=== PATIENT | female | born 1955 | race Caucasian/White ===

== ENCOUNTER 2024-01-24 14:24 | Observation (INO) ==
[2024-01-24 15:15] LABS: Basophils % (auto) 1.5 %; Eosinophils # (auto) 0.34 K/uL (0.00-0.50); Eosinophils % (auto) 5.2 %; Hematocrit (blood only) 45.1 % (37.0-47.0); Hemoglobin 14.5 g/dl (12.0-16.0); Immature Granulocytes # (auto) 0.01 K/uL (0.01-0.20); Immature Granulocytes % (auto) 0.2 %; Lymphocytes # (auto) 3.08 K/uL (1.20-3.40); Lymphocytes % (auto) 47.1 %; Mean Corpuscular Hemoglobin 30.3 pg (25.0-34.0); Mean Corpuscular Hgb Conc 32.2 g/dL (32.0-36.0); Mean Corpuscular Volume 94.2 fL (80.0-100.0); Mean Platelet Volume 8.8 fL (9.4-12.4); Monocytes # (auto) 0.55 K/uL (0.11-0.59); Monocytes % (auto) 8.4 %; Neutrophils # (auto) 2.46 K/uL (1.40-6.50); Neutrophils % (auto) 37.6 %; Platelet Count 297 K/uL (130-400); RDW Coefficient of Variation 12.4 % (11.5-14.5); RDW Standard Deviation 43.5 fL (36.4-46.3); Red Blood Count 4.79 M/uL (4.20-5.40); White Blood Count 6.54 K/ul (4.8-10.8)
[2024-01-24 15:47] LABS: INR 0.9 (0.9-1.1); Partial Thromboplastin Time 26 Seconds (21-31); Prothrombin Time 10.3 Seconds (9.0-12.0)
[2024-01-24 16:15] LABS: Albumin Globulin Ratio 1.5 (0.9-2); Albumin Level 4.3 gm/dl (3.4-5.0); BUN Creatinine Ratio 14.9 (10-20); Bilirubin,Total 0.3 mg/dl (0.2-1.0); Calcium 9.5 mg/dl (8.6-10.3); Creatinine Clr Calc Pharmacy 59.1 ml/min; Est GFR (African American) 95.8 ml/min; Est GFR (Non-African American) 82.7 ml/min; Globulin 2.8 gm/dl (2.5-4.0); Potassium 4.4 mmol/L (3.5-5.1); Total Protein 7.1 gm/dl (6.0-8.3)
--- NOTE | 2024-01-24 16:15 | XRay Report ---
SINGLE VIEW CHEST CLINICAL HISTORY: Atypical chest pain. FINDINGS: A PA chest radiograph is compared to chest x-ray and chest CT dated 10/10/2014. The cardiome diastinal silhouette is unremarkable. The lungs and pleural spaces are clear. No pneumothorax is seen . The skeletal structures are osteopenic. The bony thorax is grossly intact. Cholecystectomy clips ar e seen in the right upper quadrant. An indeterminant radiodensity projects over the left cerebral cla vicular soft tissues. IMPRESSION: No active disease in the chest. ACT 112: Negative or not required by law. Electronically signed by: Tuan Rhodes M.D. 01/24/2024 4:13 PM
[2024-01-24 16:22] LABS: Troponin I High Sensitivity 4.7 pg/ml (0-14)
[2024-01-24] MEDS: ASPIRIN CHEW 324 MG PO STA (18:45)
--- NOTE | 2024-01-24 18:46 | Emergency Department Note ---
Impression & Plan Chest pain, LBBB (left bundle branch block) ED Provider Note NAME: RUDY ARANDA AGE: 69 SEX: F : 1955 ARRIVES VIA: Walk-In INFORMANT: Patient, ED PROVIDER(S): Rashid Pugh DO CHIEF COMPLAINT: Chest pain HPI: The patient is a 69-year-old female who presented to the emergency department for an evaluation of chest pain. The patient went to see her family doctor today because of ongoing and worsening symptoms over the course of the last several weeks. She was sent immediately to the emergency department for further workup because her EKG was abnormal. Patient denies having any fever or coughing. She denies having any lower extremity swelling. She denies having any difficulty breathing at this time but states when her pain is worse it seems to go to her back her arms and she also appears to be short of breath. The patient did not have an outpatient workup but was sent directly to the emergency department. ROS: See above HPI for pertinent positives & negatives. A total of 10 systems reviewed and were otherwise negative. PAST MEDICAL HISTORY: See Below PAST SURGICAL HISTORY: See Below FAMILY HISTORY: See Below SOCIAL HISTORY: See Below HOME MEDICATIONS: See Below ALLERGIES: See Below VITALS: See Below PHYSICAL EXAMINATION: GENERAL: Patient is awake alert in no acute distress patient is resting comfortably and showing no signs of anxiety EYES: The conjunctivae are clear. The pupils are round and reactive. EARS, NOSE, MOUTH AND THROAT: The nose is without any evidence of any deformity. NECK: The neck is nontender and supple. RESPIRATORY: Normal respiratory effort is noted there is no evidence of wheezing rhonchi or rales CARDIOVASCULAR: Regular rate and rhythm noted there no murmurs rubs or gallops normal S1 normal S2. GASTROINTESTINAL: The abdomen is soft. Abdomen is nontender. MUSCULOSKELETAL/EXTREMITIES: There is no evidence of gross deformity full range of motion is noted in the hips and shoulders. SKIN: There is no obvious evidence of any rash. There are no petechiae, pallor or cyanosis noted. NEUROLOGIC: Patient is awake alert and oriented x3 MEDICAL DECISION MAKING: The patient is a 69-year-old female who presented to the emergency department at the request of her primary care physician. The patient presented to her family doctor with chest discomfort and shortness of breath. She did note some radiation of the pain as well as exertional component. She was told to go to the emergency department because her EKG was abnormal. In the emergency department her EKG was compared to previous and does not appear to be significantly changed. The patient's cardiac biomarker was negative x 2 but given her age and comorbidities I do not feel the patient would be a good candidate for outpatient treatment. For this reason I discussed her condition with the on-call [facility] hospitalist. They have agreed to evaluate the patient in the emergency department for further management and disposition. The patient was treated with aspirin in the emergency department. Triage Nursing notes reviewed. Prior medical records reviewed Vital Signs: reviewed and remarkable for elevated blood pressure. Differential diagnosis: Cardiac ischemia, aortic dissection, pulmonary embolism, pneumothorax, pneumonia, pericarditis, myocarditis, esophageal rupture, GERD, cholecystitis, pancreatitis, musculoskeletal, as well as other pathologies. ER treatment provided: See below Diagnostics interpreted by me: ECG: EKG was obtained in the emergency department. My interpretation is normal sinus rhythm at 82 bpm. There was no ectopy. There was no acute ST segment abnormalities noted. A left bundle branch block pattern was noted. This was compared to a tracing from August 10, 2014. No changes were noted. Cardiac Monitoring: An order was placed for continuous cardiac monitoring. The monitor shows a rate of 73 bpm with sinus rhythm. Laboratory studies: As stated above and show below. Imaging studies: See below. Radiographic imaging was reviewed by myself Consultation(s): I discussed this case with Dr. Bowling who is on-call for the [facility] group. Past Med/Surg History Problem List (Updated 01/25/24 @ 00:37 by Rashid Pugh DO) LBBB (left bundle branch block) (Acute) Chest pain (Acute) Fibromyalgia (Chronic) Chest wall contusion (Acute) Fall (Acute) Social History Smoking Status: Never smoker Hx Alcohol Use: No Hx Substance Use: No Preferred Language: Japanese [employer] Required: No Beliefs That Will Affect Care: None Current Living Situation: Spouse Feels Safe at Home: Yes Assistive Devices: None Allergies Allergies Allergy/AdvReac Type Severity Reaction Status Date / Time No Known Allergies Allergy Unverified 01/24/24 20:02 Home Meds Home Medications Medication Instructions Recorded Confirmed alprazolam 0.5 mg tablet (Xanax) 0.5 mg PO BID #0 tabs 10/10/14 01/24/24 desvenlafaxine succinate 50 mg 50 mg PO QAM 01/24/24 01/24/24 tablet,extended release 24 hr esomeprazole magnesium 40 mg 40 mg PO HS 01/24/24 01/24/24 capsule,delayed release estradiol 0.01% (0.1 mg/gram) 1 g vaginal 3XWK 01/24/24 01/24/24 vaginal cream lisinopril 10 mg tablet 10 mg PO QAM 01/24/24 01/24/24 multivitamin 1 tab PO HS 01/24/24 01/24/24 tolterodine 4 mg capsule,extended 4 mg PO QAM 01/24/24 01/24/24 release 24 hr Results & Data (ED) Vital Signs Vital Signs - 24 hr 01/24/24 14:33 01/24/24 18:16 01/24/24 18:33 Temperature 36.7 C Temperature Source Temporal Artery Scan Pulse Rate 85 70 Pulse Rate [Apical] 71 Respiratory Rate 20 18 Respiratory Effort / Characteristics Non-Labored Spontaneous Respiratory Depth Normal Respiratory Pattern Regular Blood Pressure 145/75 H Blood Pressure [Right Arm] 184/74 H Blood Pressure Mean 98 Blood Pressure Mean [Right Arm] 110 Pulse Oximetry 98 98 Oxygen Delivery Method Room Air Room Air Sepsis Recent Fever Within 48 Hours No Sepsis New/Unexplained Change in Mental Status No Sepsis Action Taken by Nursing No Action Required 01/24/24 20:00 01/24/24 20:35 01/24/24 21:15 Temperature Temperature Source Pulse Rate 75 92 H Pulse Rate [Apical] 84 Respiratory Rate 17 Respiratory Effort / Characteristics Respiratory Depth Respiratory Pattern Blood Pressure 159/83 H 158/85 H Blood Pressure [Right Arm] 157/89 H Blood Pressure Mean Blood Pressure Mean [Right Arm] 111 Pulse Oximetry 97 Oxygen Delivery Method Room Air Sepsis Recent Fever Within 48 Hours Sepsis New/Unexplained Change in Mental Status Sepsis Action Taken by Nursing 01/24/24 22:00 Temperature Temperature Source Pulse Rate Pulse Rate [Apical] 73 Respiratory Rate 19 Respiratory Effort / Characteristics Respiratory Depth Respiratory Pattern Blood Pressure Blood Pressure [Right Arm] 125/76 Blood Pressure Mean Blood Pressure Mean [Right Arm] 92 Pulse Oximetry 95 Oxygen Delivery Method Room Air Sepsis Recent Fever Within 48 Hours Sepsis New/Unexplained Change in Mental Status Sepsis Action Taken by Skilled Nursing Medications Current Medication List: was personally reviewed by me Laboratory Data Attestation: I reviewed the patient's lab results. 01/24/24 14:50 01/24/24 14:50 Lab Results 01/24/24 01/24/24 Range/Units 14:50 18:50 WBC 6.54 (4.8-10.8) K/ul RBC 4.79 (4.20-5.40) M/uL Hgb 14.5 (12.0-16.0) g/dl Hct 45.1 (37.0-47.0) % MCV 94.2 (80.0-100.0) fL MCH 30.3 (25.0-34.0) pg MCHC 32.2 (32.0-36.0) g/dL RDW Std Deviation 43.5 (36.4-46.3) fL RDW Coeff of Nigel 12.4 (11.5-14.5) % Plt Count 297 (130-400) K/uL MPV 8.8 L (9.4-12.4) fL Immature Gran % (Auto) 0.2 % Neut % (Auto) 37.6 % Lymph % (Auto) 47.1 % [place] % (Auto) 8.4 % Eos % (Auto) 5.2 % Baso % (Auto) 1.5 % Neut # (Auto) 2.46 (1.40-6.50) K/uL Lymph # (Auto) 3.08 (1.20-3.40) K/uL [place] # (Auto) 0.55 (0.11-0.59) K/uL Eos # (Auto) 0.34 (0.00-0.50) K/uL Baso # (Auto) 0.10 (0.00-0.20) K/uL Immature Gran # (Auto) 0.01 (0.01-0.20) K/uL PT 10.3 (9.0-12.0) Seconds INR 0.9 (0.9-1.1) APTT 26 (21-31) Seconds PTT Ratio 1.0 Sodium 140 (136-145) mmol/L Potassium 4.4 (3.5-5.1) mmol/L Chloride 105 (98-107) mmol/L Carbon Dioxide 28 (21-32) mmol/L Anion Gap 7 (3-11) BUN 11 (6-23) mg/dl Creatinine 0.74 (0.6-1.2) mg/dl Est Cr Clr Drug Dosing 59.1 ml/min Est GFR ( Amer) 95.8 ml/min Est GFR (Non-Af Amer) 82.7 ml/min BUN/Creatinine Ratio 14.9 (10-20) Glucose 87 (70-99(Fasting)) mg/dl Calcium 9.5 (8.6-10.3) mg/dl Magnesium 2.1 (1.7-2.4) mg/dl Total Bilirubin 0.3 (0.2-1.0) mg/dl AST 22 (13-39) U/L ALT 17 (7-52) U/L Alkaline Phosphatase 79 (34-104) U/L Troponin I High Sens 4.7 4.4 (0-14) pg/ml Total Protein 7.1 (6.0-8.3) gm/dl Albumin 4.3 (3.4-5.0) gm/dl Globulin 2.8 (2.5-4.0) gm/dl Albumin/Globulin Ratio 1.5 (0.9-2) Administered Medications Alprazolam (Alprazolam 0.5 Mg Tablet) 0.5 mg PO BID CLARIBEL Stop: 02/23/24 22:29 Last Admin: 01/25/24 00:03 Dose: 0.5 mg Documented By: JUANCHO Lactated Ringer's (Lr) 1,000 mls @ 50 mls/hr IV .Q20H ONE Stop: 01/25/24 18:23 Last Admin: 01/24/24 23:34 Dose: 50 mls/hr Documented By: JUANCHO Multivitamins (Multivitamin Tab) 1 tab PO HS CLARIBEL Stop: 02/23/24 22:24 Last Admin: 01/25/24 00:03 Dose: 1 tab Documented By: JUANCHO Pantoprazole Sodium (Pantoprazole 40 Mg Tab) 40 mg PO HS CLARIBEL Stop: 02/23/24 22:44 Last Admin: 01/25/24 00:03 Dose: 40 mg Documented By: JUANCHO Discontinued Medications Aspirin (Aspirin Chew 324 Mg) 324 mg PO NOW STA Stop: 01/24/24 18:40 Last Admin: 01/24/24 18:45 Dose: 324 mg Documented By: CONCEPCION Metoprolol Tartrate (Metoprolol Tartrate 1 Mg/Ml Vial) 2.5 mg IV NOW STA Stop: 01/24/24 19:26 Last Admin: 01/24/24 20:35 Dose: 2.5 mg Documented By: KEVIN Imaging Data Attestation: I personally reviewed and interpreted this imaging study as follows: My Impression: 1 view chest x-ray was obtained in the emergency department. My interpretation is no free air or definite infiltrate, final report below. Radiologist's Impression: Chest X-Ray 01/24/24 14:36 SINGLE VIEW CHEST CLINICAL HISTORY: Atypical chest pain. FINDINGS: A PA chest radiograph is compared to chest x-ray and chest CT dated 10/10/2014. The cardiomediastinal silhouette is unremarkable. The lungs and pleural spaces are clear. No pneumothorax is seen. The skeletal structures are osteopenic. The bony thorax is grossly intact. Cholecystectomy clips are seen in the right upper quadrant. An indeterminant radiodensity projects over the left cerebral clavicular soft tissues. IMPRESSION: No active disease in the chest. ACT 112: Negative or not required by law. Electronically signed by: Tuan Rhodes M.D. 01/24/2024 4:13 PM Discharge Plan Visit Data Chief Complaint: Referred by Doctor Stated Complaint: ABD EKG, REF BY DOC ED Provider: Rashid Pugh Discharge Problem: Chest pain, LBBB (left bundle branch block) Patient Disposition: Admitted As Inpatient Discharge Instructions Interventions: ED Discharge Assessment Last Done: 01/24/24 22:49 Discharge Problem: Chest pain Qualifiers: Chest pain type: unspecified Qualified Code(s): R07.9 - Chest pain, unspecified
[2024-01-24 19:25] LABS: Troponin I High Sensitivity 4.4 pg/ml (0-14)
--- NOTE | 2024-01-24 19:38 | History & Physical Report ---
Date of Service January 24, 2024 History of Present Illness Chief Complaint: Chest Pain Primary Care Provider: Bella Quigley MD Tory Balbuena is a 69y/o F with PMHx of hyperlipidemia, HTN, IBS, diverticulosis, urinary incontinence, fibromyalgia, osteoporosis, depression, LUCAS and other problems listed below who presented to the ED for evaluation secondary to chest pain. History obtained from patient and associated chart review. Patient recently established care with Dr. Quigley at [facility] in October. Patient has been experiencing feelings of her "heart racing" since September. She thought it may be due to stress from getting ready to move here from [place] and figured it would go away once she was settled. Since October, she has noticed the frequency of these "heart racing" sensations have increased to occur almost weekly and are now associated with some chest pain. She describes this chest pain as more of a tightness rather than sharp. She had an EKG done by her PCP to day that showed the following: NSR, left ventricular hypertrophy with secondary QRS widening and LBBB. Patient with chronic history of LBBB. PCP ultimately recommended that the patient come to the ED for further evaluation given new finding of LVH with secondary QRS widening. Patient drove herself to the ED. She reports that she had a cardiac catheterization in the early to mid that was normal. She also mentions she had cardiac stress testing done in the past that was negative for any acute findings. EKG done in the ED showing NSR w/ HR 82bpm and LBBB. CXR negative for any active disease. Lab work rather unremarkable, troponin negative. She was loaded with aspirin 324mg in the ED. BP noted to be elevated at 184/75 at 18:33 in the ED. IV metoprolol tartrate 2.5mg was administered. Patient saturating well on RA. PRN nitroglycerin was ordered as well. Patient with frequent runs of PVCs with associated tachycardia throughout our conversation while she was at rest. Allergies Allergy/AdvReac Type Severity Reaction Status Date / Time No Known Allergies Allergy Unverified 01/24/24 20:02 Home Medications Medication Instructions Recorded Confirmed Type alprazolam 0.5 mg tablet (Xanax) 0.5 mg PO BID #0 tabs 10/10/14 01/24/24 History desvenlafaxine succinate 50 mg 50 mg PO QAM 01/24/24 01/24/24 History tablet,extended release 24 hr esomeprazole magnesium 40 mg 40 mg PO HS 01/24/24 01/24/24 History capsule,delayed release estradiol 0.01% (0.1 mg/gram) 1 g vaginal 3XWK 01/24/24 01/24/24 History vaginal cream lisinopril 10 mg tablet 10 mg PO QAM 01/24/24 01/24/24 History multivitamin 1 tab PO HS 01/24/24 01/24/24 History tolterodine 4 mg capsule,extended 4 mg PO QAM 01/24/24 01/24/24 History release 24 hr Past Med/Surg History Problem List (Updated 01/25/24 @ 00:37 by Rashid Pugh DO) LBBB (left bundle branch block) (Acute) Chest pain (Acute) Fibromyalgia (Chronic) Chest wall contusion (Acute) Fall (Acute) Social History Smoking Status: Never smoker Hx Alcohol Use: No Hx Substance Use: No Preferred Language: [place] [employer] Justice Required: No Beliefs That Will Affect Care: None Current Living Situation: Spouse Feels Safe at Home: Yes Assistive Devices: None Review of Systems Review of Systems: At least ten systems reviewed and negative, except as noted in the HPI. Physical Exam Physical Exam: General: WD/WN, vitals as above, NAD, sitting up in bed, pleasant, conversing appropriately. A+Ox3, euthymic affect. HEENT: Normocephalic, atraumatic. PERRL, conjunctivae normal, anicteric sclerae, oropharynx normal. Respiratory: Normal respiratory effort, lungs clear to auscultation, no wheeze, rales, rhonchi. No accessory muscle use. Cardiovascular: Regular rate, rhythm, no murmur, normal peripheral pulses, no BLE edema. Vessels: No JVD. Abdomen/GI: Normal bowel sounds, soft, nontender, no hepatosplenomegaly. Extremities/Musculoskeletal: No cyanosis or clubbing, extremities motor strength 5/5, moves all extremities. Neurologic: EOMI, accommodation nl, no face palsy, no dysarthria, CN's II-XI not formally tested but appear grossly intact bilaterally. Skin: No rashes, normal color, warm/dry. Results & Data Results & Data Vital Signs (Past 12 Hours) Vital Signs Temp Pulse Pulse Resp BP BP Pulse Ox 01/24/24 18:33 70 01/24/24 18:16 71 18 184/74 H 98 01/24/24 14:33 36.7 C 85 20 145/75 H 98 O2 Del Method 01/24/24 18:33 01/24/24 18:16 Room Air 01/24/24 14:33 Room Air Laboratory Results Short CBC 01/24/24 Range/Units 14:50 WBC 6.54 (4.8-10.8) K/ul Hgb 14.5 (12.0-16.0) g/dl Hct 45.1 (37.0-47.0) % Plt Count 297 (130-400) K/uL BMP 01/24/24 14:50 Sodium 140 Potassium 4.4 Chloride 105 Carbon Dioxide 28 BUN 11 Creatinine 0.74 Glucose 87 Calcium 9.5 Liver Function 01/24/24 Range/Units 14:50 Total Bilirubin 0.3 (0.2-1.0) mg/dl AST 22 (13-39) U/L ALT 17 (7-52) U/L Alkaline Phosphatase 79 (34-104) U/L Albumin 4.3 (3.4-5.0) gm/dl Diagnostic Findings Chest X-Ray 01/24/24 14:36 SINGLE VIEW CHEST CLINICAL HISTORY: Atypical chest pain. FINDINGS: A PA chest radiograph is compared to chest x-ray and chest CT dated 10/10/2014. The cardiomediastinal silhouette is unremarkable. The lungs and pleural spaces are clear. No pneumothorax is seen. The skeletal structures are osteopenic. The bony thorax is grossly intact. Cholecystectomy clips are seen in the right upper quadrant. An indeterminant radiodensity projects over the left cerebral clavicular soft tissues. IMPRESSION: No active disease in the chest. ACT 112: Negative or not required by law. Electronically signed by: Tuan Rhodes M.D. 01/24/2024 4:13 PM Medications Administered Discontinued Medications Aspirin (Aspirin Chew 324 Mg) 324 mg PO NOW STA Stop: 01/24/24 18:40 Last Admin: 01/24/24 18:45 Dose: 324 mg Documented By: [facility] [place] Code Status & VTE Plan Code Status FULL CODE Supervising Physician Co-Signing Physician Notes IM ATTENDING : Patient seen and examined. History obtained from patient and records. Concur with salient points upon review of preceding documentation by Ms. Kortney Womack,ELIAN. I take responsibility for plan of care below. FINAL ASSESSMENT AND PLAN as follows : Chest pain, palpitations a few months duration possibly from uncontrolled BP Rule out ACS Hyperlipidemia on statin Rx Anxiety/mood disorder, at baseline History of fibromyalgia History urge incontinence Past tobacco abuse OBS PCU Add beta-ridge to BP regimen given palpitations and tachycardia at home Aspirin for CAD prevention until ACS ruled out Follow troponin Cardiology consult in a.m. re: chest pain and palpitations N.p.o. after midnight until patient seen by cardiology in anticipation of ischemic workup DVT prophylaxis. Lovenox subcu Full code Text document was generated using [employer] voice recognition software. It may contain grammatical or spelling errors. Kindly contact undersigned for clarification of any documentation item in question.
[2024-01-24] MEDS ORDERED: NITROGLYCERIN SL 0.4 MG/TAB TAB SL PRN (19:44)
[2024-01-24 19:54] LABS: Magnesium 2.1 mg/dl (1.7-2.4)
[2024-01-24] MEDS: METOPROLOL TARTRATE 1 MG/ML VIAL IV STA (20:35)
[2024-01-24] MEDS ORDERED: MoRPHine SULFATE 2 MG/ML CARP IV PRN (22:22)
[2024-01-24] MEDS ORDERED: LORazepam 0.5 MG TAB PO PRN (22:22)
[2024-01-24] MEDS ORDERED: PROMETHAZINE 6.25 MG/50.25 ML BAG IV PRN (22:22)
[2024-01-24] MEDS ORDERED: traMADol HCL 50 MG TABLET PO PRN (22:22)
[2024-01-24] MEDS: LACTATED RINGER'S 1,000 ML IV ONE (23:34)
[2024-01-25] MEDS: ALPRAZolam 0.5 MG TABLET PO SCH (00:03)
[2024-01-25] MEDS: MULTIVITAMIN TAB PO SCH (00:03)
[2024-01-25] MEDS: PANTOprazole 40 MG TAB PO SCH (00:03)
--- OUTSIDE RECORDS SUMMARY | 2024-01-25 03:47 | External Medical Summary | Summary of Care ---
Author Name Unknown Organization [facility] Address [address] [facility] [place] [address] Phone [phone] Care Team Providers Care Engineering Director Name Role Phone Bella Quigley MD Primary Care Provider Reason for Visit * Reason Onset Date Comments Medication Refill 01/11/2024 Encounter Details Date Type Department Care Team (Late st Contact Info) Description 01/11/2024 Refill Family Practice [facility] [address] [place] [address] Bella Quigley MD [address] [place] [address] Recurrent major depressive disorder, in partial remission (HCC) Allergies No known active allergiesdocumented as of this encounter (statuses as of 01/13/2024) Medications Medication Sig Dispensed Refills Start Date End Date Status Lisinopril 10 MG Oral Tablet (Prinivil) Take 1 Tablet by mouth in the morning. Active Tolterodine Tartrate ER 4 MG Oral Capsule Extended Release 24 Hour (Detrol LA) Take 1 Capsule by mouth in the morning. Active Esomeprazole Magnesium 40 MG Oral Capsule Delayed Release Take 1 Capsule by mouth in the morning. Active Desvenlafaxine Succinate ER 50 MG Oral Tablet Extended Release 24 Hour (Pristiq)Indications :Recurrent major depressive disorder, in partial remission (HCC) Take 1 Tablet by mouth daily. 90 Tablet 1 11/26/2023 Active ALPRAZolam 0.5 MG Oral Tablet (xaNAX)Indications:G AD (generalized anxiety disorder) Take 1 Tablet by mouth 2 times a day as needed for Sleep. 60 Tablet 11/26/2023 Active Lactulose 10 GM/15ML Oral Solution (Constulose)Indicati ons:Drug-induced constipation Take 30 mL by mouth daily as needed for Constipation. 240 mL 1 11/26/2023 Active Estradiol 0.1 MG/GM Vaginal Cream (Estrace) Administer 1 g into the vagina. Active documented as of this encounter (statuses as of 01/13/2024) Active Problems Problem Noted Date Diagnosed Date Insomnia 12/26/2023 Diverticulosis of colon 12/26/2023 Fibromyalgia 11/26/2023 Hypertension 11/26/2023 Hyperlipidemia 11/26/2023 Major depressive disorder 11/26/2023 LUCAS (generalized anxiety disorder) 11/26/2023 S/P total abdominal hysterectomy 11/26/2023 Osteoporosis 11/26/2023 Overview: Recommended medication, declined. Last DEXA 6yrs ago Irritable bowel syndrome 12/22/2022 Mixed incontinence 12/21/2022 Urge incontinence 09/29/2022 Acute sinusitis, unspecified 09/14/2022 documented as of this encounter (statuses as of 01/13/2024) Social History Tobacco Use Types Packs/Day Years Used Date Smoking Tobacco: Former Cigarettes Smokeless Tobacco: Never Alcohol Use Standard Drinks/Week Comments Not Currently 0 (1 standard drink = 0.6 oz pur e alcohol) PHQ-2 Answer Date Recorded PHQ Adult Total Score 0 11/26/2023 Hunger Vital Sign Answer Date Recorded Within the past 12 months, y ou worried that your food would run out before you got the money to buy more. Never true 11/25/19 24 Within the past 12 months, t he food you bought just didn't last and you didn't have money to get more. Never true 11/25/2023 Childcare Answer Date Recorded Do you feel overwhelmed with taking care of a child, family member or friend? No 11/25/2023 Does your family need help f inding childcare? (Household - for ages 0-17 years) Not on file 11/25/2023 Clothing Answer Date Recorded Have you been unable to get clothing when it was really needed? No 11/25/2023 Is your family able to get c lothes or diapers when needed? (Household - for ages 0-17 years) Not on file 11/25/2023 Personal Safety Answer Date Recorded Do you feel unsafe or have concerns for your saf ety? No 11/25/2023 Do you have concerns for you r family's safety? (Household - for ages 0-17 years) Not on file 11/25/2023 Utilities Answer Date Recorded Do you have trouble paying y our heating, water, or electric bill? No 11/25/2023 Is your family able to pay t he heat, water, or electric bill? (Household - for ages 0-17 years) Not on file 11/25/2023 Does your family have access to good internet? (Household - for ages 0-17 years) Not on file 11/25/2023 Employment Status Answer Date Recorded Are you unemployed or without regular income? No 11/25/2023 Does the household have a re lar source of income? (Household - for ages 0-17 years) Not on file 11/25/2023 Social Connections Answer Date Recorded How often do you feel lonely or isolated from th ose around you? Never 11/25/2023 Financial Resource Strain Answer Date R ecorded Do you have any trouble payi ng for your medications, or do you think you might in the future? No 11/25/2023 Does your family have troubl e paying for medicine? (Household - for ages 0-17 years) Not on file 11/25/2023 Transportation Needs Answer Date Record ed Do you have trouble getting a ride to medical visits or work? (Adult - for ages 18 years and over) Not on file 11/25/2023 Does your family have a hard time getting a ride to doctors visits? (Household - for ages 0-17 years) Not on file 11/25/2023 Has lack of transportation k ept you from medical appointments, meetings, work, or from getting things needed for daily living? Check all that apply. No 11/25/2023 Do you (or your family) have trouble finding or paying for a ride (transportation)? (Household - for ages 0-17 years) Not on file 11/25/2023 Housing Stability Answer Date Recorded Do you currently live in a s helter or have no steady place to sleep at night? No 11/25/2023 Do you think you are at risk of becoming homeless? (Adult - for ages 18 years and over) Not on file 11/25/2023 Does your family worry about paying for your home or becoming homeless? (Household - for ages 0-17 years) Not on file 0 11/25/2023 Are you homeless or worried that you might be in the future? No 11/25/2023 Are you (or your family) ryley eless or worried that you might be in the future? (Household - for ages 0-17 years) Not on file Food Insecurity Answer Date Recorded Do you need food for this week? No 11/25/2023 Are you able to get enough f ood for your family? (Household - for ages 0-17 years) Not on file 11/25/2023 Does your family need food t his week? (Household - for ages 0-17 years) Not on file 11/25/2023 Do you always have enough fo od for your family? (Household - for ages 0-17 years) Not on file 11/25/2023 Sex and Gender Information Value Date Recorded Sex Assigned at Female 11/25/2023 11:13 PM EDT Gender Identity Male 11/25/2023 11:13 PM EDT Sexual Orientation Straight 11/25/2023 11 :13 PM EDT Job Start Date Occupation Industry Not on file Not on file Not on file documented as of this encounter Miscellaneous Notes * Telephone Encounter - Kamar Garcia [facility] - 01/13/2024 9:32 AM EDTRefused Prescriptions: Disp Refills Desvenlafaxine Succinate ER 50 MG Oral Tab*90 Tab*1 Sig: Take 1Tablet by mouth daily.Refused By: KAMAR GARCIA for Refusal: Too soon documented in this encounter Plan of Treatment Upcoming Encounters Date Type Department Care Team (Late st Contact Info) Description 01/24/2024 1:00 PM EDT Nurse Only Ancillary [facility] [address] [place] [address] [place] Nurse Annual Wellness [facility] [address] [place] [address] 06/14/2024 12:20 PM EST Office Visit Family Practice [facility] [address] [place] [address] Bella Quigley MD [address] [place] [address] 06/27/2024 3:00 PM EST [facility] [place] [id number] [facility] [address] Health Maintenance Due Date Last Done Comments Hepatitis C Screening 1973 DTaP,Tdap,and Td Vaccines (1 - Tdap) 1974 VITAMIN D LEVEL ONCE IN A LIFETIME-USE SMARTSET# [id number] 1995 Cologuard 01/02/2000 Colonoscopy 01/02/2000 Colorectal Cancer Screening 01/02/2000 Fecal Occult Blood Test 01/02/2000 Sigmoidoscopy 01/02/2000 DXA Scan 2005 Zoster Vaccines (1 of 2) 2005 Pneumococcal Vaccine: 65+ Years (1 of 1 - PCV) 01/02/2020 Adult Wellness Visit 2021 COVID-19 Vaccine (2 - 2022-2 4 season) 2023 08/17/2020 *BISPHONATE OR OTHER ACCEPTABLE MEDICATION NEEDED FOR OSTEOPOROSIS (REFER TO SMARTSET #1146) 11/28/2023 Influenza Vaccine (FLU shot) (#1) 2024 Depression Monitoring 11/25/2024 11/26/2023 GFR 11/25/2024 11/26/2023, 10/10/2014 Mammogram 12/26/2024 12/27/2023 Albumin/Creatinine Ratio 11/25/2026 11/26/2023 Diabetes Screening 11/25/2026 11/26/2023, 10/10/2014 Lipid Panel 11/25/2028 11/26/2023 HPV (Gardasil) Vaccine Aged Out No lo nger eligible based on patient's age to complete this topic Hepatitis B Vaccine Aged Out No longe r eligible based on patient's age to complete this topic MENINGOCOCCAL (MENACTRA/MENVEO) Aged Out No longer eligible b ased on patient's age to complete this topic documented as of this encounter Medical Devices Not on filedocumented as of this encounter Visit Diagnoses Diagnosis Recurrent major depressive disorder, in partial remission (HCC) documented in this encounter Care Teams Engineering Director Relationship Specialty Start Date End Date Bella Quigley MD [address] [place] [address] PCP - General Internal Medicine 12/23/23 documented as of this encounter
--- OUTSIDE RECORDS SUMMARY | 2024-01-25 03:48 | External Medical Summary | Summary of Care ---
Author Name Unknown Organization [facility] Address [address] [facility] [place] [address] Phone [phone] Care Team Providers Care Delivery Analyst Name Role Phone Unavailable Primary Care Provider Unavailabl e Encounter Details Date Type Department Care Team (Latest Contact Info) Description 03/29/2020 10:35 AM EDT - 03/29/2020 11:59 PM EDT Hospital Encounter Radiology Film File [address] [place] [address] Discharge Disposition: Home - Self Care Allergies No known active allergiesdocumented as of this encounter (statuses as of 12/24/2023) Medications No known medicationsdocumented as of this encounter (statuses as of 12/24/2023) Active Problems Problem Noted Date Diagnosed Date Fibromyalgia 11/26/2023 Hypertension 11/26/2023 Hyperlipidemia 11/26/2023 Major depressive disorder 11/26/2023 LUCAS (generalized anxiety disorder) 11/26/2023 S/P total abdominal hysterectomy 11/26/2023 Osteoporosis 11/26/2023 Overview: Recommended medication, declined. Last DEXA 6yrs ago Irritable bowel syndrome 12/22/2022 Urge incontinence 09/29/2022 documented as of this encounter (statuses as of 12/24/2023) Social History Tobacco Use Types Packs/Day Years Used Date Smoking Tobacco: Never Assessed PHQ-2 Answer Date Recorded PHQ Adult Total [...] 11/25/2023 Does the household have a re gular source of income? (Household - for ages [...] on file documented as of this encounter Plan of Treatment Upcoming Encounters Date Type Department Care Team (Late st Contact Info) Description 12/27/2023 2:15 PM EDT Imaging Radiology [address] [place] [address] 06/14/2024 12:20 PM EST Office Visit Family Practice [facility] [address] [place] [address] Bella Quigley MD [address] [place] [address] 06/27/2024 3:00 PM EST Imaging Radiology, [place] [id number] [facility] [place] [address] Health Maintenance Due Date Last Done Comments Hepatitis C Screening 1973 DTaP,Tdap,and Td Vaccines (1 - Tdap) 1974 Mammogram 1995 VITAMIN D LEVEL ONCE IN A LIFETIME-USE SMARTSET# [id number] 1995 Cologuard 01/02/2000 Colonoscopy 01/02/2000 Colorectal Cancer Screening 01/02/2000 Fecal Occult Blood Test 01/02/2000 Sigmoidoscopy 01/02/2000 DXA Scan 2005 Zoster Vaccines (1 of 2) 2005 Pneumococcal Vaccine: 65+ Years (1 of 1 - PCV) 01/02/2020 COVID-19 Vaccine (2 - 2022-2 4 season) 2023 08/17/2020 *BISPHONATE OR OTHER ACCEPTABLE MEDICATION NEEDED FOR OSTEOPOROSIS (REFER TO SMARTSET #1146) 11/28/2023 Influenza Vaccine (FLU shot) (#1) 2024 Depression Monitoring 11/25/2024 11/26/2023 GFR 11/25/2024 11/26/2023, 10/10/2014 Albumin/Creatinine Ratio 11/25/2026 11/26/2023 Diabetes Screening 11/25/2026 [...] Not on filedocumented as of this encounter Procedures Procedure Name Priority Date/Time Associated Diagnosis Comments RADIOLOGY EXAM - MAMMOGRAPHY (IMAGES ONLY, NO REPORT) Routine 03/29/2020 10:35 AM EDT documented in this encounter Results * RADIOLOGY EXAM - MAMMOGRAPHY (IMAGES ONLY, NO REPORT) (03/29/2020 10:35 AM EDT) 03/29/2020 10:3 4 AM EDT Narrative Scheduling, Silent - 12/23/2023 11:15 AM EDT This is an imaging study not interpreted or resulted by a [facility] or [facility] contracted radiologist. Bella Quigley MD RAD MAMMOGRAPH Y documented in this encounter
--- OUTSIDE RECORDS SUMMARY | 2024-01-25 03:48 | External Medical Summary | Summary of Care ---
Author Name Unknown Organization [facility] Address [address] [facility] [place] [address] Phone [phone] Care Team Providers Care Environmental Restoration Planner Name Role Phone Unavailable Primary Care Provider Unavailabl e Encounter Details Date Type Department Care Team (Latest Contact Info) Description 10/04/2017 12:15 PM EDT - 10/04/2017 11:59 PM EDT Hospital Encounter Radiology Film File [address] [place] [address] Discharge Disposition: Home - Self [...] Description 12/27/2023 2:15 PM EDT Imaging Radiology [address] [place] [address] 06/14/2024 12:20 PM EST Office Visit Family Practice [facility] [address] [place] [address] Bella Quigley MD [address] [place] [address] 06/27/2024 3:00 PM EST Imaging Radiology, [place] [address] [facility] [place] [address] Health Maintenance Due Date Last Done Comments Hepatitis C Screening 1973 DTaP,Tdap,and Td Vaccines (1 - Tdap) 1974 Mammogram 1995 VITAMIN D LEVEL ONCE IN A LIFETIME-USE SMARTSET# [id number] 1995 Cologuard 01/02/2000 Colonoscopy 01/02/2000 Colorectal Cancer [...] - MAMMOGRAPHY (IMAGES ONLY, NO REPORT) Routine 10/04/2017 12:15 PM EDT documented in this encounter Results * RADIOLOGY EXAM - MAMMOGRAPHY (IMAGES ONLY, NO REPORT) (10/04/2017 12:15 PM EDT) 10/04/2017 12:1 1 PM EDT Narrative Scheduling, Silent - 12/23/2023 11:14 AM EDT This is an imaging study not interpreted or resulted by a [facility] or [facility] radiologist. Bella Quigley MD RAD MAMMOGRAPH Y documented in this encounter
--- OUTSIDE RECORDS SUMMARY | 2024-01-25 03:48 | External Medical Summary | Summary of Care ---
Author Name Unknown Organization [facility] Address [address] [facility] [place] [address] Phone [phone] Care Team Providers Care Flag Signalman Name Role Phone Bella Quigley MD Primary Care Provider Reason for Visit * Reason Onset Date Comments Health Maintenance 01/03/2024 Encounter Details Date Type Department Care Team (Late st Contact Info) Description 01/03/2024 Telephone Family Practice [facility] [address] [place] [address] Bella Quigley MD [address] [place] [address] Health Maintenance Allergies No known active allergiesdocumented as of this encounter (statuses as of 01/03/2024) Medications Medication Sig Dispensed Refills Start Date [...] MG Oral Tablet Extended Release 24 Hour (Pristiq)Indication s:Recurrent major depressive disorder, in partial remission (HCC) Take 1 Tablet by mouth daily. 90 Tablet 1 11/26/2023 Active ALPRAZolam 0.5 MG Oral Tablet (xaNAX)Indications: LUCAS (generalized anxiety disorder) Take 1 Tablet by mouth 2 times a day as needed for Sleep. 60 Tablet 11/26/2023 Active Lactulose 10 GM/15ML Oral Solution (Constulose)Indicat ions:Drug-induced constipation Take 30 mL by mouth daily as needed for Constipation. 240 mL 1 11/26/2023 Active Estradiol 0.1 MG/GM Vaginal Cream (Estrace) Administer 1 g into the vagina. Active Amoxicillin-Pot Clavulanate 875-125 MG Oral Tablet (Augmentin)Indicati ons:Sinus pressure,Sinus congestion Take 1 Tablet by mouth in the morning and 1 Tablet before bedtime. Do all this for 10 days. 20 Tablet 12/26/2023 01/05/2024 Active documented as of this encounter (statuses as of 01/03/2024) Active Problems Problem Noted Date Diagnosed Date [...] as of this encounter (statuses as of 01/03/2024) Social History Tobacco Use Types Packs/Day Years [...] encounter Miscellaneous Notes * Telephone Encounter - David HawkinsCHACORTA watson - 01/03/2024 9:16 AM EDT Care Gaps Comprehensive Care Outreach Last Office/Telemedicine Visit: 11/26/2023 (in office), Visit date not found (telemedicine) Next Office Visit: 06/14/2024 Hemoglobin AIC Results: No results found for: "HEMOGLOBIN A1C" BP Readings from Last 1 Encounters: 11/26/23 118/60 Reviewed Health Maintenance below: Health Maintenance Topic Date Due Hepatitis C Screening Never done DTaP,Tdap,and Td Vaccines (1 - Tdap) Never done VITAMIN D LEVEL ONCE IN A LIFETIME-USE SMARTSET# [id number] Never done Colorectal Cancer Screening Never done DXA Scan Never done Zoster Vaccines (1 of 2) Never done Pneumococcal Vaccine: 65+ Years (1 of 1 - PCV) Never done COVID-19 Vaccine (2 - 2022- season) 2023 *BISPHONATE OR OTHER ACCEPTABLE MEDICATION NEEDED FOR OSTEOPOROSIS (REFER TO SMARTSET #1146) Never done awv Dexa already scheduled Colon just establsihed getting records Care Gap Outreach Action Taken: Retina Implantt message sent documented in this encounter Plan of Treatment Upcoming Encounters Date Type Department Care Team (Late st Contact Info) Description 06/14/2024 12:20 PM EST [facility] [place] [address] Bella Quigley MD [address] [place] [address] 06/27/2024 3:00 PM EST Imaging Radiology, [place] [address] [facility] [place] [address] Health Maintenance Due Date Last Done Comments Hepatitis C Screening 1973 DTaP,Tdap,and Td Vaccines (1 - Tdap) 1974 VITAMIN D LEVEL ONCE IN A LIFETIME-USE SMARTSET# [id number] 1995 Cologuard 01/02/2000 Colonoscopy 01/02/2000 Colorectal Cancer Screening 01/02/2000 Fecal Occult Blood Test 01/02/2000 Sigmoidoscopy 01/02/2000 DXA Scan 2005 Zoster Vaccines (1 of 2) 2005 Pneumococcal Vaccine: 65+ Years (1 of 1 - PCV) 01/02/2020 COVID-19 Vaccine (2 - 2022-07 4 season) 2023 08/17/2020 *BISPHONATE OR OTHER [...] Not on filedocumented as of this encounter Care Teams Flag Signalman Relationship Specialty Start Date End Date Bella Quigley MD [address] [place] [address] PCP - General Internal Medicine 12/23/23 documented as of this encounter
--- OUTSIDE RECORDS SUMMARY | 2024-01-25 03:48 | External Medical Summary ---
Author Name Unknown Address Unknown Organization K01:[facility] [place] [address] [place] [address] Laboratory Report Ordering Provider Test Date Status ALYSHA WESTBROOK 11/26/2023 09:31:06 Final Normal: <30 mg/g creatinine< br/>High: 30-300 mg/g creatinine
Very High: >300 mg/g creatinine
Nephrotic: >2200 mg/g creatinine Observation Date Value Abnormality Reference (Units ) Status Albumin, Urine 11/26/2023 09:31:06 <1.20 (mg/dL) Final Creatinine, Urine 11/26/2023 09:31:06 70 (mg/dL) Final Albumin/Creatinine [Mass Ratio] in Urine 11/26/2023 09:31:06 <17 <30 (mg/g Creat) Final Performing Location [facility] [place] - [address] [place] [address]
--- OUTSIDE RECORDS SUMMARY | 2024-01-25 03:48 | External Medical Summary | Summary of Care ---
Author Name Unknown Organization [facility] Address [address] [facility] [place] [address] Phone [phone] Care Team Providers Care Process Development Manager Name Role Phone Unavailable Primary Care Provider Unavailabl e Reason for Visit * Reason Comments Outpatient Testing Encounter Details Date Type Department Care Team (Late st Contact Info) Description 11/26/2023 9:50 AM EDT Laboratory Laboratory, [facility] [address] [facility] [id number] [facility] [address] [place] [place] [id number] Hyperlipidemia, unspecified hyperlipidemia type; Hypertension, unspecified type; Abnormal results of liver function studies Allergies No known active allergiesdocumented as of this encounter (statuses as of 11/26/2023) Medications Medication Sig Dispensed Refills Start Date [...] Administer 1 g into the vagina. Active Pneumococcal 20-Henny Conj Vacc 0.5 ML Intramuscular Suspension Prefilled Syringe (Prevnar 20)Indications:Need for Streptococcus pneumoniae vaccination Inject 0.5 mL into a large muscle once for 1 dose. 0.5 mL 11/26/2023 11/26/2023 Active Cyskskm-Iakmbz-Ngssd Pertussis 5-2.5-18.5 LF-MCG/0.5 Suspension Prefilled Syringe (Boostrix)Indication s:Need for noncyexkhu-emkbzoh-a ertussis (Tdap) vaccine Inject 0.5 mL into a large muscle once for 1 dose. As directed 0.5 mL 11/26/2023 11/26/2023 Active documented as of this encounter (statuses as of 11/26/2023) Active Problems Problem Noted Date Diagnosed Date Fibromyalgia 11/26/2023 Hypertension 11/26/2023 Hyperlipidemia 11/26/2023 Major depressive disorder 11/26/2023 LUCAS (generalized anxiety disorder) 11/26/2023 S/P total abdominal hysterectomy 11/26/2023 Osteoporosis 11/26/2023 Overview: Recommended medication, declined. Last DEXA 6yrs ago Irritable bowel syndrome 12/22/2022 Urge incontinence 09/29/2022 documented as of this encounter (statuses as of 11/26/2023) Social History Tobacco Use Types Packs/Day Years Used Date Smoking Tobacco: Former Cigarettes Smokeless Tobacco: Never Alcohol Use Standard Drinks/Week Comments Not Currently 0 (1 standard drink = 0.6 oz pur e alcohol) Hunger Vital Sign Answer Date Recorded Within [...] Care Team (Late st Contact Info) Description 11/29/2023 2:00 PM EDT Imaging Radiology, [facility] [address] [place] [address] 12/01/2023 1:15 PM EDT Imaging Radiology [address] [place] [address] 06/14/2024 12:20 PM EST Office Visit Family [facility] [address] [place] [address] Bella Quigley MD [address] [place] [address] Pending Results Name Type Priority Associated Diagnoses Date /Time LIPID PANEL WITH DIRECT LDL IF TG IS HIGH Lab Routine Hyperlipidemia, unspecified hyperlipidemia type 11/26/2023 9:27 AM EDT BASIC METABOLIC PANEL Lab Routine Hypertension, unspecified type 11/26/2023 9:27 AM EDT HEPATIC FUNCTION PANEL Lab Routine Abnormal results of liver function studies 11/26/2023 9:27 AM EDT ALBUMIN / CREATININE RATIO, URINE Lab Routine Hypertension, unspecified type 11/26/2023 9:31 AM EDT Health Maintenance Due Date Last Done Comments Lipid Panel 1955 Albumin/Creatinine Ratio 1973 Hepatitis C Screening 1973 DTaP,Tdap,and Td Vaccines (1 - Tdap) 1974 Mammogram 1995 VITAMIN D LEVEL ONCE IN A LIFETIME-USE SMARTSET# [id number] 1995 Cologuard 01/02/2000 Colonoscopy 01/02/2000 Colorectal Cancer Screening 01/02/2000 Fecal Occult Blood Test 01/02/2000 Sigmoidoscopy 01/02/2000 DXA Scan 2005 Zoster Vaccines (1 of 2) 2005 GFR 10/11/2015 10/10/2014 Diabetes Screening 10/10/2017 10/10/2014 Pneumococcal Vaccine: 65+ Ye ars (1 of 1 - PCV) 01/02/2020 COVID-19 Vaccine (2 - 2022-2 4 season) 2023 08/17/2020 Influenza Vaccine (FLU shot) (Season Ended) 2024 Depression Monitoring 11/25/2024 11/26/2023 GARDASIL-HPV IMMUNIZATION SERIES Aged Out No longer eligible based on patient's age to complete this topic Hepatitis B Aged Out No longer eligi ble based on patient's age to complete this topic MENINGOCOCCAL (MENACTRA/MENVEO) Aged Out No longer eligible based on patient's age to complete this topic documented as of this encounter Medical Devices Not on filedocumented as of this encounter Visit Diagnoses Diagnosis Hyperlipidemia, unspecified hyperlipidemia type Hypertension, unspecified type Abnormal results of liver function studies Nonspecific abnormal results of liver function study documented in this encounter
--- OUTSIDE RECORDS SUMMARY | 2024-01-25 03:48 | External Medical Summary | Summary of Care ---
Author Name Unknown Organization [facility] Address [address] [facility] [place] [address] Phone [phone] Care Team Providers Care Quartz Mounter Name Role Phone Unavailable Primary Care Provider Unavailabl e Reason for Visit * Reason Onset Date Comments Advice 11/26/2023 Encounter Details Date Type Department Care Team (Late st Contact Info) Description 11/26/2023 Telephone Family Practice [facility] [address] [place] [address] Bella Quigley MD [address] [place] [address] Advice Allergies No known active allergiesdocumented as of [...] 1 dose. 0.5 mL 11/26/2023 11/26/2023 Active Ymbbprb-Xcekpv-Vujgt Pertussis 5-2.5-18.5 LF-MCG/0.5 Suspension Prefilled Syringe (Boostrix)Indication s:Need for lyfnjpuzmz-blruhck-l ertussis (Tdap) vaccine Inject 0.5 mL into [...] encounter Miscellaneous Notes * Telephone Encounter - Radha Hugo, field test engineer - 11/26/2023 11:18 AM EDT Pharmacy calling asking last and future office visit Thank you, Radha Hugo [facility] 11/26/2023,11:18 AM documented in this encounter Plan of Treatment Upcoming Encounters Date Type Department Care Team (Late st Contact Info) Description 11/29/2023 2:00 PM EDT Imaging Radiology, [place] [id number] [facility] [place] [address] 12/01/2023 1:15 PM EDT Imaging Radiology [facility] [address] [facility] [address] [place] [address] 06/14/2024 12:20 PM EST Office Visit Family Practice [facility] [address] [place] [address] Bella Quigley MD [address] [place] [address] Health Maintenance Due Date Last Done Comments Lipid Panel 1955 Albumin/Creatinine Ratio 1973 Hepatitis C Screening 1973 DTaP,Tdap,and Td Vaccines (1 - Tdap) 1974 Mammogram 1995 VITAMIN D LEVEL ONCE IN A LIFETIME-USE SMARTSET# [id number] 1995 Cologuard 01/02/2000 Colonoscopy 01/02/2000 Colorectal Cancer Screening 01/02/2000 Fecal Occult Blood Test 01/02/2000 Sigmoidoscopy 01/02/2000 DXA Scan 2005 Zoster Vaccines (1 of 2) 2005 Pneumococcal Vaccine: 65+ Years (1 of 1 - PCV) 01/02/2020 COVID-19 Vaccine (2 - 2022-2 4 season) 2023 08/17/2020 Influenza Vaccine (FLU shot) (Season Ended) 2024 Depression Monitoring 11/25/2024 11/26/2023 GFR 11/25/2024 11/26/2023, 10/10/2014 Diabetes Screening 11/25/2026 11/26/2023, 10/10/2014 GARDASIL-HPV IMMUNIZATION SERIES Aged Out No longer eligible b ased [...]
--- OUTSIDE RECORDS SUMMARY | 2024-01-25 03:48 | External Medical Summary | Summary of Care ---
Author Name Unknown Organization [facility] Address [address] [facility] [place] [address] Phone [phone] Care Team Providers Care Linen Supply Load Builder Name Role Phone Unavailable Primary Care Provider Unavailabl e Reason for Visit * Reason Comments Outpatient Testing Encounter Details Date Type Department Care Team (Late st Contact Info) Description 11/26/2023 9:50 AM EDT Laboratory Laboratory, [facility] [address] [facility] [facility] [id number] [facility] [address] [place] [id number] Hyperlipidemia, unspecified hyperlipidemia type; Hypertension, unspecified type; [...] 1 dose. 0.5 mL 11/26/2023 11/26/2023 Active Xybbxdv-Ffimpd-Nuuef Pertussis 5-2.5-18.5 LF-MCG/0.5 Suspension Prefilled Syringe (Boostrix)Indication s:Need for cqbfiqwdax-xfxhkwf-a ertussis (Tdap) vaccine Inject 0.5 mL into [...] Description 11/29/2023 2:00 PM EDT Imaging Radiology, [facility] [address] [facility] [place] [address] 12/01/2023 1:15 PM EDT Imaging Radiology [address] [place] [address] 06/14/2024 12:20 PM EST Office Visit Family [facility] [address] [place] [address] Bella Quigley MD [address] [place] [address] Pending Results Name Type Priority Associated Diagnoses [...] D LEVEL ONCE IN A LIFETIME-USE SMARTSET# [id number] 1995 Cologuard 01/02/2000 Colonoscopy 01/02/2000 Colorectal Cancer [...]
--- OUTSIDE RECORDS SUMMARY | 2024-01-25 03:48 | External Medical Summary | Summary of Care ---
Author Name Unknown Organization [facility] Address [address] [place] [address] Phone [phone] Care Team Providers Care Advertising Solicitor Name Role Phone Unavailable Primary Care Provider Unavailabl e Encounter Details Date Type Department Care Team (Latest Contact Info) Description 03/20/2022 2:10 PM EDT - 03/20/2022 11:59 PM EDT Hospital Encounter Radiology Film File [address] [place] [address] Discharge Disposition: Home - Self [...] Description 12/27/2023 2:15 PM EDT Imaging Radiology [address] [place] [address] 06/14/2024 12:20 PM EST Office Visit Family Practice [facility] [address] [place] [address] Bella Quigley MD [address] [place] [address] 06/27/2024 3:00 PM EST Imaging Radiology, [facility] [address] [facility] [place] [address] Health Maintenance Due Date Last Done Comments Hepatitis C Screening 1973 DTaP,Tdap,and Td Vaccines (1 - Tdap) 1974 Mammogram 1995 VITAMIN D LEVEL ONCE IN A LIFETIME-USE SMARTSET# [id number] 1995 Cologuard 01/02/2000 Colonoscopy 01/02/2000 Colorectal Cancer [...] - MAMMOGRAPHY (IMAGES ONLY, NO REPORT) Routine 03/20/2022 2:10 PM EDT documented in this encounter Results * RADIOLOGY EXAM - MAMMOGRAPHY (IMAGES ONLY, NO REPORT) (03/20/2022 2:10 PM EDT) 03/20/2022 2:08 PM EDT Narrative Scheduling, Silent - 12/23/2023 11:15 AM EDT This is an imaging study not interpreted or resulted by a [facility] or [facility] contracted radiologist. Bella Quigley MD RAD MAMMOGRAPH Y documented in this encounter
--- OUTSIDE RECORDS SUMMARY | 2024-01-25 03:48 | External Medical Summary ---
Author Name Unknown Address Unknown Organization [facility] [place] [address] [place] [address] Laboratory Report Ordering Provider Test Date Status ALYSHA WESTBROOK 11/26/2023 09:27:20 Final Observation Date Value Abnormality Reference (Units ) Status Albumin 11/26/2023 09:27:20 4.4 3.8-5.0 (g/dL) Final AST (Aspartate aminotransferase) 11/26/2023 09:27:20 23 10-35 (U/L) Final Alk Phos 11/26/2023 09:27:20 94 35-130 (U/L) Final ALT (Alanine aminotransferase) 11/26/2023 09:27:20 21 10-35 (U/L) Final Bilirubin, Total 11/26/2023 09:27:20 0.3 <=1.2 (mg/dL) Final Bilirubin, Direct 11/26/2023 09:27:20 <0.2 0.0-0.3 (mg/dL) Final Protein 11/26/2023 09:27:20 6.8 6.0-8.3 (g/dL) Final [facility] Location [facility] [place] [address]
--- OUTSIDE RECORDS SUMMARY | 2024-01-25 03:48 | External Medical Summary | Summary of Care ---
Author Name Unknown Organization [facility] Address [address] [facility] [place] [address] Phone [phone] Care Team Providers Care Customer Contact Representative Name Role Phone Bella Quigley MD Primary Care Provider Reason for Visit * Reason Comments Sinus Problem Encounter Details Date Type Department Care Team (Late st Contact Info) Description 12/26/2023 9:20 AM EDT Telemedicine [facility] [address] [place] [address] Rupinder Mccullough PA-C [address] [place] [address] Sinus pressure*; Sinus congestion Allergies No known active allergiesdocumented as of this encounter (statuses as of 12/26/2023) Medications Medication Sig Dispensed Refills Start Date [...] as of this encounter (statuses as of 12/26/2023) Active Problems Problem Noted Date Diagnosed Date [...] as of this encounter (statuses as of 12/26/2023) Social History Tobacco Use Types Packs/Day Years [...] No 11/25/2023 Does the household have a [facility] source of income? (Household - for ages [...] on file documented as of this encounter Progress Notes * Rupinder Mccullough PA-C - 12/26/2023 9:16 AM EDT Patient location: HOME. I was not in a hospital or clinic location. After connecting through [employer], patient was verified with two unique identifiers. Patient (or authorized legal residential sales representative) was then informed that this was a Telemedicine visit and being conducted confidentially over secure lines. Methods to assure confidentiality were taken. Patient acknowledged consent and understanding of privacy and security of the Telemedicine visit. The patient agreed to participate. Virtual Urgent Care Tory Balbuena is a 68 year old year old adult who presents for evaluation of sinus symptoms. Patient presents with sinus congestion, pressure, headache, L ear fullness x 7-8 days. Tried Mucinex, Motrin at home. Denies fevers, vision changes, neck pain, chest pain, SOB, n/v/d, numbness tingling, dizziness. No known sick contacts. Hx of sinus infections in the past. REVIEW OF SYSTEMS: See HPI for pertinent positives and negatives. All other ROS reviewed and negative. PAST MEDICAL HISTORY: Past Surgical History: Procedure Laterality Date NH DELIVERY ONLY 1984 NH DELIVERY ONLY 1992 NH CHOLECYSTECTOMY 1979 NH TOTAL ABDOMINAL HYSTERECT W/WO RMVL TUBE OVARY 1995 ovaries as well. for fibroids. cervix remains. REPAIR BLADDER DEFECT 03/2023 Social History Tobacco Use Smoking status: Former Types: Cigarettes Smokeless tobacco: Never Substance Use Topics Alcohol use: Not Currently Vaping/E-Cigarette Use Vaping/E-Cigarette Substances Vaping/E-Cigarette Devices Patient Active Problem List Diagnosis Fibromyalgia Hypertension Hyperlipidemia Irritable bowel syndrome Major depressive disorder LUACS (generalized anxiety disorder) S/P total abdominal hysterectomy Osteoporosis Urge incontinence Mixed incontinence Insomnia Diverticulosis of colon Acute sinusitis, unspecified Review of patient's allergies indicates: No Known Allergies Current Outpatient Medications Medication Sig Dispense Refill Amoxicillin-Pot Clavulanate 875-125 MG Oral Tablet (Augmentin) Take 1 Tablet by mouth in the morning and 1 Tablet before bedtime. Do all this for 10 days. 20 Tablet 0 Lisinopril 10 MG Oral Tablet (Prinivil) Take 1 Tablet by mouth in the morning. Tolterodine Tartrate ER 4 MG Oral Capsule Extended Release 24 Hour (Detrol LA) Take 1 Capsule by mouth in the morning. Esomeprazole Magnesium 40 MG Oral Capsule Delayed Release Take 1 Capsule by mouth in the morning. Desvenlafaxine Succinate ER 50 MG Oral Tablet Extended Release 24 Hour (Pristiq) Take 1 Tablet by mouth daily. 90 Tablet 1 ALPRAZolam 0.5 MG Oral Tablet (xaNAX) Take 1 Tablet by mouth 2 times a day as needed for Sleep. 60 Tablet 0 Lactulose 10 GM/15ML Oral Solution (Constulose) Take 30 mL by mouth daily as needed for Constipation. 240 mL 1 Estradiol 0.1 MG/GM Vaginal Cream (Estrace) Administer 1 g into the vagina. No current facility-administered medications for this visit. PHYSICAL EXAM: Unable to obtain vitals - Exam within limits of telemedicine visit GENERAL: Patient is alert, well appearing HEENT: Atraumatic. No conjunctival injection. No periorbital swelling. + nasal congestion. Normal voice. LUNGS: Normal effort, no coughing. No distress. SKIN: No visible rash. NEURO: Normal fluent speech, no facial droop PSYCH: Normal behavior, mood. Assessment: Sinus pressure (Primary) - Amoxicillin-Pot Clavulanate 875-125 MG Oral Tablet (Augmentin); Take 1 Tablet by mouth in the morning and 1 Tablet before bedtime. Do all this for 10 days. Sinus congestion - Amoxicillin-Pot Clavulanate 875-125 MG Oral Tablet (Augmentin); Take 1 Tablet by mouth in the morning and 1 Tablet before bedtime. Do all this for 10 days. Possible bacterial sinusitis given persistent sinus pressure/congestion; trial abx + mucinex, flonase, motrin/tylenol prn Discussed medications and possible side effects Pt understands limited nature of exam today - Advised to present to convenient care clinic or PCP if worsening/no better in next 48 hrs for in person visit ER with any severe symptoms as discusses Rupinder Mccullough PA-C Virtual Urgent Care [address] [place] [address]. [facility] [address] documented in this encounter Plan of Treatment Upcoming Encounters Date Type Department Care Team (Late st Contact Info) Description 12/27/2023 2:15 PM EDT Imaging Radiology [facility] [facility] [address] [place] [address] 06/14/2024 12:20 PM EST Office Visit Family Practice [facility] [address] [place] [address] Bella Quigley MD [address] [place] [address] 06/27/2024 3:00 PM EST [address], [address] [address] Health Maintenance Due Date Last Done Comments Hepatitis C Screening 1973 DTaP,Tdap,and Td Vaccines (1 - Tdap) 1974 Mammogram 1995 VITAMIN D LEVEL ONCE IN A LIFETIME-USE SMARTSET# [id number] 1995 Cologuard 01/02/2000 Colonoscopy 01/02/2000 Colorectal Cancer [...] as of this encounter Visit Diagnoses Diagnosis Sinus pressure- Primary Other diseases of nasal cavity and sinuses Sinus congestion Other diseases of nasal cavity and sinuses documented in this encounter Care Teams Customer Contact Representative Relationship Specialty Start Date End Date Blela Quigley MD [address] [place] [address] PCP - General Internal Medicine 12/23/23 documented as of this encounter
--- OUTSIDE RECORDS SUMMARY | 2024-01-25 03:48 | External Medical Summary | Summary of Care ---
Author Name Unknown Organization [facility] Address [address] [facility] [place] [address] Phone [phone] Care Team Providers Care Energy Infrastructure Engineer Name Role Phone Bella Quigley MD Primary Care Provider Reason for Visit * Reason Onset Date Comments Health Maintenance 01/03/2024 Encounter Details Date Type Department Care Team (Late st Contact Info) Description 01/03/2024 Telephone Family Practice [facility] [address] [place] [address] Bella Quigley MD [address] [place] [address] Health Maintenance Allergies No known active allergiesdocumented as of this encounter (statuses as of 01/04/2024) Medications Medication Sig Dispensed Refills Start Date [...] as of this encounter (statuses as of 01/04/2024) Active Problems Problem Noted Date Diagnosed Date [...] as of this encounter (statuses as of 01/04/2024) Social History Tobacco Use Types Packs/Day Years [...] D LEVEL ONCE IN A LIFETIME-USE SMARTSET# [id number] Never done Colorectal Cancer Screening Never done DXA Scan Never done Zoster Vaccines (1 of 2) Never done Pneumococcal Vaccine: 65+ Years (1 of 1 - PCV) Never done COVID-19 Vaccine (2 - season) 2023 *BISPHONATE OR OTHER ACCEPTABLE MEDICATION NEEDED FOR OSTEOPOROSIS (REFER TO SMARTSET #1146) Never done awv Dexa already scheduled Colon just establsihed getting records Care Gap Outreach Action Taken: Viibar message sent documented in this encounter Plan of Treatment Upcoming Encounters Date Type Department Care Team (Late st Contact Info) Description 01/24/2024 1:00 PM EDT Nurse Only Ancillary [facility] [address] [place] [address] [place] Nurse Annual Wellness [facility] [address] [place] [address] 06/14/2024 12:20 PM EST Office Visit Family Practice [facility] [address] [place] [address] Bella Quigley MD [address] [place] [address] 06/27/2024 3:00 PM EST Imaging Radiology, [place] [address] [place] [address] Health Maintenance Due Date Last Done Comments Hepatitis C Screening 1973 DTaP,Tdap,and Td Vaccines (1 - Tdap) 1974 VITAMIN D LEVEL ONCE IN A LIFETIME-USE SMARTSET# [id number] 1995 Cologuard 01/02/2000 Colonoscopy 01/02/2000 Colorectal Cancer [...] filedocumented as of this encounter Care Teams Energy Infrastructure Engineer Relationship Specialty Start Date End Date Bella Quigley MD [address] [place] [address] PCP - General Internal Medicine 12/23/23 documented as of this encounter
--- OUTSIDE RECORDS SUMMARY | 2024-01-25 03:48 | External Medical Summary | Summary of Care ---
Author Name Unknown Organization [facility] Address [address] [place] [address] Phone [phone] Care Team Providers Care Food Consultant Name Role Phone Unavailable Primary Care Provider Unavailabl e Reason for Visit * Reason Comments NEW PATIENT Establish care Encounter Details Date Type Department Care Team (Latest Contact Info) Description 11/26/2023 8:20 AM EDT Office Visit Family Practice [facility] [address] [place] [address] Bella Quigley MD [address] [place] [address] HTN, goal below 140/90*; Screening mammogram for breast cancer; Need for Streptococcus pneumoniae vaccination; Drug-induced constipation; Recurrent major depressive disorder, in partial remission (HCC); LUCAS (generalized anxiety disorder); Hyperlipidemia, unspecified hyperlipidemia type; Osteoporosis without current pathological fracture, unspecified osteoporosis type; Abnormal results of liver function studies; Need for hxeqnyebmv-ovjsjoj-crli ussis (Tdap) vaccine Allergies No known active allergiesdocumented as of [...] once for 1 dose. 0.5 mL 11/26/2023 4 Active Qhynzlu-Bezqrw-Nkem l Pertussis 5-2.5-18.5 LF-MCG/0.5 Suspension Prefilled Syringe (Boostrix)Indicatio ns:Need for diphtheria-tetanus- pertussis (Tdap) vaccine Inject 0.5 mL into a large muscle once for 1 dose. As directed 0.5 mL 11/26/2023 4 Active Desvenlafaxine Succinate ER 50 MG Oral Tablet Extended Release 24 Hour (Pristiq) TAKE 1 BY MOUTH ONCE DAILY 11/12/2023 4 Discontinue d(Refill) ALPRAZolam 0.5 MG Oral Tablet (xaNAX) TAKE 2 TO 3 TABLETS BY MOUTH ONCE DAILY 4 Discontinue d(Refill) Lactulose 10 GM/15ML Oral Solution (Constulose) Take 30 mL by mouth in the morning and 30 mL at noon and 30 mL before bedtime. 4 Discontinue d(Refill) Uewaozv-Pdljrv-Xhqh l Pertussis 5-2.5-18.5 LF-MCG/0.5 Suspension Prefilled Syringe (Boostrix)Indicatio ns:Need for diphtheria-tetanus- pertussis (Tdap) vaccine Inject 0.5 mL into a large muscle once for 1 dose. As directed 0.5 mL ML 11/26/2023 Discontinue d(Refill) documented as of this encounter (statuses as [...] Smoking Tobacco: Former Cigarettes Smokeless Tobacco: Never Tobacco Cessation:Counseling Given: Not Answered Alcohol Use Standard Drinks/Week Comments Not Currently [...] on file documented as of this encounter Last Filed Vital Signs Vital Sign Reading Time Taken Comments Blood Pressure 118/60 11/26/2023 8:04 AM EDT Pulse 94 11/26/2023 8:04 AM EDT Temperature - - Respiratory Rate 16 11/26/2023 8:04 AM EDT Oxygen Saturation 97% 11/26/2023 8:04 AM EDT Inhaled Oxygen Concentration - - Weight 61.3 kg (135 lb 3.2 oz) 11/26/2023 8:04 A M EDT Height 154 cm (5' 0.63") 11/26/2023 8:04 AM EDT Body Mass Index 25.86 11/26/2023 8:04 AM EDT documented in this encounter Patient Instructions * Patient Instructions* Angeli Zuniga, MED ASSIST - 11/26/2023 8:03 AM EDT Images from the original note were not included. Colorectal Cancer Screening Colorectal cancer (cancer in the colon or rectum) is a leading cause of cancer deaths in the [place] But it doesnt have to be. When this cancer is found and removed early, the chances of a full recovery are very good. Because colorectal cancer rarely causes symptoms in its early stages, screening for the disease is important. Its even more crucial if you have risk factors for the disease. Learn more about colorectal cancer and its risk factors. Then talk to your healthcare provider about being screened. You could be saving your own life. Risk factors for colorectal cancer Your risk of having colorectal cancer increases if you: Are 50 years of age or older Have a family history or personal history of colorectal cancer or polyps Have a personal history of type 2 diabetes, Crohns disease, or ulcerative colitis Have an inherited genetic syndrome like De La Rosa syndrome (also known as HNPCC) or familial adenomatous polyposis (FAP) Are very overweight Are not physically active Smoke Drink a lot of alcohol Eat a lot of red or processed meat The colon and rectum Waste from food you eat enters the colon from the small intestine. As it travels through the colon,the waste (stool) loses water and becomes more solid. Intestinal muscles push it toward the sigmoid--the last section of the colon. Stool then moves into the rectum, where its stored until its ready to leave the body during a bowel movement. How cancer develops Polyps are growths that form on the inner lining of the colon or rectum. Most are benign, which means they arent cancerous. But over time, some polyps can become cancer (malignant). This happens when cells in these polyps begin growing abnormally. In time, malignant cells invade more and more ofthe colon and rectum. The cancer may also spread to nearby organs or lymph nodes or to other parts of the body. Finding and removing polyps can help prevent cancer from ever forming. Your screening Screening means looking for a health problem before you have symptoms. During screening for colorectal cancer, your healthcare provider will ask about your health history, examine you, and do one or more tests. History and exam The history and exam involve the following: Health history. Your healthcare provider will ask about your health history. Mention if a family member has had colon cancer or polyps. Also mention any health problems you have had in the past. Digital rectal exam (BRIAN). During a BRIAN, the healthcare provider inserts a lubricated gloved fingerinto the rectum. The test is painless and takes less than a minute. Healthcare providers agree thatthis test alone is not enough to screen for colorectal cancer. Screening test choices: Fecal occult blood test (FOBT) or fecal immunochemical test (FIT) These tests check for occult blood in stool (blood you cant see). Hidden blood may be a sign of colon polyps or cancer. A small sample of stool is tested for blood in a laboratory. Most often, youcollect this sample at home using a kit your healthcare provider gives you. Follow the instructionscarefully for using this kit. You might need to avoid certain foods and medicines before the test, as directed. Barium enema with contrast (double-contrast barium enema) This test uses X-rays to provide images of the entire colon and rectum. The day before this test, you will need to do a bowel prep to clean out the colon and rectum. A bowel prep is a liquid diet plus strong laxatives or enemas. You will be awake for the test, but you may be given medicine to help you relax. At the start of the test, a radiologist (a healthcare provider who specializes in imagingtests) places a soft tube into the rectum. The tube is used to fill the colon with a contrast liquid (barium) and air. This can be uncomfortable for some people. The liquid helps the colon show up clearly on the X-rays. Because the test uses X-rays, it exposes you to a small amount of radiation. Virtual colonoscopy This exam is also called a CT colonography. It uses a series of X-ray photographs to create a 3-D view of the colon and rectum. The day before the test, you will need to do a bowel prep to clean out your colon. Your healthcare provider will give you instructions on how to do this. During the procedure, you will lie on a table that is part of a special X-ray machine called a CT scanner. A small tube will be placed into your rectum to fill the colon and rectum with air. This can be uncomfortable for some people. Then, the table will move into the machine and pictures will be taken of your colonand rectum. A computer will combine these photos to create a 3-D picture. Because the test uses X-rays, it exposes you to a small amount of radiation. Cologuard Cologuard is an easy to use, noninvasive colon cancer screening test that you can use in the privacy of your own home. It identifies altered DNA and/or blood in stool, which are associated with the possibility of colon cancer or precancer. DNA is continuously shed from cells in the intestinal lining, where it is passed into the stool. Ifcancer or precancer is present, abnormal cells will shed into the colon and stool along with normalcells. A molecular biology process is used to capture specific pieces of DNA for further analysis. Scope exams Here are two types of scope exams: Colonoscopy. This test can be used to find and remove polyps anywhere in the colon or rectum. The day before the test, you will do a bowel prep. This is a liquid diet plus a strong laxative solution or an enema. The bowel prep will cleanse your colon. You will be given instructions for this. Just before the test, you are given a medicine to make you sleepy. Then, a long, flexible, lighted tube called a colonoscope is gently inserted into the rectum and guided through the entire colon. Images ofthe colon are viewed on a video screen. Any polyps that are found are removed and sent to a lab fortesting. If a polyp cant be removed, a sample of tissue is taken and the polyp might be removed l ater during surgery. You will need to bring someone with you to drive you home after this test. Sigmoidoscopy. This test is similar to colonoscopy, but focuses only on the sigmoid colon and rectum. As with colonoscopy, bowel prep must be done the day before this test. It might not need to be ascomplete as the bowel prep for a colonoscopy. You are awake during the procedure, but you may be given medicine to help you relax. During the test, the healthcare provider guides a thin, flexible, lighted tube called a sigmoidoscope through your rectum and lower colon. The images are displayed on avideo screen. Polyps are removed, if possible, and sent to a lab for testing. Colonoscopy is the only screening test that lets your healthcare provider see the entire colon and rectum. This test also lets your healthcare provider remove any pieces of tissue that need to be looked at by a lab. If something suspicious is found using any other tests, you will likely need a colonoscopy. When to call your healthcare provider after a test Call your healthcare provider if you have any of the following after any screening test: Bleeding Fever of 100.4F (38C) or higher, or as directed by your healthcare provider Abdominal pain Vomiting Date Last Reviewed: 04/03/201519992294-0230 [employer]. [address] [place] [address], [place] [address]. All rights reserved. This information is not intended as a substitute for professional medical care. Always follow your healthcare professional's instructions. documented in this encounter Progress Notes * Bella Quigley MD - 11/26/2023 8:24 AM EDT Images from the original note were not included. History of Present Illness Tory Balbuena is a 68 year old adult that presents for NEW PATIENT ([facility]) Depression: Pristiq helps for depression. Causes constipation. Alprazolam for 25yrs. Takes 2x/day. If has breakthrough anxiety, takes an extra. Has been getting #90 from psychiatrist in [place]. Willing to work on tapering down to as needed. Not able to access PDMP from [place]. Bundle branch block on prior EKG, will try to get us records. Chronic fatigue & Fibromyalgia since third child. Does well with sun. On disability. Not worried about skin cancer. Colonoscopy - last was 6-7yrs ago. No polyps ever. Repeat 10 years. Cervical cancer screening - not sure last Pap smear Nicotine - never Cannabis - none Alcohol - very rarely Eating - terrible at [employer]. Drinks V8 juice daily. O/w 2-3x/wk. Drinks four 16 oz water/day and two 16oz diet pepsi. Centrum MVI daily. Magnesium daily. Cheese, yogurt. Exercise - a lot moving here from [place]. Plans to start walking. Current medications and allergies reviewed. Past medical history and problem list reviewed. Physical Exam Vitals: 11/26/23 0804 Pulse: 94 Resp: 16 SpO2: 97% BP: 118/60 BMI: 25.86 Physical Exam Vitals and nursing note reviewed. Constitutional: General: She is not in acute distress. Appearance: Normal appearance. She is not ill-appearing. HENT: Head: Normocephalic and atraumatic. Right Ear: Tympanic membrane, ear canal and external ear normal. There is no impacted cerumen. Left Ear: Tympanic membrane, ear canal and external ear normal. There is no impacted cerumen. Nose: Nose normal. Mouth/Throat: Mouth: Mucous membranes are moist. Pharynx: Oropharynx is clear. Eyes: General: No scleral icterus. Conjunctiva/sclera: Conjunctivae normal. Pupils: Pupils are equal, round, and reactive to light. Neck: Thyroid: No thyroid mass, thyromegaly or thyroid tenderness. Cardiovascular: Rate and Rhythm: Normal rate and regular rhythm. Heart sounds: No murmur heard. Pulmonary: Effort: Pulmonary effort is normal. Breath sounds: Normal breath sounds. Musculoskeletal: Right lower leg: No edema. Left lower leg: No edema. Lymphadenopathy: Cervical: No cervical adenopathy. Skin: General: Skin is warm and dry. Neurological: Mental Status: She is alert. Psychiatric: Mood and Affect: Mood normal. Behavior: Behavior normal. I have reviewed the following results: None Abdominal ultrasound 2022 - fatty liver, cholecystectomy Mammogram 02/2022 normal Assessment and Plan HTN, goal below 140/90 At goal on current regimen, does not need refills just yet. Will update labs. - BASIC METABOLIC PANEL; Future - ALBUMIN / CREATININE RATIO, URINE; Future Screening mammogram for breast cancer - MAMMOGRAM SCREENING LORI BILATERAL; Future Need for Streptococcus pneumoniae vaccination - Pneumococcal 20-Henny Conj Vacc 0.5 ML Intramuscular Suspension Prefilled Syringe (Prevnar 20); Inject 0.5 mL into a large muscle once for 1 dose. Drug-induced constipation Uses a few times a month. - Lactulose 10 GM/15ML Oral Solution (Constulose); Take 30 mL by mouth daily as needed for Constipation. Recurrent major depressive disorder, in partial remission (HCC) Happy to refill this medication for her - Desvenlafaxine Succinate ER 50 MG Oral Tablet Extended Release 24 Hour (Pristiq); Take 1 Tablet by mouth daily. LUCAS (generalized anxiety disorder) Explained that chronic daily benzodiazepines are problematic in general, and especially so for older patients. My goal will be to wean down to occasional use, which would be teen tabs a month or so. She is willing to try. If we are struggling, we can connect her with Psychiatry. - ALPRAZolam 0.5 MG Oral Tablet (xaNAX); Take 1 Tablet by mouth 2 times a day as needed for Sleep. Hyperlipidemia, unspecified hyperlipidemia type - LIPID PANEL WITH DIRECT LDL IF TG IS HIGH; Future Osteoporosis without current pathological fracture, unspecified osteoporosis type Update DEXA, has not taken medications in the past - DEXA SCAN/BONE MINERAL AXIAL Abnormal results of liver function studies Fatty liver on ultrasound, not sure if LFTs are still abnormal - HEPATIC FUNCTION PANEL; Future Need for yltrkscqxp-jlkxekx-bjcmpwjyl (Tdap) vaccine - Jlispya-Jgraky-Nzoug Pertussis 5-2.5-18.5 LF-MCG/0.5 Suspension Prefilled Syringe (Boostrix); Inject 0.5 mL into a large muscle once for 1 dose. As directed I have reviewed the patient's controlled substance dispensing history in the Prescription Drug Monitoring Program in compliance with the [facility] regulations before prescribing a controlled substance. Wrap-Up Follow Up: Return in about 6 months (around 05/27/2024) for Labs Today, Return with Dann. | For: Labs Today, Return with Dann Time: I spent a total of 40-54 minutes (exact time 47 mins) on the date of service in preparation, delivery, and documentation of the care provided to Tory Balbuena excluding any time spent in the performance of separately billed services. documented in this encounter Plan of Treatment Upcoming Encounters Date Type Department Care Team (Late st Contact Info) Description 11/29/2023 2:00 PM EDT [address] [address] 12/01/2023 1:15 PM EDT Imaging Radiology [facility] [facility] [address] [place] [address] 06/14/2024 12:20 PM EST Office Visit Family Practice [facility] [address] [place] [id number] Bella Quigley MD [address] [place] [address] Scheduled Orders Name Type Priority Associated Diagnoses Orde r Schedule DEXA SCAN/BONE MINERAL AXIAL Medical Imaging Routine Osteoporosis without current pathological fracture, unspecified osteoporosis type Ordered: 11/26/2023 MAMMOGRAM SCREENING LORI BILATERAL Medical Imaging Routine Screening mammogram for breast cancer Expected: 11/26/2023, Expires: 12/25/2024 Health Maintenance Due Date Last Done Comments Hepatitis C Screening 1973 DTaP,Tdap,and Td Vaccines (1 - Tdap) 1974 Mammogram 1995 VITAMIN D LEVEL ONCE IN A LIFETIME-USE SMARTSET# [id number] 1995 Cologuard 01/02/2000 Colonoscopy 01/02/2000 Colorectal Cancer [...] 11/25/2026 11/26/2023, 10/10/2014 Lipid Panel 11/25/2028 11/26/2023 GARDASIL-HPV IMMUNIZATION SERIES Aged Out No [...] Not on filedocumented as of this encounter Results * ALBUMIN / CREATININE RATIO, URINE (11/26/2023 9:31 AM EDT) Albumin, Random Urine <1.20 mg/dL 11/26/2023 4:27 PM EDT [facility] Creatinine, Random Urine 70 mg/dL 11/26/2023 4:27 PM EDT [facility] Albumin / Creatinine Ratio, Urine <17 <30 mg/g Creat 11/26/2023 4:27 PM EDT [facility] Urine Urine specimen obtained by clean catch procedure / Unknown Non-blood Collection / Unknown 11/26/2023 9:31 AM EDT 11/26/2023 9:31 AM EDT Narrative LAB[facility]AT[facility] - 11/26/2023 4:27 PM EDT Normal: <30 mg/g creatinine High: 30-300 mg/g creatinine Very High: >300 mg/g creatinine Nephrotic: >2200 mg/g creatinine Bella Quigley MD LAB URINE [facility] [address] [facility] [place] [address] * HEPATIC FUNCTION PANEL (11/26/2023 9:27 AM EDT) Albumin 4.4 3.8 - 5.0 g/dL 11/26/2023 10:37 AM EDT [facility] [place] [facility] [facility] AST 23 10 - 35 U/L 11/26/2023 10:37 AM EDT [facility] [place] [facility] [facility] Alkaline Phosphatase 94 35 - 130 U/L 11/26/2023 10:37 AM EDT [facility] [place] [facility] ALT 21 10 - 35 U/L 11/26/2023 10:37 AM EDT [facility] [place] [facility] Bilirubin, Total 0.3 <=1.2 mg/dL 11/26/2023 10:37 AM EDT [facility] [place] [facility] Bilirubin, Direct <0.2 0.0 - 0.3 mg/dL 11/26/2023 10:37 AM EDT [facility] [place] [facility] Protein 6.8 6.0 - 8.3 g/dL 11/26/2023 10:37 AM EDT [facility] [place] [facility] [facility] Blood Venous blood specimen / Unknown Venipuncture / Unknown 11/26/2023 9:27 AM EDT 11/26/2023 9:27 AM EDT Bella Quigley MD LAB BLOOD [facility] [place] [facility] [address] [place] [address] * BASIC METABOLIC PANEL (11/26/2023 9:27 AM EDT) BUN 10 6 - 20 mg/dL 11/26/2023 10:37 AM EDT [facility] [place] [facility] [facility] Creatinine 0.9 0.5 - 1.0 mg/dL 11/26/2023 10:37 AM EDT [facility] [place] [facility] Comment:The above reference range is based on the legal sex of the patient only. Results should be interpreted together with patient's sex at , gender identity, and clinical context. Estimated Glomerular Filtration Rate 74 >=60 mL/min 11/26/2023 10:37 AM EDT [facility] [place] [facility] [facility] Comment:eGFR is calculated b ased on the legal sex of the patient, using the CKD- EPI 2020 equation Sodium 140 135 - 146 mmol/L 11/26/2023 10:37 AM EDT [facility] [place] [facility] [facility] Potassium 4.9 3.5 - 5.1 mmol/L 11/26/2023 10:37 AM EDT [facility] [place] [facility] Chloride 105 98 - 107 mmol/L 11/26/2023 10:37 AM EDT [facility] [place] [facility] CO2 26 22 - 32 mmol/L 11/26/2023 10:37 AM EDT [facility] [place] [facility] Anion Gap 9 7 - 15 mmol/L 11/26/2023 10:37 AM EDT [facility] [place] [facility] Glucose 91 70 - 120 mg/dL 11/26/2023 10:37 AM EDT [facility] [place] [facility] Calcium 9.9 8.4 - 10.2 mg/dL 11/26/2023 10:37 AM EDT [facility] Blood Venous blood specimen / Unknown Venipuncture / Unknown 11/26/2023 9:27 AM EDT 11/26/2023 9:27 AM EDT Bella Quigley MD LAB BLOOD [facility] Organization Address City/State/ZIP Co de Phone Number LAB[facility]ORY [place] [facility] [place] [address] * (ABNORMAL) LIPID PANEL WITH DIRECT LDL IF TG IS HIGH (11/26/2023 9:27 AM EDT) Triglycerides 105 <=174 mg/dL 11/26/2023 2:08 PM EDT [facility] Comment: Triglyceride Reference Ranges (mg/dL): <150 Acceptable 150-174 Borderline high 175-499 High >=500 Very high Cholesterol 240(H) <200 mg/dL 11/26/2023 2:08 PM EDT [facility] Comment: Total Cholesterol Reference Ranges (mg/dL): <200 Desirable 200-239 Borderline high >=240 High HDL Cholesterol 61 >49 mg/dL 2:08 PM EDT [facility] Comment: HDL Cholesterol Reference Ranges (mg/dL): >=60 High (Desirable) <50 Low (Undesirable) For Females <40 Low (Undesirable) For Males Non-HDL Cholesterol 179(H) <=159 mg/dL 11/26/2023 2:08 PM EDT [facility] Comment: Non-HDL Cholesterol Reference Range (mg/dL): <100 Target level for high risk ASCVD patient <130 Optimal for general population 130-159 Near optimal for general population 160-189 Borderline High 190-219 High >=220 Very High LDL Cholesterol 158(H) <=129 mg/dL 11/26/2023 2:08 PM EDT [facility] Comment: LDL Cholesterol Reference Ranges (mg/dL): <70 Target level for high risk ASCVD patient <100 Optimal for general population 100-129 Near optimal for general population 130-159 Borderline high 160-189 High >=190 Very high Blood Venous blood specimen / Unknown Venipuncture / Unknown 11/26/2023 9:27 AM EDT 11/26/2023 9:27 AM EDT Bella Quigley MD LAB BLOOD [facility] Organization Address City/State/ZIP Co de Phone Number [facility] [address] [place] [address] documented in this encounter Visit Diagnoses Diagnosis HTN, goal below 140/90- Primary Unspecified essential hypertension Screening mammogram for breast cancer Need for Streptococcus pneumoniae vaccination Need for prophylactic vaccination against streptococcus pneumoniae (pneumococcus) Drug-induced constipation Other constipation Recurrent major depressive disorder, in partial remission (HCC) LUCAS (generalized anxiety disorder) Generalized anxiety disorder Hyperlipidemia, unspecified hyperlipidemia type Osteoporosis without current pathological fracture, unspecified osteoporosis type Abnormal results of liver function studies Nonspecific abnormal results of liver function study Need for robffohdpt-xcxbelo-fxrqoffki (Tdap) vaccine Need for prophylactic vaccination with combined ptdmhoihvr-fibalvz-gwetsxyvp (DTP) vaccine documented in this encounter
--- OUTSIDE RECORDS SUMMARY | 2024-01-25 03:48 | External Medical Summary ---
Author Name Unknown Address Unknown Organization K01[facility] [place] [address] Laboratory Report Ordering Provider Test Date Status ALYSHA WESTBROOK 11/26/2023 09:27:20 Final Observation Date Value Abnormality Reference (Units ) Status Triglyceride 11/26/2023 09:27:20 105 <=174 ( mg/dL) Final Triglyceride Reference Range s (mg/dL):
<150 Acceptable
150-174 Borderline high
175-499 High
>=500 Very high Cholesterol 11/26/2023 09:27:20 240 Above high normal <200 (mg/dL) Final Total Cholesterol Reference Ranges (mg/dL):
<200 Desirable
200-239 Borderline high
>=240 High HDL 11/26/2023 09:27:20 61 >49 (mg/dL ) Final HDL Cholesterol Reference Ra nges (mg/dL):
>=60 High (Desirable)
<50 Low (Undesirable) For Females
<40 Low (Undesirable) For Males NON-HDL CHOLESTEROL 11/26/2023 09:27:20 179 Above high normal <=159 (mg/dL) Final Non-HDL Cholesterol Referenc e Range (mg/dL):
<100 Target level for high risk ASCVD patient
<130 Optimal for general population
130-159 Near optimal for general population
160-189 Borderline High
190-219 High
>=220 Very High LDL, (calculated) 11/26/2023 09:27:20 158 Above high n ormal <=129 (mg/dL) Final LDL Cholesterol Reference Ra nges (mg/dL):
<70 Target level for high risk ASCVD patient
<100 Optimal for general population
100-129 Near optimal for general population
130-159 Borderline high
160-189 High
>=190 Very high Performing Location [facility] [place] [address] [facility] [address]
--- OUTSIDE RECORDS SUMMARY | 2024-01-25 03:48 | External Medical Summary ---
Author Name Unknown Address Unknown Organization K0G:[facility] [place] [facility] [address] [place] [address] Laboratory Report Ordering Provider Test Date Status ALYSHA WESTBROOK 11/26/2023 09:27:20 Final Observation Date Value Abnormality Reference (Units ) Status BUN 11/26/2023 09:27:20 10 6-20 (mg/d L) Final Creatinine 11/26/2023 09:27:20 0.9 0.5-1.0 ( mg/dL) Final The above reference range is based on the legal sex of the patient only. Results should be interpreted together with patient's sex at , gender identity, and clinical context. Glomerular filtration rate/1 .73 sq M.predicted [Volume Rate/Area] in Serum, Plasma or Blood by Creatinine-based formula (CKD-EPI) 11/26/2023 09:27:20 74 >=60 (mL/min) Fi nal eGFR is calculated based on the legal sex of the patient, using the CKD-EPI 2020 equation Sodium 11/26/2023 09:27:20 140 135-146 (m mol/L) Final Potassium 11/26/2023 09:27:20 4.9 3.5-5.1 (m mol/L) Final Cl 11/26/2023 09:27:20 105 98-107 (mm ol/L) Final CO2 11/26/2023 09:27:20 26 22-32 (mmo l/L) Final Anion gap 11/26/2023 09:27:20 9 7-15 (mmol /L) Final Glucose 11/26/2023 09:27:20 91 70-120 (mg /dL) Final Calcium 11/26/2023 09:27:20 9.9 8.4-10.2 ( mg/dL) Final Performing Location [facility] [place] [facility] [address] [place] [address]
[2024-01-25 06:49] LABS: Hematocrit (blood only) 40.6 % (37.0-47.0); Hemoglobin 13.5 g/dl (12.0-16.0); Mean Corpuscular Hgb Conc 33.3 g/dL (32.0-36.0); Mean Corpuscular Volume 93.3 fL (80.0-100.0); Mean Platelet Volume 8.7 fL (9.4-12.4); Platelet Count 245 K/uL (130-400); RDW Coefficient of Variation 12.6 % (11.5-14.5); RDW Standard Deviation 43.5 fL (36.4-46.3); Red Blood Count 4.35 M/uL (4.20-5.40); White Blood Count 6.41 K/ul (4.8-10.8)
[2024-01-25 07:06] LABS: BUN Creatinine Ratio 16.9 (10-20); Calcium 9.1 mg/dl (8.6-10.3); Chol HDL Ratio 4.6 (0-5); Creatinine Clr Calc Pharmacy 61.6 ml/min; Est GFR (African American) 100.7 ml/min; Est GFR (Non-African American) 86.9 ml/min; Potassium 4.1 mmol/L (3.5-5.1)
[2024-01-25 07:12] LABS: Partial Thromboplastin Time 27 Seconds (21-31)
[2024-01-25 07:24] LABS: Basophils # (auto) 0.09 K/uL (0.00-0.20); Basophils % (auto) 1.4 %; Eosinophils # (auto) 0.41 K/uL (0.00-0.50); Eosinophils % (auto) 6.4 %; Immature Granulocytes # (auto) 0.01 K/uL (0.01-0.20); Immature Granulocytes % (auto) 0.2 %; Lymphocytes # (auto) 3.26 K/uL (1.20-3.40); Lymphocytes % (auto) 50.9 %; Monocytes # (auto) 0.49 K/uL (0.11-0.59); Monocytes % (auto) 7.6 %; Neutrophils # (auto) 2.15 K/uL (1.40-6.50); Neutrophils % (auto) 33.5 %
[2024-01-25 08:26] VITALS: RESP 18
[2024-01-25] MEDS: METOPROLOL TARTRATE 25 MG TAB PO SCH (08:33)
[2024-01-25] MEDS: ASPIRIN 81 MG ECTAB PO SCH (08:33)
[2024-01-25] MEDS: ENOXAPARIN INJ 40 MG/0.4 ML SYR SQ SCH (08:34)
[2024-01-25] MEDS: OXYBUTYNIN CHLORIDE XL 5 MG TABCR PO SCH (08:34)
[2024-01-25] MEDS: lisinopril 10 MG TAB PO SCH (08:34)
--- NOTE | 2024-01-25 09:53 | Cardiology Consultation ---
Date of Consultation January 25, 2024 Assessment & Plan (1) Palpitation: (2) Chest pain: (3) LBBB (left bundle branch block): (4) HTN (hypertension): (5) Dyslipidemia: (6) Family history of ischemic heart disease: Plan 69-year-old female admitted to [facility] on January 24, 2024 with atypical chest pain and paroxysmal tachypalpitations. History most suggestive of SVT. Symptoms correlating temporally to initiation of Desvenlafaxine (Pristiq) which has been very helpful in regards to patient's depression. Telemetry benign thus far. EKG with chronic left bundle branch block. Options of management discussed with patient. Plan as outlined below. Recommendations/Plan: 1. Refer for resting echocardiography 2. Refer for Lexiscan nuclear stress testing 3. Continue beta ridge therapy for heart rate and blood pressure control, switching to metoprolol succinate at 25 mg once per day on discharge. 4. Outpatient 14-day ZIO monitor if inpatient telemetry remains benign 5. Consider discontinuation of 6. Further recommendations pending evaluation by Dr. Wall and patient's ongoing hospitalization. Supervising Physician Co-Signing Physician Notes Attending attestation: Case reviewed with the advanced practitioner. I have personally performed a history and physical examination on the patient. I have reviewed the advanced practitioner's documentation on the date of service referenced in note, and I agree with, and take responsibility for the plan of care. Subjective: Patient seen prior to, during, and after Lexiscan nuclear stress test. Exam: Cardiovascular: Regular rhythm, no murmurs, no edema Data: EKG reveals left bundle branch block Lexiscan nuclear stress test negative for ischemia Impression/ Plan: Stress test negative for ischemia Question if symptoms are due to underlying arrhythmia such as paroxysmal supraventricular tachycardia. -Cautiously add metoprolol succinate to 25 mg daily in the setting of left bundle branch block -Arrange for outpatient Zio patch monitor. Will notify outpatient cardiology office and will arrange. -Patient's preference is to continue Desvenlafaxine (Pristiq) -Patient and , Jakob, agreeable to plan. [facility] the purpose of coordination of care. Darrick Wall, History of Present Illness Reason for Consultation: Chest pain Requesting Physician: Dr. Garrett Attending Physician: Dr. Petey Guajardo, DO History of Present Illness Mrs. Tory Balbuena is a 69-year-old female who is being seen at the request of [facility], evaluation of chest pain. Patient describes being diagnosed with a left bundle branch block 10 to 15 years ago while living in [place], [place]. At that time she underwent stress testing and ultimately diagnostic cardiac catheterization revealing normal coronary arteries per patient report. Patient notes moving from [place] back to [place] and being more physically active over the last 6 months than she has in years past. Over the last 6 months she has began to experience an abrupt onset of fluttering sensation in the chest with heart rates up to 175 bpm observed on her Apple watch. She notes that she begins to experience symptoms when her heart rate increases to 110 bpm. At 150 bpm she will feel a soreness in the chest and have a some discomfort down the left arm that she describes as a heaviness or numbness. Palpitations occur without rhyme or reason. She notes walking 2 miles most days without cardiopulmonary symptoms or limitation. Yesterday she presented for a wellness visit and noted the above the symptoms and was referred to the ER for further evaluation and treatment. Interestingly, the patient began Desvenlafaxine (Pristiq) approximately 6 months ago; this has been very helpful in regards to her depression EKG in the ER revealed sinus rhythm at 82 bpm with a chronic left bundle branch block. High-sensitivity troponin negative x 3 (4.7, 4.4, 4.2). Chest x-ray without active disease in the chest Blood pressure was elevated in the ER, 184/74. Patient received 2.5 mg of IV Lopressor and aspirin in the ER. Admission history and physical examination documents frequent runs of PVCs with associated tachycardia for which patient was prescribed Lopressor 12.5 mg twice per day on admission. 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 Past Medical and Surgical History Fibromyalgia Depression Generalized anxiety Hypertension Dyslipidemia Chronic left bundle branch block Irritable bowel syndrome Diverticulosis Urinary incontinence Osteoporosis Appendectomy Cholecystectomy Hysterectomy Bladder tuck Family History: Mother at 70 with leukemia. Strong paternal family history of coronary artery disease in her father and multiple siblings. Brother also with CAD. Social History: Non-smoker. Social alcohol only. No illegal drug use. Retired sql etl developer. Lives in [place] with . Three children. Allergies Allergy/AdvReac Type Severity Reaction Status Date / Time No Known Allergies Allergy Unverified 01/24/24 20:02 Home Medications Medication Instructions Recorded Confirmed Type alprazolam 0.5 mg tablet (Xanax) 0.5 mg PO BID #0 tabs 10/10/14 01/24/24 History desvenlafaxine succinate 50 mg 50 mg PO QAM 01/24/24 01/24/24 History tablet,extended release 24 hr esomeprazole magnesium 40 mg 40 mg PO HS 01/24/24 01/24/24 History capsule,delayed release estradiol 0.01% (0.1 mg/gram) 1 g vaginal 3XWK 01/24/24 01/24/24 History vaginal cream lisinopril 10 mg tablet 10 mg PO QAM 01/24/24 01/24/24 History multivitamin 1 tab PO HS 01/24/24 01/24/24 History tolterodine 4 mg capsule,extended 4 mg PO QAM 01/24/24 01/24/24 History release 24 hr Patient History Social History Smoking Status: Never smoker Hx Alcohol Use: No Hx Substance Use: No Preferred Language: Barbadian Communication Ability: Effective Bursar Required: No Beliefs That Will Affect Care: None Current Living Situation: Spouse Feels Safe at Home: Yes Assistive Devices: None Review of Systems Review of Systems: Complete Review of Systems: Constitutional: No fevers, chills, or night sweats. HEENT: Glasses. Cataracts. ? Glaucoma. No macular degeneration. No amaurosis fugax. + Chronic sinus issues. Pulmonary: No history of asthma, emphysema, COPD, or sleep apnea. No history of PE. Cardiac: See above. GI/Abd: No dysphagia. No GERD. No melana or hematochezia. No kidney problems. No liver problems. No history of pancreatic issues. Vascular: No history of carotid artery disease, AAA, or lower extremity claudication/PAD. Hematologic: No coagulation disorder, anemia, or abnormal bleeding. Musculoskeletal: Arthritis. Skin: No rash. Neurologic: No history of TIA/CVA, or seizure disorder. Female : Incontinence. Bladder surgery one year ago. Endocrine: No history of diabetes mellitus. No thyroid trouble. Complete Review of Systems is as stated above, negative, or noncontributory Physical Exam Physical Exam: General: A&Ox3. NAD. HENT: Normocephalic. Atraumatic. Eyes: PER. Conjunctiva pink, sclera clear. Neck: No carotid bruits. No JVD. Heart: RRR. + Gallop. No murmur. Lungs: Clear to auscultation. Abdomen: +BS. No organomegaly. Extremities: Varicosities. No clubbing, cyanosis, or edema. Limited neurological examination is without focal deficits. Pulses: Posterior tibial=2/4. Results & Data Vital Signs (Past 12 Hours) Vital Signs Temp Pulse Pulse Resp BP Pulse Ox O2 Del Method 01/25/24 08:25 36.5 C 72 18 133/74 99 Room Air 01/25/24 07:31 68 01/25/24 02:54 36.5 C 77 16 100/61 96 Room Air 01/24/24 23:23 72 01/24/24 23:21 Room Air 01/24/24 23:21 36.6 C 73 16 164/75 H 97 Room Air 01/24/24 22:25 75 01/24/24 22:00 73 19 125/76 95 Room Air Laboratory Results Cardiac Enzymes 01/24/24 01/24/24 01/25/24 Range/Units 14:50 18:50 05:58 AST 22 (13-39) U/L Troponin I High Sens 4.7 4.4 4.2 (0-14) pg/ml Coagulation 01/24/24 01/25/24 Range/Units 14:50 05:58 PT 10.3 (9.0-12.0) Seconds APTT 26 27 (21-31) Seconds Lipids 01/25/24 Range/Units 05:58 Triglycerides 96 (0-150) mg/dl Cholesterol 206 H (0-200) mg/dl HDL Cholesterol 45 mg/dl Cholesterol/HDL Ratio 4.6 (0-5) CBC 01/24/24 01/25/24 Range/Units 14:50 05:58 WBC 6.54 6.41 (4.8-10.8) K/ul RBC 4.79 4.35 (4.20-5.40) M/uL Hgb 14.5 13.5 (12.0-16.0) g/dl Hct 45.1 40.6 (37.0-47.0) % Plt Count 297 245 (130-400) K/uL Neut # (Auto) 2.46 2.15 (1.40-6.50) K/uL Lymph # (Auto) 3.08 3.26 (1.20-3.40) K/uL [place] # (Auto) 0.55 0.49 (0.11-0.59) K/uL Eos # (Auto) 0.34 0.41 (0.00-0.50) K/uL Baso # (Auto) 0.10 0.09 (0.00-0.20) K/uL Comprehensive Metabolic Panel 01/24/24 01/25/24 Range/Units 14:50 05:58 Sodium 140 142 (136-145) mmol/L Potassium 4.4 4.1 (3.5-5.1) mmol/L Chloride 105 109 H (98-107) mmol/L Carbon Dioxide 28 28 (21-32) mmol/L BUN 11 12 (6-23) mg/dl Creatinine 0.74 0.71 (0.6-1.2) mg/dl Glucose 87 89 (70-99(Fasting)) mg/dl Calcium 9.5 9.1 (8.6-10.3) mg/dl AST 22 (13-39) U/L ALT 17 (7-52) U/L Alkaline Phosphatase 79 (34-104) U/L Total Protein 7.1 (6.0-8.3) gm/dl Albumin 4.3 (3.4-5.0) gm/dl Intake and Output 01/24/24 01/25/24 01/25/24 22:59 06:59 14:59 Other: # Unmeasured Voids 2 Weight 62.1 kg Weight Measurement Method Built in [facility] (2) Chest pain Chest pain type: unspecified Qualified Code(s): R07.9 - Chest pain, unspe cified
--- NOTE | 2024-01-25 12:44 | Hospitalist Progress Note ---
Date of Service January 25, 2024 Assessment & Plan (1) Paroxysmal supraventricular tachycardia: Plan: Suspected (2) HTN (hypertension): (3) LBBB (left bundle branch block): (4) Family history of ischemic heart disease: (5) Dyslipidemia: (6) Depression with anxiety: Plan Patient's history is very consistent with a tachyarrhythmia, paroxysmal SVT versus atrial tachycardia. Continue to monitor on telemetry Continue metoprolol at current dosing Reviewed cardiology consultation, anticipating/planning for stress testing Transition to metoprolol succinate at discharge Reviewed adverse effects of Pristiq, tacky arrhythmias not noted under common side effects, will continue at patient's request Zio patch x 14 days upon discharge to be coordinated with cardiology Admission and Anticipated Discharge Date Admission Date: January 24, 2024 Subjective Patient's history sounds like paroxysmal's of SVT or atrial flutter. No arrhythmias on telemetry monitoring. She denies chest pain or shortness of breath this morning. Very interested in continuing her Pristiq Physical Exam Physical Exam: Constitutional: Alert HEENT: Mucous membranes moist. Lungs: Clear to auscultation, decreased, no wheezes rales or rhonchi CV: S1-S2, regular Abdomen: Soft, nontender, nondistended Extremities: No significant edema Neuro: No focal deficits Psych: Cooperative, slightly anxious Results & Data Results & Data Vital Signs (Past 12 Hours) Vital Signs Temp Pulse Pulse Resp BP Pulse Ox O2 Del Method 01/25/24 12:23 36.5 C 69 18 122/77 98 Room Air 01/25/24 08:25 36.5 C 72 18 133/74 99 Room Air 01/25/24 07:31 68 01/25/24 02:54 36.5 C 77 16 100/61 96 Room Air Diagnostic Findings Reviewed imaging, laboratory and diagnostic studies. Pertinent findings as below. CBC and BMP stable, normal range Echocardiogram shows normal ejection fraction, no significant abnormalities Telemetry monitoring sinus rhythm
[2024-01-25] MEDS: REGADENOSON 0.4 MG/5 ML SYR IV ONE (14:28)
--- NOTE | 2024-01-25 15:42 | Myocardial Perfusion Study ---
Date of Service January 25, 2024 Myocardial Perfusion Study k Myocardial Perfusion Study Report [place] Act 112: Negative Procedure: 1. Myocardial perfusion study performed in multiple views/images 2. Lexiscan pharmacologic stress ECG Indications: 1. Chest discomfort 2. Left bundle branch block Ordering provider: Lucius Dasilva PA-C Procedural details: For the stress portion of the study, Lexiscan 0.4 mg was intravenously administered followed by a saline flush. This was followed by 26.1 mCi of technetium 99m Cardiolite, injected at 13: 16 on 01/25/2024. 30 minutes following the injection, imaging of the heart was performed in multiple projections. For the rest portion of the study, 9.6 mCi technetium 99m Cardiolite was injected intravenously at 11:30 AM on 01/25/2024. 1 hour following the injection, imaging of the heart was performed in the same projections. Lexiscan stress ECG: Resting ECG demonstrated: Sinus rhythm with left bundle branch block in the 60s The stress EKG response is nondiagnostic for excluding ischemia due to the presence of the underlying left bundle branch block. Maximum heart rate: 98 bpm Maximal, age-predicted heart rate: 64% Resting blood pressure: 130/67 mmHg Maximum blood pressure: 130/67 mmHg Lowest blood pressure: 125/56 mmHg Arrhythmia: None Symptoms: No symptoms suggestive of angina were reported Findings: Rotating raw imaging demonstrated no significant lung uptake. There is no significant motion artifact. There is mild subjective diaphragmatic radiopharmaceutical uptake. Heart size appeared normal. Myocardial perfusion demonstrated a fixed septal perfusion defect consistent with underlying left bundle branch block without evidence of inducible ischemia. Abnormal septal wall motion was noted with left ventricular ejection fraction calculated to be 40% by the gated SPECT technique, full qualitatively looked like it was in the range of 50-55%. No significant transient ischemic dilation. Impression: 1. The pharmacologic myocardial perfusion imaging study is negative for inducible ischemia with a small sized fixed septal perfusion defect consistent with the patient's history of left bundle branch block. 2. Abnormal septal motion noted consistent with left bundle branch block. The left ventricular ejection fraction calculated to be 40% by the gated SPECT technique, full qualitatively looked like it was in the range of 50-55%.
--- NOTE | 2024-01-25 16:11 | Discharge Summary ---
Discharge Summary Date of Service January 25, 2024 Principal Dx & Hospital Course #1 = Principal Diagnosis (1) Paroxysmal supraventricular tachycardia: Suspected (2) HTN (hypertension): (3) LBBB (left bundle branch block): (4) Family history of ischemic heart disease: (5) Dyslipidemia: (6) Depression with anxiety: Plan Patient is 69-year-old female presented to the emergency room at the request of her PCP with complaints of palpitations and racing heart intermittently over the past few months. In the emergency room EKG showed sinus rhythm with left bundle branch block. Patient was admitted to the hospital for further monitoring. There is no significant arrhythmias on telemetry monitoring. She ruled out for acute coronary syndrome via enzymes with normal troponins. Cardiology consultation was obtained. She underwent echocardiogram which showed normal ejection fraction and wall motion consistent with a left bundle branch block. Lexiscan stress test was also coordinated for the day of discharge. Images were negative for any type of inducible ischemia there was wall motion abnormalities consistent with her left bundle branch block. Patient had been started on metoprolol here in the hospital. She was tolerating that well. Conversation for plans for discharge with cardiology included continuing her on Toprol XL 25 mg as an outpatient and following up in their office for Zio patch. These were instructions were reviewed with her and her . She be discharged home with outpatient follow-up with her PCP and cardiology. Notes For Next Care Provider Follow-up Zio patch results Medication Changes From Visit Toprol XL 25 mg started Admission HPI Per Admitting Provider Tory Balbuena is a 69y/o F with PMHx of hyperlipidemia, HTN, IBS, diverticulosis, urinary incontinence, fibromyalgia, osteoporosis, depression, LUCAS and other problems listed below who presented to the ED for evaluation secondary to chest pain. History obtained from patient and associated chart review. Patient recently established care with Dr. Quigley at [facility] in October. Patient has been experiencing feelings of her "heart racing" since September. She thought it may be due to stress from getting ready to move here from [place] and figured it would go away once she was settled. Since October, she has noticed the frequency of these "heart racing" sensations have increased to occur almost weekly and are now associated with some chest pain. She describes this chest pain as more of a tightness rather than sharp. She had an EKG done by her PCP today that showed the following: NSR, left ventricular hypertrophy with secondary QRS widening and LBBB. Patient with chronic history of LBBB. PCP ultimately recommended that the patient come to the ED for further evaluation given new finding of LVH with secondary QRS widening. Patient drove herself to the ED. She reports that she had a cardiac catheterization in the early to mid that was normal. She also mentions she had cardiac stress testing done in the past that was negative for any acute findings. EKG done in the ED showing NSR w/ HR 82bpm and LBBB. CXR negative for any active disease. Lab work rather unremarkable, troponin negative. She was loaded with aspirin 324mg in the ED. BP noted to be elevated at 184/75 at 18:33 in the ED. IV metoprolol tartrate 2.5mg was administered. Patient saturating well on RA. PRN nitroglycerin was ordered as well. Patient with frequent runs of PVCs with associated tachycardia throughout our conversation while she was at rest. Admission Exam Per Admitting Provider See H&P Discharge Exam Constitutional: Alert HEENT: Mucous membranes moist. Lungs: Clear to auscultation, decreased, no wheezes rales or rhonchi CV: S1-S2, regular Abdomen: Soft, nontender, nondistended Extremities: No significant edema Neuro: No focal deficits Psych: Cooperative, normal mood, slightly anxious Updated Medication List Medication Instructions Recorded Confirmed Type alprazolam 0.5 mg tablet (Xanax) 0.5 mg PO BID #0 tabs 10/10/01/24/24 History desvenlafaxine succinate 50 mg 50 mg PO QAM 01/24/24 01/24/24 History tablet,extended release 24 hr esomeprazole magnesium 40 mg 40 mg PO HS 01/24/24 01/24/24 History capsule,delayed release estradiol 0.01% (0.1 mg/gram) 1 g vaginal 3XWK 01/24/24 01/24/24 History vaginal cream lisinopril 10 mg tablet 10 mg PO QAM 01/24/24 01/24/24 History multivitamin 1 tab PO HS 01/24/24 01/24/24 History tolterodine 4 mg capsule,extended 4 mg PO QAM 01/24/24 01/24/24 History release 24 hr metoprolol succinate 25 mg 25 mg PO DAILY #30 tabs 01/25/24 Rx tablet,extended release 24 hr (Toprol XL) Hospital Stay Data Consultations 01/24/24 19:16 ED Decision to Admit Stat 01/24/24 23:17 Consult Cardiology Routine Diagnostic Imagining Performed Reviewed imaging, laboratory and diagnostic studies. Pertinent findings as below. Stress test negative for inducible ischemia Echocardiogram showed ejection fraction 5055%, wall motion abnormality consistent with left bundle branch block, no significant valvular dysfunction, refer you to full report for details Troponins negative x 3 sets Cholesterol 206 LDL 142 HDL 45 Pending Results Patient Have Any Pending Studies at Discharge: No Discharge Instructions Given to Patient (Per Discharging Provider) Follow-up with cardiology to get Zio patch as coordinated through their office Total Time Total Time Spent Total Time Spent (In Minutes): 39
[2024-01-25 16:30] VITALS: BP 125/72; PULSE 75; TEMP 97.9; O2SAT 97
--- OUTSIDE RECORDS SUMMARY | 2024-01-25 20:31 | External Medical Summary | Summary of Care ---
Author Name Unknown Organization [facility] Address [address] [place] [address] Phone [phone] Care Team Providers Care Fiber Optic Assembly Worker Name Role Phone Bella Quigley MD Primary Care Provider Reason for Visit * Reason Onset Date Comments Advice 01/24/2024 Encounter Details Date Type Department Care Team (Late st Contact Info) Description 01/24/2024 Telephone Family Practice [facility] [address] [place] [id number] Bella Quigley MD [address] [place] [id number] Advice Allergies No known active allergiesdocumented as of this encounter (statuses as of 01/24/2024) Medications Medication Sig Dispensed Refills Start Date [...] Administer 1 g into the vagina. Active Centrum Silver 50+Women Oral Tablet Take by mouth. Active guaiFENesin ER 600 MG Oral Tablet Extended Release 12 Hour (Mucinex) Take 1 Tablet by mouth in the morning. Active Probiotic Daily Oral Capsule Take 1 Capsule by mouth in the morning. Active documented as of this encounter (statuses as of 01/24/2024) Active Problems Problem Noted Date Diagnosed Date [...] as of this encounter (statuses as of 01/24/2024) Immunizations Name Administration Dates Next Due COVID-19 mRNA, LNP-s, No Pre serve, 2-Dose Series (Moderna) 08/17/2020 documented as of this encounter Social History Tobacco Use Types Packs/Day Years Used Date Smoking Tobacco: Never Smokeless Tobacco: Never Alcohol Use Standard Drinks/Week [...] No 11/25/2023 Does the household have a [facility] source of income? (Household - for ages [...] Female 11/25/2023 11:13 PM EDT Gender Identity Female 01/24/2024 1:00 PM EDT Sexual Orientation Straight 11/25/2023 11 :13 PM EDT Job Start Date Occupation Industry Not on file Not on file Not on file documented as of this encounter Miscellaneous Notes * Telephone Encounter - Tory Voss RN - 01/24/2024 2:03 PM EDT During pts annual wellness visit pt reported she has felt like her heart is racing on occasion. Herapple watch will show a HR of 60 and shortly after 150. It will stay for a short time and then go back to "normal". Pt reports this has been going on since September. She thought it was stress from gettingready to move here from [place] and figured it would go away once she was settled. She did not mention it at her visit to establish with Dr Quigley on 11/25. Since then she has noticed the frequency of this has increased to about weekly and has had some associated chest pain. Today she reports it feels like she pulled a muscle. EKG performed and reviewed by Dr Quigley. Based on the EKG Dr Quigley recommends pt go to the ED. Pt drove herself here and feels ok so Dr Quigley is fine with her driving herself to the ED. Report called to the charge preparation technician and EKG faxed. * Telephone Encounter - Bella Quigley MD - 01/24/2024 1:43 PM EDT Tory Voss RN reports patient noticing increasing palpitations with "pulled muscle sensation" in chest. Reports Hx bundle branch block, we have no prior records. documented in this encounter Plan of Treatment Upcoming Encounters Date Type Department Care Team (Late st Contact Info) Description 06/14/2024 12:20 PM EST Office Visit Family Practice [facility] [address] [facility] [place] [id number] Bella Quigley MD [address] [facility] [place] [id number] 06/27/2024 3:00 PM EST Imaging Radiology, [place] [id number] [facility] [place] [address] Scheduled Orders Name Type Priority Associated Diagnoses Orde r Schedule EKG EKG Routine Palpitations Expected: 01/24/2024 (Approximate), Expi res: 02/23/2025 Health Maintenance Due Date Last Done Comments Hepatitis C Screening 1973 DTaP,Tdap,and Td Vaccines (1 - Tdap) 1974 VITAMIN D LEVEL ONCE IN A LIFETIME-USE SMARTSET# 80715 1995 Cologuard 01/02/2000 Colonoscopy 01/02/2000 Colorectal Cancer Screening 01/02/2000 Fecal Occult Blood Test 01/02/2000 Sigmoidoscopy 01/02/2000 DXA Scan 2005 Zoster Vaccines (1 of 2) 2005 Pneumococcal Vaccine: 65+ Years (1 of 1 - PCV) 01/02/2020 COVID-19 Vaccine (2 - 2022-2 4 season) 2023 08/17/2020 *BISPHONATE OR OTHER ACCEPTABLE MEDICATION NEEDED FOR OSTEOPOROSIS (REFER TO SMARTSET #1146) 11/28/2023 Influenza Vaccine (FLU shot) (#1) 2024 GFR 11/25/2024 11/26/2023, 10/10/2014 Mammogram 12/26/2024 12/27/2023 Adult Wellness Visit 01/23/2025 01/24/2024 Depression Monitoring 01/23/2025 01/24/2024 , 11/26/2023 Albumin/Creatinine Ratio 11/25/2026 11/26/2023 Diabetes Screening 11/25/2026 [...] as of this encounter Visit Diagnoses Diagnosis Palpitations- Primary documented in this encounter Care Teams Fiber Optic Assembly Worker Relationship Specialty Start Date End Date Bella Quigley MD [address] [place] [id number] PCP - General Internal Medicine 12/23/23 documented as of this encounter
--- OUTSIDE RECORDS SUMMARY | 2024-01-25 20:31 | External Medical Summary | Summary of Care ---
Author Name Unknown Organization [facility] Address [address] [place] [address] Phone [phone] Care Team Providers Care Interactive Art Director Name Role Phone Bella Quigley MD Primary Care Provider Reason for Visit * Reason Onset Date Comments Adult Annual Wellness Visit, Subsequent Visit Encounter Details Date Type Department Care Team (Late st Contact Info) Description 01/24/2024 1:00 PM EDT Nurse Only Ancillary [facility] [address] [place] [address] [facility] [address] [facility] [place] [address] Adult Annual Wellness Visit, Subsequent Visit Allergies No known active allergiesdocumented as of [...] Date Smoking Tobacco: Never Smokeless Tobacco: Never Tobacco Cessation:Counseling Given: Not [...] Sign Reading Time Taken Comments Blood Pressure 124/74 01/24/2024 1:04 PM EDT Pulse 74 01/24/2024 1:04 PM EDT Temperature 37.1 C (98.8 F) 01/24/2024 1:04 PM ED T Respiratory Rate - - Oxygen Saturation - - Inhaled Oxygen Concentration - - Weight 61.1 kg (134 lb 12.8 oz) 01/24/2024 1:04 PM EDT Height 153.7 cm (5' 0.5") 01/24/2024 1:04 PM EDT Body Mass Index 25.89 01/24/2024 1:04 PM EDT documented in this encounter Patient Instructions * Patient Instructions* Tory Voss RN - 01/24/2024 12:59 PM EDT Hi Ms. Balbuena, As your primary care physician, I know that regular visits with my patients who have several chronic conditions can go a long way in helping you stay healthy. Many times, the clinic team and I are in touch with you and/or other care team members between office visits to adjust medications, discuss any changes in your health, and review our care plan to make sure it is still meeting your needs. I am dedicated to helping you take a more active role in your overall care. It is important that there are resources available to you, so I created a personalized plan of care with a Health Calendar for you, which is included on the next page of this letter. Below is a list that summarizes your electronic health record: Health Maintenance Due: Health Maintenance Due Topic Date Due Hepatitis C Screening Never done DTaP,Tdap,and Td Vaccines (1 - Tdap) Never done VITAMIN D LEVEL ONCE IN A LIFETIME-USE SMARTSET# 13422 Never done Colorectal Cancer Screening Never done DXA Scan Never done Zoster Vaccines (1 of 2) Never done Pneumococcal Vaccine: 65+ Years (1 of 1 - PCV) Never done Adult Wellness Visit Never done COVID-19 Vaccine ( - 2022-24 season) 2023 *BISPHONATE OR OTHER ACCEPTABLE MEDICATION NEEDED FOR OSTEOPOROSIS (REFER TO SMARTSET #1146) Never done Current Medication List: (as of Visit date not found (in office), Visit date not found (telemedicine) ) Current Outpatient Medications Medication Sig Dispense Refill Lisinopril 10 MG Oral Tablet (Prinivil) Take [...] 2 times a day as needed for Sleep.60 Tablet 0 Lactulose 10 GM/15ML Oral Solution (Constulose) Take 30 mL by mouth daily as needed for Constipation. 240 mL 1 Estradiol 0.1 MG/GM Vaginal Cream (Estrace) Administer 1 g into the vagina. Centrum Silver 50+Women Oral Tablet Take by mouth. guaiFENesin ER 600 MG Oral Tablet Extended Release 12 Hour (Mucinex) Take 1 Tablet by mouth in the morning. Probiotic Daily Oral Capsule Take 1 Capsule by mouth in the morning. No current facility-administered medications for this visit. Current List of Allergies: (as of Visit date not found (in office), Visit date not found (telemedicine) ) Review of patient's allergies indicates: No Known Allergies Most Recent Lab Results: Results for orders placed or performed in visit on 11/26/23 LIPID PANEL WITH DIRECT LDL IF TG IS HIGH Result Value Ref Range Triglycerides 105 <=174 mg/dL Cholesterol 240 (H) <200 mg/dL HDL Cholesterol 61 >49 mg/dL Non-HDL Cholesterol 179 (H) <=159 mg/dL LDL Cholesterol 158 (H) <=129 mg/dL BASIC METABOLIC PANEL Result Value Ref Range BUN 10 6 - 20 mg/dL Creatinine 0.9 0.5 - 1.0 mg/dL Estimated Glomerular Filtration Rate 74 >=60 mL/min Sodium 140 135 - 146 mmol/L Potassium 4.9 3.5 - 5.1 mmol/L Chloride 105 98 - 107 mmol/L CO2 26 22 - 32 mmol/L Anion Gap 9 7 - 15 mmol/L Glucose 91 70 - 120 mg/dL Calcium 9.9 8.4 - 10.2 mg/dL HEPATIC FUNCTION PANEL Result Value Ref Range Albumin 4.4 3.8 - 5.0 g/dL AST 23 10 - 35 U/L Alkaline Phosphatase 94 35 - 130 U/L ALT 21 10 - 35 U/L Bilirubin, Total 0.3 <=1.2 mg/dL Bilirubin, Direct <0.2 0.0 - 0.3 mg/dL Protein 6.8 6.0 - 8.3 g/dL ALBUMIN / CREATININE RATIO, URINE Result Value Ref Range Albumin, Random Urine <1.20 mg/dL Creatinine, Random Urine 70 mg/dL Albumin / Creatinine Ratio, Urine <17 <30 mg/g Creat Sincerely, Bella Quigley MD 01/24/2024 [facility] Health Calendar (as of Visit date not found (in office), Visit date not found (telemedicine) ) Care needs Care needs Last completed Due next Hepatitis C screening --- Never done Diphtheria, tetanus & pertussis vaccines (1 - Tdap) --- Never done Vitamin D test --- Never done Colorectal cancer screening (colonoscopy 10 years, sigmoidoscopy 5 years, Cologuard 3 years, stool sample 1 year) --- Never done Bone Density --- Never done Zoster (Shingles) Vaccine (1 of 2) --- Never done Pneumonia vaccine (1 of 1 - PCV) --- Never done Adult Wellness Visit --- Never done COVID-19 Vaccine (2 - 2022-24 season) 2020 01/29/2023 Discuss medication for ostoporosis --- Never done Flu vaccine (recommended) (1) --- 01/30/2024 Kidney Function Test 11/26/2023 11/25/2024 Mammogram 12/27/2023 12/26/2024 Urine albumin/creatinine test 11/26/2023 11/25/2026 Diabetes Screening 11/26/2023 11/25/2026 Lipid (cholesterol) disorder screening 11/26/2023 11/25/2028 As you look over the recommended services, be sure to check with your insurance company to determine what's covered. Contrib is a great tool that helps you review your medical record online, including test results, doctor notes and your health summary. You can also schedule appointments with me and other members of your care team, request prescription refills and ask for advice related to your medical conditions at [email or web address]. Patient Instructions - Fall Prevention (This education is for all patients over 65 regardless of symptoms) Remember to take your current medications as prescribed. In order to prevent falls, you are encouraged to: Exercise Utilize assistive/adaptive devices Avoid multifocal lenses when walking Avoid hazards in home Maintain a regular toileting schedule Any questions please contact our office. Preventing Falls in the Home (This education is for all patients over 65 regardless of symptoms) As you get older, falls are more likely. Thats because your reaction time slows. Your muscles and joints may also get stiffer, making them less flexible. Illness, medications, and vision changes can also affect your balance. A fall could leave you unable to live on your own. To make your home safer, follow these tips: Floors Put nonskid pads under area rugs Remove throw rugs Replace worn floor coverings Tack carpets firmly to each step on carpeted stairs. Put nonskid strips on the edges of uncarpeted stairs Keep floors and stairs free of clutter and cords Arrange furniture so there are clear pathways Clean up any spills right away Bathrooms Install grab bars in the tub or shower Apply nonskid strips or put a nonskid rubber mat in the tub or shower Sit on a bath chair to bathe Use bathmats with nonskid backing Lighting Keep a flashlight in each room Put a nightlight along the pathway between the bedroom and the bathroom [employer] Patient Education Copyright 2008 - 2010 [employer] except where otherwise noted Preventing Falls: Exercises to Improve Balance, Flexibility, Strength, and Staying Power (This education is for all patients over 65 regardless of symptoms) Certain types of exercises may help make you less likely to fall. Try the ones below. Or do other exercises that your healthcare provider suggests. Depending on your health, you may need to start slowly. Dont let that stop you. Even small amounts of exercise can help you. Be sure to talk to yourhealthcare provider before starting any exercise program. Improve Balance Many types of exercise can help improve balance. Isa chi and yoga are good examples. Heres another one to try. You can do it anytime and almost anywhere. Stand next to a counter or solid support. Push yourself up onto your tiptoes. Hold for 5 seconds. If you start to lose your balance, hold on to the counter. Rest and repeat 5 times. Work up to holding for 20 to 30 seconds, if you can. Increase Flexibility Being more flexible makes it easier for you to move around safely. Try exercises like the seated hamstring stretch. Sit in a chair and put one foot on a stool. Straighten your leg and reach with both hands down either side of your leg. Reach as far down your leg as you can. Hold for about 20 seconds. Go back to the starting position. Then repeat 5 times. Switch legs. Build Strength Resistance exercises help build strength. You can do them without equipment. Or you can use weights, elastic bands, or special machines. One such exercise is called the biceps curl. You can hold a 1 pound weight or even a can of soup. Do this exercise at least 3 times a week. Strive for everyday. Sit up straight in a chair. Keep your elbow close to your body and your wrist straight. Bend your arm, moving your hand up to your shoulder. Then slowly lower your arm. Repeat 5 times. Switch to the other arm. Build Your Staying Power Aerobic exercises make your heart and lungs stronger so you can keep moving longer. Walking and swimming are two of the best types of exercises you can do. Using a stationary bike is great, too. Find an aerobic exercise that you enjoy. Start slowly and build up. Even 5 minutes is helpful. Aimfor a goal of 30 minutes, at least 3 times a week. You dont have to do 30 minutes in one session. Break it up and walk a little throughout the day. More Helpful Tips Start easy. Slowly work up to doing more. Talk with your healthcare provider about the best exercises for you. Call senior centers or health clubs about exercise programs. If needed, have a family member watch you walk every so often to check your stability. Exercise with a friend. Choose an activity you both enjoy. Try exercises that you can do anytime, anywhere. Here are two examples. Have someone with you when you first try these: Practice walking by placing one foot right in front of the other. Stand up and sit down 10 times. Repeat this throughout the day. [employer] Patient Education Copyright 2009 - 2010 [employer] except where otherwise noted. Preventing Falls: Moving Safely Using a Cane or Walker (This education is for all patients over 65 regardless of symptoms) Keep the cane away from your feet so you dont trip. A walking aid, such as a cane or walker, can help you stay more independent and avoid falls. Remember to keep your walking aid within easy reach when youre in a chair or in bed. And learn how to use it safely so you dont injure yourself. Using a Cane If you have a stronger side, hold the cane on that side. Get your balance. Move the cane and your weaker leg forward. Support your weight on both the cane and your weaker side. Step with your stronger leg. Start again from step 1. If youre using a folding walker, be sure you know how to lock it open. Check that its locked open before each use. Using a Walker Roll the walker (or lift it, if youre using one without wheels) forward about 12 inches. Step forward with your weaker leg first. Use the walker to help keep your balance. Bring your other foot forward to the center of the walker. Start again from step 1. Helpful Tips Check with your healthcare provider about the right walking aid to use. Ask about a walker with a seat attached. Check the tips of your cane or walker to make sure they have nonskid covers. Move slowly from room to room. Dont cristobal. Sit down to get dressed. Use a aleksandra pack or backpack to keep your hands free. Get help for jobs that mean climbing, even on a stepstool. [employer] Patient Education Copyright 2008 - 2010 [employer] except where otherwise noted. Treating Urinary Incontinence in Men (This education is for all patients over 65 regardless of symptoms) You can't always control the release of urine. You may leak urine. Or you may not be able to hold your urine until you can get to a bathroom. This is called urinary incontinence. The problem can be managed. Talk to your doctor about your treatment options. Taking Medications Prescription medications may help you. They may: Help the sphincter to work better. (This is the muscle that closes to keep urine from leaking out of the bladder.) Help stop the bladder from nikhil too often to push urine out. Help the bladder muscles contract with more force. Help relax the sphincter muscle and allow urine to flow more freely. Making Changes to Your Routine Certain changes in your daily routine may help. These include: Avoiding caffeine and alcohol. Using timed voiding. This is following a schedule for drinking fluids and urinating. Doing Kegel exercises daily. These exercises involve tightening the muscles in your sphincter and around your bladder to help strengthen them. Your doctor can explain how to do them. Using a Catheter A catheter is a narrow tube that is inserted through the urethra into the bladder. It drains urine.A condom catheter covers the penis. It channels urine into a collection bag. It is worn most of thetime. Intermittent catheterization means inserting a catheter to drain the bladder, then removing it. This is done on a regular schedule. Having Surgery If other options don't work, surgery may be recommended. If surgery is an option, your healthcare provider can discuss it with you and explain its risks and benefits. Healing After Prostate Surgery Surgery on the prostate gland can cause incontinence. Most often, the incontinence is only for a short time. It clears up when healing is complete. Very rarely, prostate surgery can result in permanent incontinence. Urinary Incontinence Plan of Care Documentation: (This education is for all patients over 65 regardless of symptoms) Current medications reconciled. Patient encouraged to: Practice kegal exercises Provide education materials Use the restroom every 2 hours throughout the day Limit caffeine, alcohol, spicy foods and acidic foods Keep a bladder diary Limit fluid intake 3-4 hours before bed Lose weight Prevent constipation Take fluid pills at a time when you can get to the bathroom quickly Control sugar better if diabetic Limit fluid intake to 60 oz. per day Wear support stockings (TEDs)if you have edema oTry Voss RN 01/24/2024 Kegel Exercises Kegel exercises dont require special clothing or equipment. Theyre easy to learn and simple to do. And if you do them right, no one can tell youre doing them, so they can be done almost anywhere. Your doctor, nurse, or physical therapist can answer any questions you have and help you get started. A Weak Pelvic Floor The pelvic floor muscles may weaken due to aging, and vaginal childbirth, injury, surgery, chronic cough, or lack of exercise. If the pelvic floor is weak, your bladder and other pelvic organs may sag out of place. The urethra may also open too easily and allow urine to leak out. Kegel exercises can help you strengthen your pelvic floor muscles so they can better support the pelvic organs and control urine flow. How Kegel Exercises Are Done Try each of the Kegel exercises described below. When youre doing them, try not to move your leg, buttock, or stomach muscles. While youre urinating, try to stop the flow of urine. Start and stop it as often as you can. Contract as if you were stopping your urine stream, but do it when youre not urinating. Tighten your rectum as if trying not to pass gas. Contract your anus, but dont move your buttocks. Helpful Hints Do your Kegels as often as you can. The more you do them, the faster youll feel the results. Pick an activity you do often as a reminder. For instance, do your Kegels every time you sit down. Tighten your pelvic floor before you sneeze, get up from a chair, cough, laugh, or lift. This protects your pelvic floor from injury and can help prevent urine leakage. Try to hold each Kegel for a slow count to five. You probably wont be able to hold them for thatlong at first, but keep practicing. It will get easier as your pelvic floor gets stronger. Eventually, special weights that you place in your vagina may be recommended to help make your Kegels even more effective. [employer] Patient Education Copyright 2008 - 2010 [employer] except where otherwise noted. Here are some helpful tips for your urinary incontinence: (This education is for all patients over 65 regardless of symptoms) Practice Kegel exercises Use the restroom every 2 hours throughout the day Limit caffeine, alcohol, spicy foods, and acidic foods Keep a bladder diary Limit fluid intake 3-4 hours before bed Lose weight Prevent constipation Take fluid pills at a time when can get to the bathroom quickly Control sugar better if diabetic Limit fluid intake to 60 oz. per day Any questions, please feel free to contact our office. documented in this encounter Progress Notes * Tory Voss RN - 01/24/2024 12:59 PM EDT Adult Annual Wellness Visit: Tory Balbuena is a 69 year old adult who presents for an Adult Annual Wellness Visit. Depression Screening: Did the patient complete the screening questionnaire for Depression? Yes Is the patient's total score for Depression 15 or greater? No, no further intervention needed, unless requested by patient. Did the patient answer positively to the suicide question? No, no further intervention needed, unless requested by patient. In general, compared to other people your age, what would you say that your health is? Very Good Ht Readings from Last 1 Encounters: 01/24/24 1.537 m (5' 0.5") Wt Readings from Last 1 Encounters: 01/24/24 61.1 kg (134 lb 12.8 oz) Body Mass Index: BMI Less than 30 Body mass index is 25.89 kg/m. BP Readings from Last 1 Encounters: 01/24/24 124/74 Medical/Surgical/Family History Reviewed: Yes Past Medical History: Diagnosis Date Diverticulosis of colon Fibromyalgia LUCAS (generalized anxiety disorder) HTN, goal to be determined Hyperlipidemia Insomnia Irritable bowel syndrome Left bundle branch block Major depressive disorder Mixed stress and urge urinary incontinence Osteoporosis Past Surgical History: Procedure Laterality Date NV DELIVERY ONLY 1984 NV DELIVERY ONLY 1992 NV CHOLECYSTECTOMY 1979 NV TOTAL ABDOMINAL HYSTERECT W/WO RMVL TUBE OVARY 1995 ovaries as well. for fibroids. cervix remains. REPAIR BLADDER DEFECT 03/2023 TOTAL ABD HYSTERECTOMY W/WO REMOVAL OF TUBE(S) Family History Problem Relation Name Age of Onset Leukemia Mother 70 myoblastic Depression Mother Lung Disorder Mother Heart attack Father 40 Stroke Father 70 Stroke Brother 65 Heart attack Uncle (Paternal) all 7 uncles Depression Daughter Breast Cancer No significant family history Colon cancer No significant family history Has patient ever had cancer? No Social History Tobacco Use Smoking status: Never Smokeless tobacco: Never Substance Use Topics Alcohol use: Not Currently Vaping/E-Cigarette Use Vaping/E-Cigarette Use Never User Vaping/E-Cigarette Substances Vaping/E-Cigarette Devices Tobacco/Alcohol screening completed today? Yes Hospital Care: Admissions (within the last year): Not Applicable ER within 30 days: No Does the patient have an Advance Directives/Living Will? Yes Last Physical Exam: Last physical exam: 10/2023 Does patient see primary provider regularly? Yes Does patient see other providers? Yes, Specialist Patient Care Team updated? Yes Review of patient's allergies indicates: No Known Allergies Immunization History Administered Date(s) Administered COVID-19 mRNA, LNP-s, No Preserve, 2-Dose Series (Moderna) 08/17/2020 Current Outpatient Medications Medication Sig Dispense Refill Lisinopril 10 MG Oral Tablet (Prinivil) Take [...] (Estrace) Administer 1 g into the vagina. Centrum Silver 50+Women Oral Tablet Take by mouth. guaiFENesin ER 600 MG Oral Tablet Extended Release 12 Hour (Mucinex) Take 1 Tablet by mouth in the morning. Probiotic Daily Oral Capsule Take 1 Capsule by mouth in the morning. No current facility-administered medications for this visit. Patient Active Problem List Diagnosis Fibromyalgia Hypertension Hyperlipidemia Irritable bowel syndrome Major depressive disorder LUCAS (generalized anxiety disorder) S/P total abdominal hysterectomy Osteoporosis Urge incontinence Mixed incontinence Insomnia Diverticulosis of colon Acute sinusitis, unspecified Medication Compliance: Patient is able to obtain all of her medications? Yes Patient takes medications as prescribed? Yes Patient manages own medications: Yes Patient uses a pill box? No Dental Exam: No Eye Screening: Yes: Every year Are you having trouble with hearing? No Do you use an assistive device to help your hearing? Yes Exercise Screening: daily excercise Nutrition Assessment: Eats a balanced diet Pain Screening: Are you having any pain? Yes. Pain Scale: 3 out of 10; pt has chest pressure today. See separate TE Sleep Screening Tool 'STOP': Do you snore? Yes Do you feel fatigued during the day? No Do you wake up feeling like you haven't slept? No Have you been told you stop breathing at night? No Do you gasp for air or choke while sleeping? No Have you been told you have Sleep Apnea? No Do you have high blood pressure or are on medication(s) to control high blood pressure? No SCORE: If you check YES to two or more questions, make a referral for Obstructive Sleep Apnea Patient and Caregiver Support System: Patient lives with a spouse Means of Transportation: Drives. Not a concern. Patient lives in Two Story - How many stairs: 10 steps to the 2nd floor, basement and attic. 2nd floor and basement have a railing, steps to the attic do not Community Resources: Not Applicable Functional Status and ADL Skills: Has patient ever had an amputation? No Functional Assessment: 100- Normal, no complaints, no evidence of disease Ambulation: Patient ambulates without assistive device. Independent Dressing: Gets clothes and dresses without any assistance: Independent Able to move freely in chair or bed including turning over: Independent Repositioning (bed or chair): Not applicable Transfers: Independent Toileting: Goes to bathroom, uses toilet, arranges clothes and returns without any assistance: Independent Toileting: continent of bladder and continent of bowel Feeding: Self Bathing: Self; tub/shower with a grab bar Requires none assistance with ADLs. Instrumental ADL's: Shopping: Independent Housekeeping: Independent Handling Finances: Independent DME Vendor Name: Not Applicable Fall Risk Assessment: Can the patient demonstrate that she can stand from a sitting position? Yes Has the patient had a fall within the last 6 months? No Does the patient have a problem with her gait or balance? No Does the patient take 4 or more prescription medicines? Yes Does the patient use sedatives or narcotics? Yes Fall Risk Factors Present: Uses more than 4 medications Uses sedatives or narcotics Older than age 70 Eel-Eb-vem-Go Test: Time began at 1300. Patient stood from sitting position and walked approximately 10 feet, returned and sat down. Total time for amm-yl-gya-go test was 10 seconds. Tat-Jx-ffh-Go Test completed? Yes Gender Specific Preventative Plan: Health Maintenance Topic Date Due Hepatitis C Screening Never done DTaP,Tdap,and Td Vaccines (1 - Tdap) Never done VITAMIN D LEVEL ONCE IN A LIFETIME-USE SMARTSET# 21872 Never done Colorectal Cancer Screening Never done DXA Scan Never done Zoster Vaccines (1 of 2) Never done Pneumococcal Vaccine: 65+ Years (1 of 1 - PCV) Never done COVID-19 Vaccine (2 - 2022- season) 2023 *BISPHONATE OR OTHER ACCEPTABLE MEDICATION NEEDED FOR OSTEOPOROSIS (REFER TO SMARTSET #5472) Never done Influenza Vaccine (FLU shot) (1) 01/30/2024 GFR 11/25/2024 Mammogram 12/26/2024 Depression Monitoring 01/23/2025 Adult Wellness Visit 01/23/2025 Albumin/Creatinine Ratio 11/25/2026 Diabetes Screening 11/25/2026 Lipid Panel 11/25/2028 Hepatitis B Vaccine Aged Out MENINGOCOCCAL (MENACTRA/MENVEO) Aged Out HPV (Gardasil) Vaccine Aged Out Follow Up/ Referrals/Handouts: No further action needed Routine general medical examination at a health care facility (Primary) Risk and functional assessment AWV completed today Fibromyalgia - Med reconciliation completed and compliance discussed. - pt to continue present medications. LUCAS (generalized anxiety disorder) - Med reconciliation completed and compliance discussed. - pt to continue present medications. Hyperlipidemia -continue following with pcp Lipid Panel Results: Results for orders placed or performed in visit on 11/26/23 LIPID PANEL WITH DIRECT LDL IF TG IS HIGH Result Value Ref Range Triglycerides 105 <=174 mg/dL Cholesterol 240 (H) <200 mg/dL HDL Cholesterol 61 >49 mg/dL Non-HDL Cholesterol 179 (H) <=159 mg/dL LDL Cholesterol 158 (H) <=129 mg/dL Hypertension -continue following with pcp BP Readings from Last 3 Encounters: 01/24/24 124/74 11/26/23 118/60 Major depressive disorder - Med reconciliation completed and compliance discussed. - pt to continue present medications. Osteoporosis -keep upcoming DXA appt Urge incontinence - Med reconciliation completed and compliance discussed. - pt to continue present medications. Follow Up: Return in 1 year (on 01/23/2025) for 12 month Subsequent Adult Wellness Visit. | For: 12 month Subsequent Adult Wellness Visit | Check-out note: 12 month Subsequent Adult Wellness Visit Would patient like to schedule next AWV visit? Yes Tory Voss RN AD8 Dementia Screening Interview Person answering questions: patient Remember, "Yes, a change" indicates that there has been a change in the last several years caused by cognitive (thinking and memory) problems 1. Problems with judgement (eg: problems making decisions, bad financial decisions, problems with thinking). No (0) 2. Less interest in hobbies/activities. No (0) 3. Repeats the same things over and over (questions, stories, or statements). No (0) 4. Trouble learning how to use a tool, appliance, or gadget (eg: VCR, computer, microwave, remote control). No (0) 5. Forgets correct month or year. No (0) 6. Trouble handling complicated financial affairs (eg: balancing checkbook, income taxes, paying bills). No (0) 7. Trouble remembering appointments. No (0) 8. Daily problems with thinking and/or memory. No (0) TOTAL AD8: 0 - AD8 Dementia Screening Score The final score is a sum of the number items marked "Yes, A Change". 0 - 1: Normal cognition; 2 or greater: Cognitive impairments is likely to be present - further testing required Urinary Incontinence Plan of Care Documentation: (This education is for all patients over 65 regardless of symptoms) Current medications reconciled. Patient encouraged to: Practice kegal exercises Provide education materials Use the restroom every 2 hours throughout the day Limit caffeine, alcohol, spicy foods and acidic foods Keep a bladder diary Limit fluid intake 3-4 hours before bed Lose weight Prevent constipation Take fluid pills at a time when you can get to the bathroom quickly Control sugar better if diabetic Limit fluid intake to 60 oz. per day Wear support stockings (TEDs)if you have edema Tory Voss RN 01/24/2024 documented in this encounter Miscellaneous Notes * Pt Handout (on AVS) - Tory Voss RN - 01/24/2024 1:26 PM EDT [address]78 Preventing Falls: How to Prepare and What to Do Falling is not something you want to think about. But it can make a big difference to plan ahead. If you're prepared, you'll know how to get help. And you'll be less likely to panic if you fall. Thismeans you'll be able to do what's needed to get help right away. How to prepare Have someone check on you daily, either in person or by phone. Keep a list of emergency numbers near the phone. Always have a way to call for help. Keep a cell phone with you at all times. Or talk with your healthcare provider about how to set up a home monitoring service. This involves wearing a small device around your neck or wrist. If you fall, you can press the button on the device. This alerts emergency responders. Talk with your healthcare provider about an exercise program that's right for you. Regular exercise may reduce the risk of falling and the risk for injury related to a fall. Have good lighting in your home. Don't use throw rugs, because they can raise your risk of tripping and falling. Add grab bars in the bathroom to help reduce the risk of falling. Small changes canmake your home safer. Talk with your healthcare provider about making your home safer. What to do if you fall Above all, try to stay calm: If you start to fall, try to relax your body. This will reduce the impact of the fall. After you fall, press your monitor button, or use your phone to call for help. Don't cristobal to get up. First, make sure you're not hurt. Roll onto your side, then crawl to a chair. Pull yourself up onto the chair slowly. Get checked if you struck your head, lost consciousness, were confused afterward, or have any other concerns for injury. Tell your healthcare provider that you fell. They can check you for injuries as needed, try to determine what made you fall, and help prevent you from falling again. A note to family and friends If you're with a loved one when they start to fall, don't try to stop the fall. Ease the person to the floor carefully, so neither of you gets hurt. Don't leave the person alone. And don't try to move them, especially if they may have hurt their head or neck. Check for injuries. If help is needed right away, call 911. Last Reviewed Date: 04/30/202219991251-2925 [employer]. All rights reserved. This information is not intended as a substitute for professional medical care. Always follow your healthcare professional's instructions. * Pt Handout (on AVS) - Tory Voss RN - 01/24/2024 1:26 PM EDT Images from the original note were not included. 50650 Exercises to Prevent Falls Certain types of exercises may help make you less likely to fall. Try the ones below or do other exercises that your healthcare provider suggests. Depending on your health, you may need to start slowly. Don't let that stop you. Even small amountsof exercise can help you. Talk with your healthcare provider before starting any exercise program. Improve balance Many types of exercise can help improve balance. Isa chi and yoga are good examples. Here's anotherone to try. You can do it anytime and almost anywhere. Stand next to a counter or solid support. Push yourself up onto your tiptoes. Hold for 5 seconds. If you start to lose your balance, hold on to the counter. Rest and repeat 5 times. Work up to holding for 20 to 30 seconds, if you can. Increase flexibility Being more flexible makes it easier for you to move around safely. Try exercises like the seatedhamstring stretch. o Sit in a chair and put one foot on a stool. o Straighten your leg and reach with both hands down either side of your leg. Reach as far down your leg as you can. o Hold for about 20 seconds. o Go back to the starting position. Then repeat 5 times. Switch legs. o o Build strength o Resistance exercises help build strength. You can do them without equipment. Or you can use weights, elastic bands, or special machines. One such exercise is called the biceps curl. You can hold a 1-pound weight or even a can of soup. Do this exercise at least 3 times a week. Strive for every day. Sit up straight in a chair. Keep your elbow close to your body and your wrist straight. Bend your arm, moving your hand up to your shoulder. Then slowly lower your arm. Repeat 5 times. Switch to the other arm. Build your staying power Aerobic exercises make your heart and lungs stronger so you can keep moving longer. Walking and swimming are 2 of the best types of exercises you can do. Using a stationary bike is great, too. Find an aerobic exercise that you enjoy. Start slowly and build up. Even 5 minutes is helpful. Aim for a goal of 30 minutes, at least 3 times a week. You don't have to do 30 minutes in 1 session. Break it up and walk a little throughout the day. Starting out safely and slowly Start easy. Slowly work up to doing more. Talk with your healthcare provider about the best exercises for you. Call senior centers or health clubs about exercise programs. If needed, have a family member watch you walk every so often to check your stability. Exercise with a friend. Choose an activity you both enjoy. Be sure to gently warm up and cool down. Drink fluids, such as water, to stay hydrated. If your provider recommended that you limit fluids, ask them how much is OK to drink while exercising. Consider isa chi or yoga to strengthen your balance. Try exercises that you can do anytime, anywhere. Here are 2 examples. Have someone with you whenyou first try these: o Practice walking by placing one foot right in front of the other. o Stand up and sit down 10 times. Repeat this throughout the day. Last Reviewed Date: 03/31/202219996089-7790 [employer]. All rights reserved. This information is not intended as a substitute for professional medical care. Always follow your healthcare professional's instructions. documented in this encounter Plan of Treatment Upcoming Encounters Date Type Department Care Team (Late st Contact Info) Description 06/14/2024 12:20 PM EST Office Visit Family Practice [facility] [address] [facility] [place] [address] Bella Quigley MD [address] [facility] [place] [address] 06/27/2024 3:00 PM EST Imaging Radiology, [facility] [address] [place] [address] Health Maintenance Due Date Last Done Comments Hepatitis C Screening 1973 DTaP,Tdap,and Td Vaccines (1 - Tdap) 1974 VITAMIN D LEVEL ONCE IN A LIFETIME-USE SMARTSET# [id number] 1995 Cologuard 01/02/2000 Colonoscopy 01/02/2000 Colorectal Cancer [...] as of this encounter Visit Diagnoses Diagnosis Routine general medical examination at a health care facility- Primary Fibromyalgia Mylagia and myositis, unspecified LUCAS (generalized anxiety disorder) Generalized anxiety disorder Hyperlipidemia Other and unspecified hyperlipidemia Hypertension Unspecified essential hypertension Major depressive disorder Major depressive disorder, single episode, unspecified Osteoporosis Osteoporosis, unspecified Urge incontinence Risk and functional assessment Screening for unspecified condition documented in this encounter Care Teams Interactive Art Director Relationship Specialty Start Date End Date Bella Quigley MD [address] [facility] [place] [address] PCP - General Internal Medicine 12/23/23 documented as of this encounter
--- OUTSIDE RECORDS SUMMARY | 2024-01-25 20:31 | External Medical Summary | Summary of Care ---
Author Name Unknown Organization [facility] Address [address] [place] [address] Phone [phone] Care Team Providers Care V Groove Cutter Name Role Phone Bella Quigley MD Primary Care Provider Reason for Visit * Reason Onset Date Comments MyCode Nonconsent - Not interested at this time 01/24/2024 Encounter Details Date Type Department Care Team (Late st Contact Info) Description 01/24/2024 Orders Only Outcomes Research Department [address], [place] [id number] Estela Denney CHRA MyCode Nonconsent Documentation Allergies No known active allergiesdocumented as of [...] as of this encounter Progress Notes * Estela Denney CHRA - 01/24/2024 1:19 PM EDT [place] Nonconsent Documentation Tory Balbuena was approached in the clinic regarding participation in the MyCode Project and did not consent. documented in this encounter Plan of Treatment Upcoming Encounters Date Type Department Care Team (Late st Contact Info) Description 06/14/2024 12:20 PM EST Office Visit Family Practice [facility] [address] [place] [address] Bella Quigley MD [address] [place] [address] 06/27/2024 3:00 PM EST Imaging Radiology, [place] [address] [facility] [place] [address] Health Maintenance Due Date Last Done Comments Hepatitis C Screening 1973 DTaP,Tdap,and Td Vaccines (1 - Tdap) 1974 VITAMIN D LEVEL ONCE IN A LIFETIME-USE SMARTSET# [id number] 1995 Cologuard 01/02/2000 Colonoscopy 01/02/2000 Colorectal Cancer [...] filedocumented as of this encounter Care Teams V Groove Cutter Relationship Specialty Start Date End Date Bella Quigley MD [address] [place] [address] PCP - General Internal Medicine 12/23/23 documented as of this encounter
--- OUTSIDE RECORDS SUMMARY | 2024-01-25 20:31 | External Medical Summary | Summary of Care ---
Author Name Unknown Organization [facility] Address [address] [facility] [place] [address] Phone [phone] Care Team Providers Care Tea Tree Farm Worker Name Role Phone Bella Quigley MD Primary Care Provider Reason for Visit * Reason Onset Date Comments Advice 01/24/2024 Encounter Details Date Type Department Care Team (Late st Contact Info) Description 01/24/2024 Telephone Family Practice [facility] [address] [place] [address] Bella Quigley MD [address] [place] [address] Advice Allergies No known active allergiesdocumented as [...] No 11/25/2023 Does the household have a [facility] services[facility] source of income? (Household - for ages [...] stress from getting[place] here from [place] and figured it would go away once [...] the ED. Report called to the charge entry and EKG faxed. * Telephone Encounter - [...] 12:20 PM EST Office Visit Family Practice [facility] [address] [facility] [place] [address] Bella Quigley MD [address] [facility] [place] [address] 06/27/2024 3:00 PM EST Imaging Radiology, [place] [address] [facility] [place] [address] Scheduled Orders Name Type Priority Associated Diagnoses Orde r Schedule EKG EKG Routine Palpitations Expected: 01/24/2024 (Approximate), Expi res: 02/23/2025 Health Maintenance Due Date Last Done Comments Hepatitis C Screening 1973 DTaP,Tdap,and Td Vaccines (1 - Tdap) 1974 VITAMIN D LEVEL ONCE IN A LIFETIME-USE SMARTSET# [id number] 1995 Cologuard 01/02/2000 Colonoscopy 01/02/2000 Colorectal Cancer [...] Primary documented in this encounter Care Teams Tea Tree Farm Worker Relationship Specialty Start Date End Date Bella Quigley MD [address] [place] [address] PCP - General Internal Medicine 12/23/23 documented as of this encounter
--- NOTE | 2024-01-26 06:01 | Electrocardiogram Report ---
Test Reason : Blood Pressure : */* mmHG Vent. Rate : 82 BPM Atrial Rate : 82 BPM P-R Int : 146 ms QRS Dur : 130 ms QT Int : 386 ms P-R-T Axes : 36 0 87 degrees QTcB Int : 450 ms Normal sinus rhythm Left bundle branch block Abnormal ECG When compared with ECG of 10-Oct-2014 14:21, No significant change was found Confirmed by Adria Cloud ([id number]) on 01/26/2024 6:00:31 AM Referred By: Confirmed By: Adria Cloud
--- NOTE | 2024-01-27 05:39 | Electrocardiogram Report ---
Test Reason : Blood Pressure : */* mmHG Vent. Rate : 66 BPM Atrial Rate : 66 BPM P-R Int : 156 ms QRS Dur : 136 ms QT Int : 466 ms P-R-T Axes : 48 14 38 degrees QTcB Int : 488 ms Normal sinus rhythm Left bundle branch block Abnormal ECG When compared with ECG of 24-Jan-2024 14:37, No significant change Confirmed by Adria Cloud ([id number]) on 01/27/2024 5:38:39 AM Referred By: Bella Quigley Confirmed By: Adria Cloud
== END 2024-01-25 16:53 | disposition home or self-care (01) ==
LOC: ED 14:24 → 4W 14:24

== ENCOUNTER 2025-02-27 08:36 | Inpatient (IN) ==
--- NOTE | 2025-02-27 09:18 | XRay Report ---
XR chest 1V portable CLINICAL HISTORY: Sepsis COMPARISON STUDY: 01/24/2024 FINDINGS: There is a likely small hiatal hernia. There is mild cardiomegaly with mild pulmonary vascu lar congestion. No consolidation or pleural effusion. No pneumothorax. IMPRESSION: Mild CHF. ACT 112: Negative or not required by law. Electronically signed by: Fausto Painting M.D. 02/27/2025 9:17 AM
[2025-02-27 09:24] LABS: Hematocrit (blood only) 43.3 % (37.0-47.0); Hemoglobin 14.5 g/dl (12.0-16.0); Immature Granulocytes # (auto) 0.08 K/uL (0.01-0.20); Immature Granulocytes % (auto) 0.4 %; Mean Corpuscular Hemoglobin 30.3 pg (25.0-34.0); Mean Corpuscular Volume 90.4 fL (80.0-100.0); Platelet Count 282 K/uL (130-400); RDW Standard Deviation 44.2 fL (36.4-46.3); Red Blood Count 4.79 M/uL (4.20-5.40); White Blood Count 21.04 K/ul (4.8-10.8)
--- NOTE | 2025-02-27 09:42 | Emergency Department Note ---
Impression & Plan Proctocolitis, Elevated troponin, MARCY (acute kidney injury) ED Provider Note NAME: RUDY ARANDA AGE: 70 SEX: F : 1955 ARRIVES VIA: Walk-In INFORMANT: Patient, ED PROVIDER(S): Dawna Davis MD CHIEF COMPLAINT: Bloody diarrhea HPI: This is a 70-year-old female presenting for bloody diarrhea. Patient states that she began having nausea vomiting yesterday. This progressed to diarrhea. Today nausea vomitings improved but she has diarrhea that is bloody. This is going on every 30 minutes. She reports history of IBS. Short history of SVT. No chest pain, shortness of breath. She reports feeling weak and tired. ROS: See above HPI for pertinent positives & negatives. A total of 10 systems reviewed and were otherwise negative. PAST MEDICAL HISTORY: See Below PAST SURGICAL HISTORY: See Below FAMILY HISTORY: See Below SOCIAL HISTORY: See Below HOME MEDICATIONS: See Below ALLERGIES: See Below VITALS: See Below PHYSICAL EXAMINATION: General: resting comfortably in no acute distress Head: Normocephalic and atraumatic Eyes: Normal inspection, extraocular muscles intact Ear, nose, throat: Normal external exam Neck: Normal range of motion Respiratory: lungs clear to auscultation bilaterally Cardiovascular: Regular rate/rhythm, no murmur GI: soft, nontender, no guarding or rebound Extremities: nontender, moves all extremities Neuro: The patient awake and alert, appropriately conversive, no focal deficits, symmetric faces Skin: Warm, dry, and intact MEDICAL DECISION MAKING: This is a 70-year-old female presenting for bloody diarrhea. With episode of bloody diarrhea, will check for hemorrhagic diarrhea versus GI bleed. Will do screening CT imaging, blood work as well as stool studies. - Stool studies currently negative -Blood work reveals leukocytosis of 21. Otherwise creatinine 1.24, slightly elevated. Patient troponin is increased due to unknown etiology, suspect demand ischemia. Patient's troponin is initially 70 uptrending to 100+ -CT imaging reveals proctocolitis. -Chest Xray independently interpreted by me showing no pneumothorax, focal opacity, or pleural effusions. -Overall patient appears well but does have increasing troponin, leukocytosis, creatinine elevation. She has no chest pain or shortness of breath suggest ACS. EKG as below. Will admit to the hospital for this. - Discussed with [facility] service for admission Differential diagnosis: Hemorrhagic diarrhea, colitis, GI bleed, hemorrhoids Independent History obtained from: Diagnostics interpreted by me: ECG: ECG independently interpreted by me with sinus tachycardia, PACs, rate of 101, normal MO, left bundle branch block, normal QTc, no ST segment elevations consistent with STEMI criteria Cardiac Monitoring: An order was placed for continuous cardiac monitoring. The monitor shows a rate of 86 with sinus rhythm. Past Med/Surg History Problem List (Updated 02/27/25 @ 17:13 by Dawna Davis MD) Elevated troponin (Acute) MARCY (acute kidney injury) (Acute) Elevated troponin Bloody diarrhea Proctocolitis (Acute) Nausea vomiting and diarrhea Depression with anxiety Paroxysmal supraventricular tachycardia Family history of ischemic heart disease Dyslipidemia HTN (hypertension) Palpitation LBBB (left bundle branch block) (Acute) Chest pain (Acute) Fall (Acute) Chest wall contusion (Acute) Fibromyalgia (Chronic) Medical History Overactive bladder had mesh placed 2022 History of palpitations (12/2023) admit to [facility] with PSVT, had stress and echo, will see Brown 02/27 Dyslipidemia LBBB (left bundle branch block) Hx of chest pain (01/22/24) admit to [facility] with PSVT, had stress and echo Fibromyalgia IBS (irritable bowel syndrome) HTN (hypertension) Paroxysmal supraventricular tachycardia (12/2023) had holter monitor x 2 weeks after admission to [facility], will see Brown on 02/27 Hx of diverticulitis of colon Depression with anxiety Surgical History H/O left cataract extraction Hx of cardiac catheterization (2013) [place]-due to LBBB- no blockages, normal, follows with brown (02/27) Hx of colonoscopy Hx of tooth extraction History of bladder surgery (2022) with mesh Hx of cholecystectomy (1984) Hx of section 1984, 1992 Family History Other Coronary heart disease No family history of adverse response to anesthesia Social History Smoking Status: Never smoker Second Hand Exposure: No; Do You Dip or Chew Tobacco: No; Hx Alcohol Use: No Hx Substance Use: No Preferred Language: [place]ese Communication Ability: Effective Certified Pharmacy Technician Required: No Beliefs That Will Affect Care: None Current Living Situation: Spouse Feels Safe at Home: Yes Assistive Devices: None Allergies Allergies Allergy/AdvReac Type Severity Reaction Status Date / Time No Known Allergies Allergy Verified 03/22/24 06:17 Home Meds Home Medications Medication Instructions Recorded Confirmed alprazolam 0.5 mg tablet (Xanax) 0.5 mg PO BID PRN Sleep #0 tabs 10/10/14 02/27/25 desvenlafaxine succinate 50 mg 50 mg PO QAM 01/24/24 02/27/25 tablet,extended release 24 hr esomeprazole magnesium 40 mg 40 mg PO HS 01/24/24 02/27/25 capsule,delayed release estradiol 0.01% (0.1 mg/gram) 1 g vaginal [id number] PRN Other 01/24/24 02/27/25 vaginal cream lisinopril 10 mg tablet 10 mg PO QAM 01/24/24 02/27/25 multivitamin 1 tab PO HS 01/24/24 02/27/25 tolterodine 4 mg capsule,extended 4 mg PO QAM 01/24/24 02/27/25 release 24 hr dextromethorphan-guaifenesin ER 60 1 tab PO QAM 02/24/24 02/27/25 mg-1,200 mg tab,extend release,12hr (Mucinex DM) loratadine 10 mg tablet (Allergy 10 mg PO DAILY 02/24/24 02/27/25 Relief (loratadine)) magnesium 200 mg tablet 400 mg PO DAILY 02/24/24 02/27/25 diltiazem HCl 180 mg capsule,24 180 mg PO DAILY 02/27/25 02/27/25 hr,extended release flecainide 50 mg tablet 50 mg PO BID 02/27/25 02/27/25 Results & Data (ED) Vital Signs Vital Signs - 24 hr 02/27/25 08:36 02/27/25 08:40 02/27/25 09:06 Temperature 36.6 C Temperature Source Oral Pulse Rate 98 H 105 H 101 H Pulse Rate from SpO2 Sensor Pulse Rhythm Regular Regular Pulse Strength Normal Respiratory Rate 18 18 16 Respiratory Effort / Characteristics Non-Labored Spontaneous Respiratory Depth Normal Respiratory Pattern Regular Blood Pressure 123/80 161/74 H Blood Pressure Mean 94 131 Blood Pressure Position Sitting Pulse Oximetry 95 98 93 Oxygen Delivery Method Room Air Room Air Room Air Sepsis Recent Fever Within 48 Hours No Sepsis New/Unexplained Change in Mental Status No Sepsis Action Taken by Nursing No Action Required 02/27/25 09:37 02/27/25 10:28 02/27/25 11:12 Temperature Temperature Source Pulse Rate 97 H 92 H 96 H Pulse Rate from SpO2 Sensor Pulse Rhythm Pulse Strength Respiratory Rate 17 21 Respiratory Effort / Characteristics Respiratory Depth Respiratory Pattern Blood Pressure 159/71 H 136/86 Blood Pressure Mean 96 112 Blood Pressure Position Pulse Oximetry 96 96 Oxygen Delivery Method Room Air Room Air Sepsis Recent Fever Within 48 Hours Sepsis New/Unexplained Change in Mental Status Sepsis Action Taken by Nursing 02/27/25 11:30 02/27/25 11:30 02/27/25 12:00 Temperature Temperature Source Pulse Rate 110 H 100 H 96 H Pulse Rate from SpO2 Sensor Pulse Rhythm Pulse Strength Respiratory Rate 16 18 16 Respiratory Effort / Characteristics Respiratory Depth Respiratory Pattern Blood Pressure 152/88 H 152/88 H 140/73 Blood Pressure Mean 131 131 89 Blood Pressure Position Pulse Oximetry 95 95 95 Oxygen Delivery Method Room Air Room Air Room Air Sepsis Recent Fever Within 48 Hours Sepsis New/Unexplained Change in Mental Status Sepsis Action Taken by Nursing 02/27/25 12:30 Temperature Temperature Source Pulse Rate 95 H Pulse Rate from SpO2 Sensor 98 H Pulse Rhythm Pulse Strength Respiratory Rate 16 Respiratory Effort / Characteristics Respiratory Depth Respiratory Pattern Blood Pressure 122/69 Blood Pressure Mean 87 Blood Pressure Position Pulse Oximetry 95 Oxygen Delivery Method Room Air Sepsis Recent Fever Within 48 Hours Sepsis New/Unexplained Change in Mental Status Sepsis Action Taken by Nursing Laboratory Data 02/27/25 09:06 02/27/25 09:06 Lab Results 02/27/25 02/27/25 02/27/25 Range/Units 09:06 09:27 10:29 WBC 21.04 H (4.8-10.8) K/ul RBC 4.79 (4.20-5.40) M/uL Hgb 14.5 (12.0-16.0) g/dl Hct 43.3 (37.0-47.0) % MCV 90.4 (80.0-100.0) fL MCH 30.3 (25.0-34.0) pg MCHC 33.5 (32.0-36.0) g/dL RDW Std Deviation 44.2 (36.4-46.3) fL RDW Coeff of Nigel 13.5 (11.5-14.5) % Plt Count 282 (130-400) K/uL MPV 8.6 L (9.4-12.4) fL Immature Gran % (Auto) 0.4 % Neut % (Auto) 80.0 % Lymph % (Auto) 12.3 % [place]ville % (Auto) 6.6 % Eos % (Auto) 0.4 % Baso % (Auto) 0.3 % Neut # (Auto) 16.84 H (1.40-6.50) K/uL Lymph # (Auto) 2.58 (1.20-3.40) K/uL [place]ville # (Auto) 1.39 H (0.11-0.59) K/uL Eos # (Auto) 0.08 (0.00-0.50) K/uL Baso # (Auto) 0.07 (0.00-0.20) K/uL Immature Gran # (Auto) 0.08 (0.01-0.20) K/uL Sodium 138 (136-145) mmol/L Potassium 3.9 (3.5-5.1) mmol/L Chloride 104 (98-107) mmol/L Carbon Dioxide 25 (21-32) mmol/L Anion Gap 9 (3-11) BUN 22 (6-23) mg/dl Creatinine 1.24 H (0.6-1.2) mg/dl Est Cr Clr Drug Dosing 42.1 ml/min eGFR 46.82 BUN/Creatinine Ratio 17.7 (10-20) Glucose 121 H (70-99(Fasting)) mg/dl Lactate 1.7 (0.4-2.0) mmol/L Calcium 9.2 (8.6-10.3) mg/dl Magnesium 2.8 H (1.7-2.4) mg/dl Total Bilirubin 0.8 (0.2-1.0) mg/dl Direct Bilirubin 0.2 (0-0.2) mg/dl AST 42 H (13-39) U/L ALT 40 (7-52) U/L Alkaline Phosphatase 80 (34-104) U/L Troponin I High Sens 76.1 H* (0-14) pg/ml Total Protein 6.9 (6.0-8.3) gm/dl Albumin 4.2 (3.4-5.0) gm/dl Urine Color Yellow Urine Appearance Clear (Clear) Urine pH 5.5 (4.5-7.5) Ur Specific Elsa 1.039 H (1.000-1.030) Urine Protein Trace H (Negative) Urine Glucose (UA) Negative (Negative) Urine Ketones Negative (Negative) Urine Blood 1+ H (Negative) Urine Nitrite Negative (Negative) Urine Bilirubin Negative (Negative) Urine Urobilinogen Negative (Negative) Ur Leukocyte Esterase 1+ H (Negative) Urine WBC (Auto) 11-20 H (0-5) /hpf Urine RBC (Auto) 6-10 H (0-2) /hpf U Hyaline Cast (Auto) 3-5 H (0-2) /lpf U Epithel Cells (Auto) 3-5 H (0-2) /hpf Urine Bacteria (Auto) None Seen (None Seen) Urine Comment Stl C. cayetanensis PCR Not Detected (NotDetected) Stool Rotavirus A PCR Not Detected (NotDetected) Stl Adenov F 40/41 PCR Not Detected (NotDetected) Stool Astrovirus (PCR) Not Detected (NotDetected) Stool Campylobacter PCR Not Detected (NotDetected) Stool Cryptosporidium PCR Not Detected (NotDetected) Stl E.coli Shiga Tox PCR Not Detected (NotDetected) Stl Enterotoxigenic E PCR Not Detected (NotDetected) Stool EPEC (PCR) Not Detected (NotDetected) Stool EAEC (PCR) Not Detected (NotDetected) Stl E. histolytica PCR Not Detected (NotDetected) Stool Giardia Lamblia PCR Not Detected (NotDetected) Stool Salmonella PCR Not Detected (NotDetected) Stool Sapovirus (PCR) Not Detected (NotDetected) Stl P. shigelloides PCR Not Detected (NotDetected) Stl Shigella/EIEC PCR Not Detected (NotDetected) St Y.enterocolitica PCR Not Detected (NotDetected) Stool Vibrio (PCR) Not Detected (NotDetected) Stl Vibrio cholerae PCR Not Detected (NotDetected) Stl Norovirus GI/GII PCR Not Detected (NotDetected) 02/27/25 Range/Units 11:02 WBC (4.8-10.8) K/ul RBC (4.20-5.40) M/uL Hgb (12.0-16.0) g/dl Hct (37.0-47.0) % MCV (80.0-100.0) fL MCH (25.0-34.0) pg MCHC (32.0-36.0) g/dL RDW Std Deviation (36.4-46.3) fL RDW Coeff of Nigel (11.5-14.5) % Plt Count (130-400) K/uL MPV (9.4-12.4) fL Immature Gran % (Auto) % Neut % (Auto) % Lymph % (Auto) % Granville % (Auto) % Eos % (Auto) % Baso % (Auto) % Neut # (Auto) (1.40-6.50) K/uL Lymph # (Auto) (1.20-3.40) K/uL Granville # (Auto) (0.11-0.59) K/uL Eos # (Auto) (0.00-0.50) K/uL Baso # (Auto) (0.00-0.20) K/uL Immature Gran # (Auto) (0.01-0.20) K/uL Sodium (136-145) mmol/L Potassium (3.5-5.1) mmol/L Chloride (98-107) mmol/L Carbon Dioxide (21-32) mmol/L Anion Gap (3-11) BUN (6-23) mg/dl Creatinine (0.6-1.2) mg/dl Est Cr Clr Drug Dosing ml/min eGFR BUN/Creatinine Ratio (10-20) Glucose (70-99(Fasting)) mg/dl Lactate (0.4-2.0) mmol/L Calcium (8.6-10.3) mg/dl Magnesium (1.7-2.4) mg/dl Total Bilirubin (0.2-1.0) mg/dl Direct Bilirubin (0-0.2) mg/dl AST (13-39) U/L ALT (7-52) U/L Alkaline Phosphatase (34-104) U/L Troponin I High Sens 106.1 H* D (0-14) pg/ml Total Protein (6.0-8.3) gm/dl Albumin (3.4-5.0) gm/dl Urine Color Urine Appearance (Clear) Urine pH (4.5-7.5) Ur Specific Elsa (1.000-1.030) Urine Protein (Negative) Urine Glucose (UA) (Negative) Urine Ketones (Negative) Urine Blood (Negative) Urine Nitrite (Negative) Urine Bilirubin (Negative) Urine Urobilinogen (Negative) Ur Leukocyte Esterase (Negative) Urine WBC (Auto) (0-5) /hpf Urine RBC (Auto) (0-2) /hpf U Hyaline Cast (Auto) (0-2) /lpf U Epithel Cells (Auto) (0-2) /hpf Urine Bacteria (Auto) (None Seen) Urine Comment Stl C. cayetanensis PCR (NotDetected) Stool Rotavirus A PCR (NotDetected) Stl Adenov F 40/41 PCR (NotDetected) Stool Astrovirus (PCR) (NotDetected) Stool Campylobacter PCR (NotDetected) Stool Cryptosporidium PCR (NotDetected) Stl E.coli Shiga Tox PCR (NotDetected) Stl Enterotoxigenic E PCR (NotDetected) Stool EPEC (PCR) (NotDetected) Stool EAEC (PCR) (NotDetected) Stl E. histolytica PCR (NotDetected) Stool Giardia Lamblia PCR (NotDetected) Stool Salmonella PCR (NotDetected) Stool Sapovirus (PCR) (NotDetected) Stl P. shigelloides PCR (NotDetected) Stl Shigella/EIEC PCR (NotDetected) St Y.enterocolitica PCR (NotDetected) Stool Vibrio (PCR) (NotDetected) Stl Vibrio cholerae PCR (NotDetected) Stl Norovirus GI/GII PCR (NotDetected) Administered Medications Discontinued Medications Acetaminophen (Ofirmev) 1,000 mg in 100 mls @ 400 mls/hr IV NOW STA Stop: 02/27/25 11:54 Last Infusion: 02/27/25 12:02 Dose: Infused Documented By: Admin: 02/27/25 11:46 Dose: 400 mls/hr Documented By: KEVIN Sodium Chloride (Nss) 1,000 mls @ 999 mls/hr IV .Q1H1M ONE Stop: 02/27/25 13:59 Last Admin: 02/27/25 16:01 Dose: 999 mls/hr Documented By: RAE Ioversol (Optiray 320 125ml) 118 ml IV ONCE ONE Stop: 02/27/25 10:02 Last Admin: 02/27/25 10:02 Dose: 118 ml Documented By: RAFFI Imaging Data Radiologist's Impression: Chest X-Ray 02/27/25 08:49 XR chest 1V portable CLINICAL HISTORY: Sepsis COMPARISON STUDY: 01/24/2024 FINDINGS: There is a likely small hiatal hernia. There is mild cardiomegaly with mild pulmonary vascular congestion. No consolidation or pleural effusion. No pneumothorax. IMPRESSION: Mild CHF. ACT 112: Negative or not required by law. Electronically signed by: Fausto Painting M.D. 02/27/2025 9:17 AM Abdomen/Pelvis CTA 02/27/25 09:42 CT angio abdomen pelvis w con CLINICAL HISTORY: 70 years-old Female with GI bleed acute generalized abdominal pain with reported GI bleed COMPARISON STUDY: 10/10/2014 TECHNIQUE: Following the IV administration of 118 cc of Optiray, CT angiogram of the abdomen and pelvis was performed from the lung bases the proximal femora. Images are reviewed in the axial, sagittal, and coronal planes. 3-D MIPS images are created and assessed. All measurements were obtained according to NASCET criteria. IV contrast was administered without complication. A dose lowering technique was utilized adhering to the principles of ALARA. CT DOSE: 1113.69 mGy.cm FINDINGS: CTA: Mild to moderate atherosclerosis of the abdominal aorta and branch vessels. No abdominal aortic aneurysm or dissection. There is patency of the iliac and imaged femoral arteries. The vessels of the celiac trunk, superior and inferior mesenteric and renal arteries appear patent. No retroperitoneal hematoma or active extravasation. CT ABDOMEN/PELVIS: There is mild subsegmental bibasilar atelectasis. No pneumatosis or pneumoperitoneum. Unremarkable spleen, pancreas and adrenal glands. Cholecystectomy. Geographic hepatic steatosis. Unremarkable kidneys without hydronephrosis. Urinary bladder wall thickening with partial distention. Hysterectomy. No lymphadenopathy. Distal esophageal wall thickening with small to moderate hiatal hernia. No bowel obstruction. There is wall thickening of the left hemicolon extending from the mid transverse colon through the rectum, most pronounced in the descending segment where there is wall thickening with mucosal preemie on adjacent pericolonic stranding. Noninflamed appendix. Unremarkable soft tissues. No acute fracture. Mild chronic superior endplate compression deformities at L1 and L3. IMPRESSION: 1. Findings are compatible with a nonspecific left-sided proctocolitis. 2. No bowel obstruction or pneumoperitoneum. 3. Mild to moderate atherosclerosis without aneurysm, dissection, high-grade stenosis or arterial occlusion. 4. [id number] hiatal hernia. 5. Hepatic steatosis. ACT 112: Negative or not required by law. The above report was generated using voice recognition software. It may contain grammatical, syntax or spelling errors. Electronically signed by: Manoj Perrin M.D. 02/27/2025 10:25 AM Discharge Plan Visit Data Chief Complaint: Illness Stated Complaint: DIZZINESS, ABD PAIN, RECTAL BLEEDING ED Provider: Dawna Davis Discharge Problem: Proctocolitis, Elevated troponin, MARCY (acute kidney injury) Patient Disposition: Admitted As Inpatient Condition: Fair Discharge Instructions Interventions: ED Discharge Assessment Last Done: 02/27/25 14:50
[2025-02-27 09:43] LABS: Alanine Aminotransferase 40.0 U/L (7-52); Albumin Level 4.2 gm/dl (3.4-5.0); Alkaline Phosphatase 80.0 U/L (34-104); Anion Gap 9.0 (3-11); Bilirubin,Total 0.8 mg/dl (0.2-1.0); Blood Urea Nitrogen 22.0 mg/dl (6-23); Calcium 9.2 mg/dl (8.6-10.3); Carbon Dioxide 25.0 mmol/L (21-32); Chloride 104.0 mmol/L (98-107); Creatinine Clr Calc Pharmacy 42.1 ml/min; Glucose 121.0 mg/dl (70-99(Fasting)); Magnesium 2.8 mg/dl (1.7-2.4); Potassium 3.9 mmol/L (3.5-5.1); Sodium 138.0 mmol/L (136-145); Total Protein 6.9 gm/dl (6.0-8.3)
[2025-02-27] MEDS: OPTIRAY 320 125ml IV ONE (10:02)
--- NOTE | 2025-02-27 10:26 | CT Scan Report ---
CT angio abdomen pelvis w con CLINICAL HISTORY: 70 years-old Female with GI bleed acute generalized abdominal pain with reported GI bleed COMPARISON STUDY: 10/10/2014 TECHNIQUE: Following the IV administration of 118 cc of Optiray, CT angiogram of the abdomen and pelv is was performed from the lung bases the proximal femora. Images are reviewed in the axial, sagittal, and coronal planes. 3-D MIPS images are created and assessed. All measurements were obtained accordi ng to NASCET criteria. IV contrast was administered without complication. A dose lowering technique was utilized adhering to the principles of ALARA. CT DOSE: 1113.69 mGy.cm FINDINGS: CTA: Mild to moderate atherosclerosis of the abdominal aorta and branch vessels. No abdominal aortic aneurysm or dissection. There is patency of the iliac and imaged femoral arteries. The vessels of the celiac trunk, superior and inferior mesenteric and renal arteries appear patent. No retroperitoneal hematoma or active extravasation. CT ABDOMEN/PELVIS: There is mild subsegmental bibasilar atelectasis. No pneumatosis or pneumoperitoneum. Unremarkable sp maegan, pancreas and adrenal glands. Cholecystectomy. Geographic hepatic steatosis. Unremarkable kidney s without hydronephrosis. Urinary bladder wall thickening with partial distention. Hysterectomy. No l ymphadenopathy. Distal esophageal wall thickening with small to moderate hiatal hernia. No bowel obstruction. There i s wall thickening of the left hemicolon extending from the mid transverse colon through the rectum, m ost pronounced in the descending segment where there is wall thickening with mucosal preemie on adjac ent pericolonic stranding. Noninflamed appendix. Unremarkable soft tissues. No acute fracture. Mild c hronic superior endplate compression deformities at L1 and L3. IMPRESSION: 1. Findings are compatible with a nonspecific left-sided proctocolitis. 2. No bowel obstruction or pneumoperitoneum. 3. Mild to moderate atherosclerosis without aneurysm, dissection, high-grade stenosis or arterial occ lusion. 4. [id number] hiatal hernia. 5. Hepatic steatosis. ACT 112: Negative or not required by law. The above report was generated using voice recognition software. It may contain grammatical, syntax o r spelling errors. Electronically signed by: Manoj Perrin M.D. 02/27/2025 10:25 AM
[2025-02-27 10:42] LABS: Appearance Urine Clear (Clear); Bacteria Urine Automated None Seen (None Seen); Glucose Urine UA Negative (Negative)
[2025-02-27 11:35] LABS: Adenovirus F 40/41 PCR Not Detected (NotDetected); Campylobacter PCR Not Detected (NotDetected); Enteroaggregative E.coli(EAEC) Not Detected (NotDetected); Shiga-like Toxin E.coli (STEC) Not Detected (NotDetected); Vibrio species PCR Not Detected (NotDetected)
[2025-02-27] MEDS: ACETAMINOPHEN 1,000 MG/100 ML VIAL IV STA (11:46)
--- NOTE | 2025-02-27 12:31 | History & Physical Report ---
Date of Service February 27, 2025 Assessment & Plan (1) Nausea vomiting and diarrhea: (2) Proctocolitis: (3) Bloody diarrhea: Plan: Dehydration Meets SIRS criteria Patient is 70-year-old female with PMH HTN, dyslipidemia, LBBB, history paroxysmal SVT s/p failed SVT ablation, IBS, fibromyalgia, depression, anxiety presented to ER with c/o N/V and bloody diarrhea, lower abdominal pain x 1 day. In ER afebrile, P: 105, R: 18, BP 123/80, 98% on room air WBC: 21, Hgb: 14, Lactate: WNL, stool culture negative CT Abd/pelvis: Findings are compatible with a nonspecific left-sided proctocolitis. No bowel obstruction or pneumoperitoneum. Mild to moderate athero sclerosis without aneurysm, dissection, high-grade stenosis or arterial occlusion. [id number] hiatal hernia. Hepatic steatosis. In ER given IV Tylenol Repeat vitals at 12:30, P: 95, R: 16, BP 122/69, 95% on room air Obtain c-diff Obtain blood cultures Start IVF Unasyn Trial liquid diet CBC, BMP in am GI consult Per outpatient chart review: 11/08/2024 colonoscopy: normal exam (4) Elevated troponin: Plan: Troponin: 76, 106 EKG appears to have TWI in aVL, has chronic LBBB. Denies CP or SOB. Has reported chronic intermittent episodes of palpitations and tachycardia with CP, however states yesterday had mild palpitations without significant tachycardia and No CP reported Repeat EKG in am Will trend troponin Echo Cardiology consult (5) MARCY (acute kidney injury): Plan: BUN: 22, Cr: 1.2 IVF Monitor renal functions (6) Paroxysmal supraventricular tachycardia: Plan: -March 2024 EP study with no inducible SVT -History reported intolerance to metoprolol, verapamil and Tikosyn ineffective per cardiology note on 08/28/2024 -Evaluated by EP at [facility] in October 04, 2024 for ventricular arrhythmia and possible ablative therapy in which Patient went into a brief episode of sustained AT that terminated spontaneously. The AT stopped and was unable to be induced again and the procedure was concluded without any catheter ablation. Monitor on telemetry Continue home flecainide, diltiazem (7) HTN (hypertension): Plan: BP stable Hold home lisinopril and reassess tomorrow (8) Depression with anxiety: (9) Fibromyalgia: Plan: Continue home desvenlafaxine DVT Prophylaxis SCDs for now Admit telemetry Full code as per discussion with pt Follows with Dr Parks for routine care Pt was seen and care coordinated with Dr Connolly. See addendum I spent a total of 75 minutes reviewing notes, outpatient records, labs, medication, coordinating, documenting and providing care for this patient excluding time spent in the performance of separately billed services and excluding time spent by another provider/QHP. History of Present Illness Chief Complaint: N/V/D Primary Care Provider: Geovanna Parks DO Patient is 70-year-old female with PMH HTN, dyslipidemia, LBBB, history paroxysmal SVT s/p failed SVT ablation, IBS, fibromyalgia, depression, anxiety presented to ER with c/o N/V/D x 1 day. Patient reports history of IBS and years ago had IBS primarily diarrhea however now mostly constipation but manages with diet. She reports that started with nausea and vomiting started yesterday. Diarrhea started in afternoon. States numerous episodes of vomiting and diarrhea. States then started with bloody diarrhea. She reports losing 6lbs in past 24 hours. Also having left lower abdomen discomfort moving across lower abdomen and reports pain is sharp. Reports sweats and tactile fever but did not check her temperature. Feeling dizzy and weak today. Reports has intermittent episodes of palpitations and has associated chest pain and notes elevated HR on her apple watch that has been ongoing for years. States yesterday had some palpitations however not as severe as her "usual" previous episodes and denies any chest pain with this episode yesterday. Denies any chest pains today. Denies hematemesis, VILLAVICENCIO, syncope, vision changes, neck pain, CP, SOB, cough, sore throat, rhinorrhea, paresthesias, weakness, extremity weakness, extremity edema, rashes, urinary symptoms. Allergies Allergy/AdvReac Type Severity Reaction Status Date / Time No Known Allergies Allergy Verified 03/22/24 06:17 Home Medications Medication Instructions Recorded Confirmed Type alprazolam 0.5 mg tablet (Xanax) 0.5 mg PO BID PRN Sleep #0 tabs 10/10/14 02/27/25 History desvenlafaxine succinate 50 mg 50 mg PO QAM 01/24/24 02/27/25 History tablet,extended release 24 hr esomeprazole magnesium 40 mg 40 mg PO HS 01/24/24 02/27/25 History capsule,delayed release estradiol 0.01% (0.1 mg/gram) 1 g vaginal 3XWK PRN Other 01/24/24 02/27/25 History vaginal cream lisinopril 10 mg tablet 10 mg PO QAM 01/24/24 02/27/25 History multivitamin 1 tab PO HS 01/24/24 02/27/25 History tolterodine 4 mg capsule,extended 4 mg PO QAM 01/24/24 02/27/25 History release 24 hr dextromethorphan-guaifenesin ER 60 1 tab PO QAM 02/24/24 02/27/25 History mg-1,200 mg tab,extend release,12hr (Mucinex DM) loratadine 10 mg tablet (Allergy 10 mg PO DAILY 02/24/24 02/27/25 History Relief (loratadine)) magnesium 200 mg tablet 400 mg PO DAILY 02/24/24 02/27/25 History diltiazem HCl 180 mg capsule,24 180 mg PO DAILY 02/27/25 02/27/25 History hr,extended release flecainide 50 mg tablet 50 mg PO BID 02/27/25 02/27/25 History Past Med/Surg History Problem List (Updated 02/27/25 @ 17:13 by Dawna Davis MD) Elevated troponin (Acute) MARCY (acute kidney injury) (Acute) Elevated troponin Bloody diarrhea Proctocolitis (Acute) Nausea vomiting and diarrhea Depression with anxiety Paroxysmal supraventricular tachycardia Family history of ischemic heart disease Dyslipidemia HTN (hypertension) Palpitation LBBB (left bundle branch block) (Acute) Chest pain (Acute) Fall (Acute) Chest wall contusion (Acute) Fibromyalgia (Chronic) Medical History Overactive bladder had mesh placed 2022 History of palpitations (12/2023) admit to [facility] with PSVT, had stress and echo, will see Brown 02/27 Dyslipidemia LBBB (left bundle branch block) Hx of chest pain (01/22/24) admit to [facility] with PSVT, had stress and echo Fibromyalgia IBS (irritable bowel syndrome) HTN (hypertension) Paroxysmal supraventricular tachycardia (12/2023) had holter monitor x 2 weeks after admission to [facility], will see Brown on 02/27 Hx of diverticulitis of colon Depression with anxiety Surgical History H/O left cataract extraction Hx of cardiac catheterization (2013) [place]-due to LBBB- no blockages, normal, follows with brown (02/27) Hx of colonoscopy Hx of tooth extraction History of bladder surgery (2022) with mesh Hx of cholecystectomy (1984) Hx of section 1992 Family History Other Coronary heart disease No family history of adverse response to anesthesia Social History Smoking Status: Never smoker Second Hand Exposure: No; Do You Dip or Chew Tobacco: No; Hx Alcohol Use: No Hx Substance Use: No Preferred Language: [place] African Communication Ability: Effective Shearing Shed Hand Required: No Beliefs That Will Affect Care: None Current Living Situation: Spouse Feels Safe at Home: Yes Assistive Devices: None Review of Systems Review of Systems: All systems reviewed & are unremarkable except as noted in HPI & below Physical Exam Physical Exam: PE per Dr Connolly Results & Data Results & Data Vital Signs (Past 12 Hours) Vital Signs Temp Pulse Resp BP Pulse Ox O2 Del Method 02/27/25 11:30 110 H 16 152/88 H 95 Room Air 02/27/25 11:12 96 H 21 136/86 96 Room Air 02/27/25 10:28 92 H 17 159/71 H 96 Room Air 02/27/25 09:37 97 H 02/27/25 09:06 101 H 16 161/74 H 93 Room Air 02/27/25 08:40 36.6 C 105 H 18 123/80 98 Room Air 02/27/25 08:36 98 H 18 95 Room Air Laboratory Results Short CBC 02/27/25 Range/Units 09:06 WBC 21.04 H (4.8-10.8) K/ul Hgb 14.5 (12.0-16.0) g/dl Hct 43.3 (37.0-47.0) % Plt Count 282 (130-400) K/uL BMP 02/27/25 09:06 Sodium 138 Potassium 3.9 Chloride 104 Carbon Dioxide 25 BUN 22 Creatinine 1.24 H Glucose 121 H Calcium 9.2 Liver Function 02/27/25 Range/Units 09:06 Total Bilirubin 0.8 (0.2-1.0) mg/dl Direct Bilirubin 0.2 (0-0.2) mg/dl AST 42 H (13-39) U/L ALT 40 (7-52) U/L Alkaline Phosphatase 80 (34-104) U/L Albumin 4.2 (3.4-5.0) gm/dl Urine 02/27/25 Range/Units 10:29 Urine Color Yellow Urine Appearance Clear (Clear) Urine pH 5.5 (4.5-7.5) Ur Specific [place] 1.039 H (1.000-1.030) Urine Protein Trace H (Negative) Urine Glucose (UA) Negative (Negative) Diagnostic Findings Chest X-Ray 02/27/25 08:49 XR chest 1V portable CLINICAL HISTORY: Sepsis COMPARISON STUDY: 01/24/2024 FINDINGS: There is a likely small hiatal hernia. There is mild cardiomegaly with mild pulmonary vascular congestion. No consolidation or pleural effusion. No pneumothorax. IMPRESSION: Mild CHF. ACT 112: Negative or not required by law. Electronically signed by: Fausto Painting M.D. 02/27/2025 9:17 AM Abdomen/Pelvis CTA 02/27/25 09:42 CT angio abdomen pelvis w con CLINICAL HISTORY: 70 years-old Female with GI bleed acute generalized abdominal pain with reported GI bleed COMPARISON STUDY: 10/10/2014 TECHNIQUE: Following the IV administration of 118 cc of Optiray, CT angiogram of the abdomen and pelvis was performed from the lung bases the proximal femora. Images are reviewed in the axial, sagittal, and coronal planes. 3-D MIPS images are created and assessed. All measurements were obtained according to NASCET criteria. IV contrast was administered without complication. A dose lowering technique was utilized adhering to the principles of ALARA. CT DOSE: 1113.69 mGy.cm FINDINGS: CTA: Mild to moderate atherosclerosis of the abdominal aorta and branch vessels. No abdominal aortic aneurysm or dissection. There is patency of the iliac and imaged femoral arteries. The vessels of the celiac trunk, superior and inferior mesenteric and renal arteries appear patent. No retroperitoneal hematoma or active extravasation. CT ABDOMEN/PELVIS: There is mild subsegmental bibasilar atelectasis. No pneumatosis or pneumoperitoneum. Unremarkable spleen, pancreas and adrenal glands. Cholecystectomy. Geographic hepatic steatosis. Unremarkable kidneys without hydronephrosis. Urinary bladder wall thickening with partial distention. Hysterectomy. No lymphadenopathy. Distal esophageal wall thickening with small to moderate hiatal hernia. No bowel obstruction. There is wall thickening of the left hemicolon extending from the mid transverse colon through the rectum, most pronounced in the descending segment where there is wall thickening with mucosal preemie on adjacent pericolonic stranding. Noninflamed appendix. Unremarkable soft tissues. No acute fracture. Mild chronic superior endplate compression deformities at L1 and L3. IMPRESSION: 1. Findings are compatible with a nonspecific left-sided proctocolitis. 2. No bowel obstruction or pneumoperitoneum. 3. Mild to moderate atherosclerosis without aneurysm, dissection, high-grade stenosis or arterial occlusion. 4. Mxwnk-[id number] hiatal hernia. 5. Hepatic steatosis. ACT 112: Negative or not required by law. The above report was generated using voice recognition software. It may contain grammatical, syntax or spelling errors. Electronically signed by: Manoj Perrin M.D. 02/27/2025 10:25 AM Supervising Physician Co-Signing Physician Notes Patient seen and examined Presents with nausea, vomiting and bloody diarrhea since yesterday associated with abd pain Also reported subjective fever and chills Reports dehydration and loss of about 6 pounds since yesterday Has some palpitation On exam, General: Not in distress Eyes: PERRL, conjunctivae normal, not pale, anicteric sclerae, EOM intact bilaterally ENMT: Very dry oral mucosa Respiratory: Normal respiratory effort, no respiratory distress, lungs clear to auscultation Cardiovascular: Tachycardic S1 S2 Gastrointestinal (Abdomen): Abdomen is not distended, soft, mild low abdominal tenderness, normal bowel sounds Musculoskeletal: No pedal edema Neurologic: Alert and oriented x 3, No focal weakness, sensation grossly intact Psychiatric: Euthymic mood and affect Labs notable for WBC of 21, Cr of 1.24, Trop 76.1->106 CT A/P noted nonspecific proctocolitis Does meet SIRS criteria with tachycardia and leukocytosis Hence, Sepsis due to colitis Patient also dehydrated with Acute kidney injury Bloody diarrhea. Reports history of IBS GI PCR negative. Get C diff Get blood cultures stat IV unasyn GI consult Give IVF NSS bolus and continue IVF Liquid diet Monitor renal function and hold lisinopril for now Elevated trop likely demand ischemia EKG did show new TWI in aVL, old LBBB. QTc is 497 Trend trop Cards c/s Continue [employer]ENT flecainide Other plans as detailed by Florence Gregg PA-C
--- NOTE | 2025-02-27 14:07 | Cardiology Consultation ---
Date of Consultation February 27, 2025 Assessment & Plan (1) Bloody diarrhea: (2) MARCY (acute kidney injury): (3) Elevated troponin: (4) Paroxysmal supraventricular tachycardia: (5) LBBB (left bundle branch block): Plan Patient is a 70-year-old female who presented to the emergency room for evaluation of abdominal pain and bloody diarrhea. [facility] laboratory studies notable for elevated troponin. EKG with chronic left bundle branch block. No distinct cardiac complaints with patient noting arrhythmia issues recently quiescent 1. Bloody diarrhea with evaluation pending 2. Chronic left bundle branch block 3. Paroxysmal supraventricular tachycardia mostly controlled with combination of diltiazem and flecainide. 4. Elevated troponin in the setting of acute renal insufficiency, noncardiac complaint Recommendations: Continue prehospital cardiac medication. Will review echocardiogram if significant wall motion amities present may need to revisit use of flecainide long-term. Do not suspect troponin elevation reflects acute coronary syndrome and anticoagulation/aspirin currently contraindicated. Cardiology will follow History of Present Illness Reason for Consultation: Elevated troponin Requesting Physician: Florence Gregg History of Present Illness Patient is a 70-year-old female with moderately complex cardiac history which includes 1. Paroxysmal supraventricular tachycardia not amenable to catheter ablation, [facility], [facility] most recent 10/04/2024 2. Chronic left bundle branch block 3. Hypertension 4. Normal coronary arteries by prior cardiac catheterization remotely, negative stress nuclear imaging 01/24/2024 5. Hypertension Patient presents now noting having developed over the last 1 to 2 days symptoms of abdominal pain and cramping followed by explosive bloody diarrhea. Denies any cardiac complaints other than diaphoresis with last episode of diarrhea. No chest pains, shortness of breath. Patient has a history of paroxysmal atrial arrhythmias usually 2 to 3 times /week. Has not observed any during current complaints. Low-grade fever yesterday. No change in medical therapies. No prior hematochezia or GI bleeding though irritable bowel syndrome present. Weight is stable No dizziness lightheadedness syncope or near syncope Allergies Allergy/AdvReac Type Severity Reaction Status Date / Time No Known Allergies Allergy Verified 03/22/24 06:17 Home Medications Medication Instructions Recorded Confirmed Type alprazolam 0.5 mg tablet (Xanax) 0.5 mg PO BID PRN Sleep #0 tabs 10/10/14 02/27/25 History desvenlafaxine succinate 50 mg 50 mg PO QAM 01/24/24 02/27/25 History tablet,extended release 24 hr esomeprazole magnesium 40 mg 40 mg PO HS 01/24/24 02/27/25 History capsule,delayed release estradiol 0.01% (0.1 mg/gram) 1 g vaginal 3XWK PRN Other 01/24/24 02/27/25 History vaginal cream lisinopril 10 mg tablet 10 mg PO QAM 01/24/24 02/27/25 History multivitamin 1 tab PO HS 01/24/24 02/27/25 History tolterodine 4 mg capsule,extended 4 mg PO QAM 01/24/24 02/27/25 History release 24 hr dextromethorphan-guaifenesin ER 60 1 tab PO QAM 02/24/24 02/27/25 History mg-1,200 mg tab,extend release,12hr (Mucinex DM) loratadine 10 mg tablet (Allergy 10 mg PO DAILY 02/24/24 02/27/25 History Relief (loratadine)) magnesium 200 mg tablet 400 mg PO DAILY 02/24/24 02/27/25 History diltiazem HCl 180 mg capsule,24 180 mg PO DAILY 02/27/25 02/27/25 History hr,extended release flecainide 50 mg tablet 50 mg PO BID 02/27/25 02/27/25 History Patient History Medical History Overactive bladder had mesh placed 2022 History of palpitations (12/2023) admit to [facility] with PSVT, had stress and echo, will see Brown 02/27 Dyslipidemia LBBB (left bundle branch block) Hx of chest pain (01/22/24) admit to [facility] with PSVT, had stress and echo Fibromyalgia IBS (irritable bowel syndrome) HTN (hypertension) Paroxysmal supraventricular tachycardia (12/2023) had holter monitor x 2 weeks after admission to [facility], will see Brown on 02/27 Hx of diverticulitis of colon Depression with anxiety Surgical History H/O left cataract extraction Hx of cardiac catheterization (2013) [place]-due to LBBB- no blockages, normal, follows with brown (02/27) Hx of colonoscopy Hx of tooth extraction History of bladder surgery (2022) with mesh Hx of cholecystectomy (1984) Hx of section 1992 Family History Other Coronary heart disease No family history of adverse response to anesthesia Social History Smoking Status: Never smoker Second Hand Exposure: No; Do You Dip or Chew Tobacco: No; Hx Alcohol Use: Yes (Hasn't drank for months) Hx Substance Use: Yes Last Used Substance Other:: 50 + years Preferred Language: Austrian Communication Ability: Effective Gold Tooler Required: No Beliefs That Will Affect Care: None Current Living Situation: Spouse Feels Safe at Home: Yes Assistive Devices: Glasses Review of Systems Review of Systems: All systems reviewed & are unremarkable except as noted in HPI & below Physical Exam Constitutional: WD/WN, vitals as above no acute distress Eyes: PERRL, conjunctivae normal, anicteric sclerae Neck: trachea midline, no thyromegaly Respiratory: normal respiratory effort, lungs clear to auscultation Cardiovascular: Rate/Rhythm: regular rate and regular rhythm Heart Sounds: normal S1, normal S2 and + gallop; no cardiac rub Vessels: no JVD Extremities: no edema Gastrointestinal (Abdomen): Percussion/Palpation: + abdomen tender (Mildly tender right upper quadrant and left lower quadrant hyperactive jimmy) and abdomen soft Musculoskeletal: no cyanosis or clubbing, extremities motor strength 5/5 Results & Data Vital Signs (Past 12 Hours) Vital Signs Temp Pulse Resp BP Pulse Ox O2 Del Method 02/27/25 12:30 95 H 16 122/69 95 Room Air 02/27/25 12:00 96 H 16 140/73 95 Room Air 02/27/25 11:30 100 H 18 152/88 H 95 Room Air 02/27/25 11:30 110 H 16 152/88 H 95 Room Air 02/27/25 11:12 96 H 21 136/86 96 Room Air 02/27/25 10:28 92 H 17 159/71 H 96 Room Air 02/27/25 09:37 97 H 02/27/25 09:06 101 H 16 161/74 H 93 Room Air 02/27/25 08:40 36.6 C 105 H 18 123/80 98 Room Air 02/27/25 08:36 98 H 18 95 Room Air Laboratory Results Laboratory Results - last 24 hr 02/27/25 02/27/25 02/27/25 09:06 09:27 10:29 WBC 21.04 H RBC 4.79 Hgb 14.5 Hct 43.3 MCV 90.4 MCH 30.3 MCHC 33.5 RDW Std Deviation 44.2 RDW Coeff of Nigel 13.5 Plt Count 282 MPV 8.6 L Immature Gran % (Auto) 0.4 Neut % (Auto) 80.0 Lymph % (Auto) 12.3 [place] % (Auto) 6.6 Eos % (Auto) 0.4 Baso % (Auto) 0.3 Neut # (Auto) 16.84 H Lymph # (Auto) 2.58 [place] # (Auto) 1.39 H Eos # (Auto) 0.08 Baso # (Auto) 0.07 Immature Gran # (Auto) 0.08 Sodium 138 Potassium 3.9 Chloride 104 Carbon Dioxide 25 Anion Gap 9 BUN 22 Creatinine 1.24 H Est Cr Clr Drug Dosing 42.1 eGFR 46.82 BUN/Creatinine Ratio 17.7 Glucose 121 H Lactate 1.7 Calcium 9.2 Magnesium 2.8 H Total Bilirubin 0.8 Direct Bilirubin 0.2 AST 42 H ALT 40 Alkaline Phosphatase 80 Troponin I High Sens 76.1 H* Total Protein 6.9 Albumin 4.2 Urine Color Yellow Urine Appearance Clear Urine pH 5.5 Ur Specific [place] 1.039 H Urine Protein Trace H Urine Glucose (UA) Negative Urine Ketones Negative Urine Blood 1+ H Urine Nitrite Negative Urine Bilirubin Negative Urine Urobilinogen Negative Ur Leukocyte Esterase 1+ H Urine WBC (Auto) 11-20 H Urine RBC (Auto) 6-10 H U Hyaline Cast (Auto) 3-5 H U Epithel Cells (Auto) 3-5 H Urine Bacteria (Auto) None Seen Urine Comment Stl C. cayetanensis PCR Not Detected Stool Rotavirus A PCR Not Detected Stl Adenov F 40/41 PCR Not Detected Stool Astrovirus (PCR) Not Detected Stool Campylobacter PCR Not Detected Stool Cryptosporidium PCR Not Detected Stl E.coli Shiga Tox PCR Not Detected Stl Enterotoxigenic E PCR Not Detected Stool EPEC (PCR) Not Detected Stool EAEC (PCR) Not Detected Stl E. histolytica PCR Not Detected Stool Giardia Lamblia PCR Not Detected Stool Salmonella PCR Not Detected Stool Sapovirus (PCR) Not Detected Stl P. shigelloides PCR Not Detected Stl Shigella/EIEC PCR Not Detected St Y.enterocolitica PCR Not Detected Stool Vibrio (PCR) Not Detected Stl Vibrio cholerae PCR Not Detected Stl Norovirus GI/GII PCR Not Detected 02/27/25 11:02 WBC RBC Hgb Hct MCV MCH MCHC RDW Std Deviation RDW Coeff of Nigel Plt Count MPV Immature Gran % (Auto) Neut % (Auto) Lymph % (Auto) [place] % (Auto) Eos % (Auto) Baso % (Auto) Neut # (Auto) Lymph # (Auto) [place] # (Auto) Eos # (Auto) Baso # (Auto) Immature Gran # (Auto) Sodium Potassium Chloride Carbon Dioxide Anion Gap BUN Creatinine Est Cr Clr Drug Dosing eGFR BUN/Creatinine Ratio Glucose Lactate Calcium Magnesium Total Bilirubin Direct Bilirubin AST ALT Alkaline Phosphatase Troponin I High Sens 106.1 H* D Total Protein Albumin Urine Color Urine Appearance Urine pH Ur Specific [place] Urine Protein Urine Glucose (UA) Urine Ketones Urine Blood Urine Nitrite Urine Bilirubin Urine Urobilinogen Ur Leukocyte Esterase Urine WBC (Auto) Urine RBC (Auto) U Hyaline Cast (Auto) U Epithel Cells (Auto) Urine Bacteria (Auto) Urine Comment Stl C. cayetanensis PCR Stool Rotavirus A PCR Stl Adenov F 40/41 PCR Stool Astrovirus (PCR) Stool Campylobacter PCR Stool Cryptosporidium PCR Stl E.coli Shiga Tox PCR Stl Enterotoxigenic E PCR Stool EPEC (PCR) Stool EAEC (PCR) Stl E. histolytica PCR Stool Giardia Lamblia PCR Stool Salmonella PCR Stool Sapovirus (PCR) Stl P. shigelloides PCR Stl Shigella/EIEC PCR St Y.enterocolitica PCR Stool Vibrio (PCR) Stl Vibrio cholerae PCR Stl Norovirus GI/GII PCR PG Care Time/CCT Total # of Minutes Spent Total Time Spent with Patient: Total time spent is greater than 50% in coordination of care (as documented) at patient's floor/unit and/or counseling patient: Coding Level of Care Code 99859 IN/OBS CONSULT LVL 4,60M Diagnoses Bloody diarrhea R19.7 MARCY (acute kidney injury) N17.9 Elevated troponin R79.89 Paroxysmal supraventricular tachycardia I47.10 LBBB (left bundle branch block) I44.7
[2025-02-27] MEDS ORDERED: POLYETHYLENE (MIRALAX) 17 GM PACK PO PRN (15:10)
[2025-02-27] MEDS ORDERED: ACETAMINOPHEN 325 MG TAB PO PRN (15:10)
[2025-02-27] MEDS: SODIUM CHLORIDE 0.9% 1,000 ML IV ONE (16:01)
[2025-02-27] MEDS: SODIUM CHLORIDE 0.9% 1,000 ML IV SCH (17:13)
[2025-02-27] MEDS: AMPICILLIN/SULBACTAM SOD 3,000 MG/100 ML BAG IV ONE (17:39)
[2025-02-27] MEDS: AMPICILLIN/SULBACTAM SOD 3,000 MG/100 ML BAG IV STA (17:42)
--- NOTE | 2025-02-27 18:21 | Electrocardiogram Report ---
Test Reason : Blood Pressure : */* mmHG Vent. Rate : 101 BPM Atrial Rate : 101 BPM P-R Int : 166 ms QRS Dur : 146 ms QT Int : 384 ms P-R-T Axes : 39 -12 105 degrees QTcB Int : 497 ms Sinus tachycardia with Premature atrial complexes Left bundle branch block Abnormal ECG When compared with ECG of 25-Jan-2024 05:48, Premature atrial complexes are now Present Vent. rate has increased by 35 bpm T wave inversion now evident in Lateral leads Confirmed by Cristian Johnson ([id number] on 02/27/2025 6:21:06 PM Referred By: Confirmed By: Cristian Johnson
[2025-02-27] MEDS: MULTIVITAMIN CHEWABLE TAB PO SCH (20:05)
[2025-02-27] MEDS: FLECAINIDE ACETATE 100 MG TABLET PO SCH (20:05)
[2025-02-27] MEDS: AMPICILLIN/SULBACTAM SOD 3,000 MG/100 ML BAG IV SCH (22:46)
[2025-02-28 06:04] LABS: Hematocrit (blood only) 36.3 % (37.0-47.0); Hemoglobin 12.6 g/dl (12.0-16.0); Immature Granulocytes # (auto) 0.05 K/uL (0.01-0.20); Immature Granulocytes % (auto) 0.3 %; Mean Corpuscular Hemoglobin 32.1 pg (25.0-34.0); Mean Corpuscular Volume 92.4 fL (80.0-100.0); Platelet Count 233 K/uL (130-400); RDW Standard Deviation 46.5 fL (36.4-46.3); Red Blood Count 3.93 M/uL (4.20-5.40); White Blood Count 14.69 K/ul (4.8-10.8)
[2025-02-28 06:18] LABS: Anion Gap 7.0 (3-11); Blood Urea Nitrogen 12.0 mg/dl (6-23); Calcium 8.4 mg/dl (8.6-10.3); Carbon Dioxide 23.0 mmol/L (21-32); Chloride 111.0 mmol/L (98-107); Cholesterol 152.0 mg/dl (0-200); Creatinine Clr Calc Pharmacy 50.2 ml/min; Glucose 97.0 mg/dl (70-99(Fasting)); HDL Cholesterol 49.0 mg/dl; Magnesium 2.2 mg/dl (1.7-2.4); Potassium 3.9 mmol/L (3.5-5.1); Sodium 141.0 mmol/L (136-145); Triglycerides 88.0 mg/dl (0-150)
[2025-02-28] MEDS: LORATADINE 10 MG TAB PO SCH (08:18)
--- NOTE | 2025-02-28 11:24 | Cardiology Progress Note ---
Date of Service February 28, 2025 Assessment & Plan (1) Bloody diarrhea: (2) MARCY (acute kidney injury): (3) Elevated troponin: (4) Paroxysmal supraventricular tachycardia: (5) LBBB (left bundle branch block): Plan Patient is a 70-year-old female who presented to the emergency room for evaluation of abdominal pain and bloody diarrhea. [facility] laboratory studies notable for elevated troponin. EKG with chronic left bundle branch block. No distinct cardiac complaints with patient noting arrhythmia issues recently quiescent 1. Bloody diarrhea with evaluation pending 2. Chronic left bundle branch block 3. Paroxysmal supraventricular tachycardia mostly controlled with combination of diltiazem and flecainide. 4. Elevated troponin in the setting of acute renal insufficiency, noncardiac complaint Recommendations: Continue prehospital cardiac medication. Will review echocardiogram if significant wall motion amities present may need to revisit use of flecainide long-term. Do not suspect troponin elevation reflects acute coronary syndrome and anticoagulation/aspirin currently contraindicated. Cardiology will follow 02/28/2025 70-year-old female with known paroxysmal atrial tachycardia and atrial arrhythmia on chronic arrhythmic therapy with flecainide and diltiazem. Chronic left bundle branch block. Prior ischemic evaluations negative including coronary angiography remotely in stress nuclear imaging 2023 Presented with symptoms complaints of abdominal pain and bloody diarrhea. 1. Bloody diarrhea with evaluation pending 2. Paroxysmal supraventricular tachycardia 3. Chronic left bundle branch block 4. Elevated troponin in the setting of acute renal insufficiency noncardiac in plaints findings do not suggest acute coronary syndrome Continue current medications. Echocardiogram reviewed with normal LV systolic function. No contraindications to procedures or evaluation if necessary Admission and Anticipated Discharge Date Admission Date: February 27, 2025 Subjective Patient was seen and examined, chart, medications, telemetry reviewed. Feels improved from day prior abdominal cramping less pronounced. Still with loose stool and possible blood this morning. No sense of tachypalpitations syncope or near syncope Telemetry sinus and sinus tachycardia with left bundle branch block configuration. Brief runs of atrial tachycardia 3-4 beats in duration, Sinus arrhythmia Renal function improving Physical Exam Constitutional: WD/WN, vitals as above no acute distress Eyes: PERRL, conjunctivae normal, anicteric sclerae Neck: trachea midline, no thyromegaly Respiratory: normal respiratory effort, lungs clear to auscultation Cardiovascular: Rate/Rhythm: regular rate and regular rhythm Heart Sounds: normal S1, normal S2 and + gallop; no cardiac rub Vessels: no JVD Extremities: no edema Gastrointestinal (Abdomen): Percussion/Palpation: + abdomen tender (Mildly tender right upper quadrant and left lower quadrant hyperactive jimmy) and ab domen soft Musculoskeletal: no cyanosis or clubbing, extremities motor strength 5/5 Results & Data Vital Signs (Past 12 Hours) Vital Signs Temp Pulse Pulse Resp BP BP Pulse Ox 02/28/25 11:11 37.5 C 98 H 20 135/73 94 02/28/25 07:29 37.0 C 100 H 19 111/75 94 02/28/25 06:50 02/28/25 04:26 97 H 113/59 L 02/28/25 02:39 37.2 C 96 H 18 98/63 L 93 02/27/25 23:25 96 H O2 Del Method 02/28/25 11:11 Room Air 02/28/25 07:29 Room Air 02/28/25 06:50 Room Air 02/28/25 04:26 02/28/25 02:39 Room Air 02/27/25 23:25 Laboratory Results Laboratory Results - last 24 hr 02/27/25 02/27/25 02/27/25 09:27 11:02 17:00 WBC RBC Hgb Hct MCV MCH MCHC RDW Std Deviation RDW Coeff of Nigel Plt Count MPV Immature Gran % (Auto) Neut % (Auto) Lymph % (Auto) Willacy % (Auto) Eos % (Auto) Baso % (Auto) Neut # (Auto) Lymph # (Auto) Willacy # (Auto) Eos # (Auto) Baso # (Auto) Immature Gran # (Auto) Sodium Potassium Chloride Carbon Dioxide Anion Gap BUN Creatinine Est Cr Clr Drug Dosing eGFR BUN/Creatinine Ratio Glucose Calcium Magnesium Troponin I High Sens 106.1 H* D 81.0 H* D Triglycerides Cholesterol LDL Cholesterol, Calc VLDL Cholesterol, Calc HDL Cholesterol Cholesterol/HDL Ratio Stl C. cayetanensis PCR Not Detected Stool Rotavirus A PCR Not Detected Stl Adenov F 40/41 PCR Not Detected Stool Astrovirus (PCR) Not Detected Stool Campylobacter PCR Not Detected Stool Cryptosporidium PCR Not Detected Stl E.coli Shiga Tox PCR Not Detected Stl Enterotoxigenic E PCR Not Detected Stool EPEC (PCR) Not Detected Stool EAEC (PCR) Not Detected Stl E. histolytica PCR Not Detected Stool Giardia Lamblia PCR Not Detected Stool Salmonella PCR Not Detected Stool Sapovirus (PCR) Not Detected Stl P. shigelloides PCR Not Detected Stl Shigella/EIEC PCR Not Detected St Y.enterocolitica PCR Not Detected Stool Vibrio (PCR) Not Detected Stl Vibrio cholerae PCR Not Detected Stl Norovirus GI/GII PCR Not Detected Hepatitis C Ab Screen 02/27/25 02/28/25 22:47 05:27 WBC 14.69 H RBC 3.93 L Hgb 12.6 Hct 36.3 L MCV 92.4 MCH 32.1 MCHC 34.7 RDW Std Deviation 46.5 H RDW Coeff of Nigel 13.6 Plt Count 233 MPV 8.8 L Immature Gran % (Auto) 0.3 Neut % (Auto) 68.3 Lymph % (Auto) 22.5 Willacy % (Auto) 6.3 Eos % (Auto) 2.0 Baso % (Auto) 0.6 Neut # (Auto) 10.02 H Lymph # (Auto) 3.31 Willacy # (Auto) 0.93 H Eos # (Auto) 0.29 Baso # (Auto) 0.09 Immature Gran # (Auto) 0.05 Sodium 141 Potassium 3.9 Chloride 111 H Carbon Dioxide 23 Anion Gap 7 BUN 12 Creatinine 0.94 D Est Cr Clr Drug Dosing 50.2 eGFR 65.28 BUN/Creatinine Ratio 12.8 Glucose 97 Calcium 8.4 L Magnesium 2.2 Troponin I High Sens 74.2 H* Triglycerides 88 Cholesterol 152 LDL Cholesterol, Calc 85 VLDL Cholesterol, Calc 18 HDL Cholesterol 49 Cholesterol/HDL Ratio 3.1 Stl C. cayetanensis PCR Stool Rotavirus A PCR Stl Adenov F 40/41 PCR Stool Astrovirus (PCR) Stool Campylobacter PCR Stool Cryptosporidium PCR Stl E.coli Shiga Tox PCR Stl Enterotoxigenic E PCR Stool EPEC (PCR) Stool EAEC (PCR) Stl E. histolytica PCR Stool Giardia Lamblia PCR Stool Salmonella PCR Stool Sapovirus (PCR) Stl P. shigelloides PCR Stl Shigella/EIEC PCR St Y.enterocolitica PCR Stool Vibrio (PCR) Stl Vibrio cholerae PCR Stl Norovirus GI/GII PCR Hepatitis C Ab Screen Negative PG Care Time/CCT Total # of Minutes Spent Total Time Spent with Patient: Total time spent is greater than 50% in coordination of care (as documented) at patient's floor/unit and/or counseling patient: Coding Level of Care Code 91228 SUB INP/OBS CARE 3/50MIN Diagnoses Bloody diarrhea R19.7 MARCY (acute kidney injury) N17.9 Elevated troponin R79.89 Paroxysmal supraventricular tachycardia I47.10 LBBB (left bundle branch block) I44.7
--- NOTE | 2025-02-28 12:56 | Gastrointestinal Consultation ---
Date of Consultation February 28, 2025 Assessment & Plan (1) Bloody diarrhea: (2) Abnormal CT scan, colon: Plan Seems possible based on her description that this is marketing representative of an ischemic colitis. Will discuss further with Dr. Decker regarding potential flex sig as patient is pushing for endoscopic evaluation. Continue to monitor H/H. Please refer to attending physician statement for further recommendations when complete. Supervising Physician Co-Signing Physician Notes Symptoms CT findings consistent with ischemic colitis. Patient very interested in confirming this diagnosis. I think a flexible sigmoidoscopy with tapwater enema would be sufficient. Patient agreeable. Potential risks including bleeding and bowel injury reviewed informed consent obtained History of Present Illness Reason for Consultation: Bloody diarrhea Attending Physician: Petey Guajardo, History of Present Illness Patient is a 70 yo female who presented to the ED with nausea, vomiting, diarrhea and rectal bleeding. She notes that the bloody diarrhea was her first symptom. She then developed LLQ pain that radiated across her abdomen. She had sweats and dizziness. She felt like she had a fever, but admittedly did not check her temp. She notes she had a colonoscopy in October 2024 with her [facility] food demonstrator and notes it was unremarkable. I do not have a copy of this study. BUN/Cr 12/0.94. In the ED, she was noted to have a CTA that shows CTA abd/pelvis: IMPRESSION: 1. Findings are compatible with a nonspecific left-sided proctocolitis. 2. No bowel obstruction or pneumoperitoneum. 3. Mild to moderate atherosclerosis without aneurysm, dissection, high-grade stenosis or arterial occlusion. 4. Gahvs-[id number] hiatal hernia. 5. Hepatic steatosis. She had a negative stool PCR. Her WBC today is 14,690 but was >21,000 on presentation. She had elevated troponins as well. These appear to have peaked at 106. Cardiology is following. Allergies Allergy/AdvReac Type Severity Reaction Status Date / Time No Known Allergies Allergy Verified 03/22/24 06:17 Home Medications Medication Instructions Recorded Confirmed Type alprazolam 0.5 mg tablet (Xanax) 0.5 mg PO BID PRN Sleep #0 tabs 10/10/14 02/27/25 History desvenlafaxine succinate 50 mg 50 mg PO QAM 01/24/24 02/27/25 History tablet,extended release 24 hr esomeprazole magnesium 40 mg 40 mg PO HS 01/24/24 02/27/25 History capsule,delayed release estradiol 0.01% (0.1 mg/gram) 1 g vaginal 3XWK PRN Other 01/24/24 02/27/25 History vaginal cream lisinopril 10 mg tablet 10 mg PO QAM 01/24/24 02/27/25 History multivitamin 1 tab PO HS 01/24/24 02/27/25 History tolterodine 4 mg capsule,extended 4 mg PO QAM 01/24/24 02/27/25 History release 24 hr dextromethorphan-guaifenesin ER 60 1 tab PO QAM 02/24/24 02/27/25 History mg-1,200 mg tab,extend release,12hr (Mucinex DM) loratadine 10 mg tablet (Allergy 10 mg PO DAILY 02/24/24 02/27/25 History Relief (loratadine)) magnesium 200 mg tablet 400 mg PO DAILY 02/24/24 02/27/25 History diltiazem HCl 180 mg capsule,24 180 mg PO DAILY 02/27/25 02/27/25 History hr,extended release flecainide 50 mg tablet 50 mg PO BID 02/27/25 02/27/25 History Patient History Medical History Overactive bladder had mesh placed 2022 History of palpitations (12/2023) admit to [facility] with PSVT, had stress and echo, will see Brown 02/27 Dyslipidemia LBBB (left bundle branch block) Hx of chest pain (01/22/24) admit to [facility] with PSVT, had stress and echo Fibromyalgia IBS (irritable bowel syndrome) HTN (hypertension) Paroxysmal supraventricular tachycardia (12/2023) had holter monitor x 2 weeks after admission to [facility], will see Brown on 02/27 Hx of diverticulitis of colon Depression with anxiety Surgical History H/O left cataract extraction Hx of cardiac catheterization (2013) [place]-due to LBBB- no blockages, normal, follows with brown (02/27) Hx of colonoscopy Hx of tooth extraction History of bladder surgery (2022) with mesh Hx of cholecystectomy (1984) Hx of section 1992 Family History Other Coronary heart disease No family history of adverse response to anesthesia Social History Smoking Status: Never smoker Second Hand Exposure: No; Do You Dip or Chew Tobacco: No; Hx Alcohol Use: No Hx Substance Use: No Preferred Language: Egyptian Communication Ability: Effective 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 Beliefs That Will Affect Care: None Current Living Situation: Spouse Feels Safe at Home: Yes Assistive Devices: None Review of Systems Constitutional: + problem reported (dizzy); no fever and no chills Respiratory: no cough and no dyspnea Cardiovascular: no chest pain Gastrointestinal: + abdominal pain, + diarrhea/loose stool s and + blood in stools Physical Exam Constitutional: well developed Respiratory: normal respiratory effort Cardiovascular: Rate/Rhythm: regular rate Gastrointestinal (Abdomen): Inspection/Auscultation: abdomen normal to inspection Percussion/Palpation: + abdomen tender and abdomen soft Psychiatric: Orientation: alert and oriented x 3 Results & Data Vital Signs (Past 12 Hours) Vital Signs Temp Pulse Pulse Resp BP BP Pulse Ox 02/28/25 11:38 37.4 C 100 H 19 119/79 94 02/28/25 11:11 37.5 C 98 H 20 135/73 94 02/28/25 08:00 95 H 02/28/25 07:29 37.0 C 100 H 19 111/75 94 02/28/25 06:50 02/28/25 04:26 97 H 113/59 L 02/28/25 02:39 37.2 C 96 H 18 98/63 L 93 O2 Del Method 02/28/25 11:38 Room Air 02/28/25 11:11 Room Air 02/28/25 08:00 02/28/25 07:29 Room Air 02/28/25 06:50 Room Air 02/28/25 04:26 02/28/25 02:39 Room Air PG Care Time/CCT Total # of Minutes Spent Total Time Spent with Patient: Total time spent is greater than 50% in coordination of care (as documented) at patient's floor/unit and/or counseling patient: Coding Level of Care Code 21575 INT INP/OBS CARE 3/75MIN Diagnoses Bloody diarrhea R19.[address] scan, colon R93.3
[2025-02-28] MEDS: LORazepam Inj 0.5 MG in SYRINGE 0.25 ML IV STA (13:16)
--- NOTE | 2025-02-28 16:05 | Hospitalist Progress Note ---
Date of Service February 28, 2025 Assessment & Plan (1) Hemorrhagic gastroenteritis: (2) Demand ischemia: (3) Paroxysmal supraventricular tachycardia: (4) Fibromyalgia: (5) IBS (irritable bowel syndrome): (6) Depression with anxiety: Plan Patient 70-year-old female with what appears to be infectious hemorrhagic colitis. Seems to be responding to IV antibiotics Continue antibiotics Advance diet as tolerated Patient seems to be having a fair amount of anxiety associated with this illness, uses Xanax at home as needed will increase frequency during the hospitalization Monitor laboratory studies Encourage activity Communication with cardiology, continue with current medications Updated patient's via phone Admission and Anticipated Discharge Date Admission Date: February 27, 2025 Subjective Patient feeling little better this morning. Still with some watery bloody stools but frequency and amount has significantly decreased. Patient with anxiety and nausea as she attempted to advance her diet a little later on this morning. Physical Exam Physical Exam: Constitutional: Alert, nontoxic HEENT: Mucous membranes moist. Lungs: Clear to auscultation, decreased, no wheezes rales or rhonchi CV: S1-S2, regular Abdomen: Soft, no significant distention, mild tenderness, no guarding or rigidity Extremities: No significant edema Neuro: No focal deficits Psych: Cooperative, normal mood Results & Data Results & Data Vital Signs (Past 12 Hours) Vital Signs Temp Pulse Pulse Resp BP BP Pulse Ox 02/28/25 11:38 37.4 C 100 H 19 119/79 94 02/28/25 11:11 37.5 C 98 H 20 135/73 94 02/28/25 08:00 95 H 02/28/25 07:29 37.0 C 100 H 19 111/75 94 02/28/25 06:50 02/28/25 04:26 97 H 113/59 L O2 Del Method 02/28/25 11:38 Room Air 02/28/25 11:11 Room Air 02/28/25 08:00 02/28/25 07:29 Room Air 02/28/25 06:50 Room Air 02/28/25 04:26 Diagnostic Findings Reviewed imaging, laboratory and diagnostic studies. Pertinent findings as below. WBCs 14.6, improved Hemoglobin 12.6, stable Electrolytes reviewed, stable Creatinine 0.94 Troponins reviewed Stool BioFire negative
--- NOTE | 2025-02-28 18:25 | Electrocardiogram Report ---
Test Reason : Blood Pressure : */* mmHG Vent. Rate : 95 BPM Atrial Rate : 95 BPM P-R Int : 152 ms QRS Dur : 140 ms QT Int : 366 ms P-R-T Axes : 57 9 93 degrees QTcB Int : 459 ms Sinus rhythm with marked sinus arrhythmia Left bundle branch block Abnormal ECG When compared with ECG of 27-Feb-2025 08:51, Premature atrial complexes are no longer Present Confirmed by Cristian Johnson ([id number]) on 02/28/2025 6:24:49 PM Referred By: REFERRED SELF Confirmed By: Cristian Johnson
[2025-03-01 07:28] LABS: Hematocrit (blood only) 35.2 % (37.0-47.0); Hemoglobin 11.9 g/dl (12.0-16.0); Mean Corpuscular Hemoglobin 31.4 pg (25.0-34.0); Mean Corpuscular Volume 92.9 fL (80.0-100.0); Platelet Count 208 K/uL (130-400); RDW Standard Deviation 45.9 fL (36.4-46.3); Red Blood Count 3.79 M/uL (4.20-5.40); White Blood Count 9.27 K/ul (4.8-10.8)
[2025-03-01 07:46] LABS: Anion Gap 5.0 (3-11); Blood Urea Nitrogen 10.0 mg/dl (6-23); Calcium 8.9 mg/dl (8.6-10.3); Carbon Dioxide 26.0 mmol/L (21-32); Chloride 112.0 mmol/L (98-107); Creatinine Clr Calc Pharmacy 54.2 ml/min; Glucose 97.0 mg/dl (70-99(Fasting)); Potassium 3.7 mmol/L (3.5-5.1); Sodium 143.0 mmol/L (136-145)
--- NOTE | 2025-03-01 09:58 | History & Physical Bridge Note ---
Date of Service March 01, 2025 History & Physical Bridge Note I have examined the patient, reviewed the History & Physical and in the interval since the performance of the History & Physical I have noted the following changes of clinical significance: no changes noted Patient has been NPO since prior to midnight. She will need a tapwater enema this AM. Then will plan to proceed with flexible sigmoidoscopy today.
--- NOTE | 2025-03-01 12:40 | Anesthesiology Consultation ---
Date of Service March 01, 2025 Assessment & Plan Chart Review Chart Review: Acceptable Risk for Surgery and Patient NOT seen in Pre Admission Testing Consults Requested none History Surgery Operation Date: 03/01/25 17:00 Proposed Procedures p Flexible Sigmoidoscopy Dr. Jeronimo Decker MD Height/Weight Height: 5 ft 0.5 in Weight: 72.8 kg Allergies Allergy/AdvReac Type Severity Reaction Status Date / Time No Known Allergies Allergy Verified 03/22/24 06:17 Medications Home Medications Medication Instructions Recorded Confirmed Last Taken alprazolam 0.5 mg tablet (Xanax) 0.5 mg PO BID PRN Sleep #0 tabs 10/10/14 02/27/25 03/22/24 05:30 desvenlafaxine succinate 50 mg 50 mg PO [facility] 01/24/24 02/27/25 03/22/24 05:30 tablet,extended release 24 hr esomeprazole magnesium 40 mg 40 mg PO 01/24/24 02/27/25 01/23/24 capsule,delayed release estradiol 0.01% (0.1 mg/gram) 1 g vaginal 3XWK PRN Other 01/24/24 02/27/25 01/21/24 vaginal cream lisinopril 10 mg tablet 10 mg PO [facility] 01/24/24 02/27/25 03/22/24 05:30 multivitamin 1 tab PO HS 01/24/24 02/27/25 01/23/24 tolterodine 4 mg capsule,extended 4 mg PO [facility] 01/24/24 02/27/25 03/22/24 05:30 release 24 hr dextromethorphan-guaifenesin ER 60 1 tab PO [facility] 02/24/24 02/27/25 03/01/24 06:00 mg-1,200 mg tab,extend release,12hr (Mucinex DM) loratadine 10 mg tablet (Allergy 10 mg PO DAILY 02/24/24 02/27/25 Unknown Relief (loratadine)) magnesium 200 mg tablet 400 mg PO DAILY 02/24/24 02/27/25 Unknown diltiazem HCl 180 mg capsule,24 180 mg PO DAILY 02/27/25 02/27/25 Unknown hr,extended release flecainide 50 mg tablet 50 mg PO BID 02/27/25 02/27/25 02/27/25 Active Medications Generic Name Dose Route Start Last Admin Trade Name Malina PRN Reason Stop Dose Admin Alprazolam 0.5 mg 02/27/25 15:10 03/01/25 08:42 Alprazolam 0.5 Mg Tablet PO 03/29/25 15:09 0.5 mg BID PRN Administration Anxiety Diltiazem HCl 180 mg 02/28/25 09:00 03/01/25 08:32 Diltiazem Hcl 180 Mg Capcr PO 03/30/25 08:59 180 mg DAILY CLARIBEL Administration Protocol Flecainide Acetate 50 mg 02/27/25 21:00 03/01/25 08:32 Flecainide Acetate 100 Mg Tablet PO 03/29/25 20:59 50 mg BID CLARIBEL Administration Ampicillin Sodium/Sulbactam Sodium 3,000 mg in 100 mls @ 200 mls/hr 02/27/25 22:00 03/01/25 11:41 Unasyn IV 03/09/25 21:59 Infused Q6H CLARIBEL Infusion Lisinopril 10 mg 03/01/25 09:00 03/01/25 08:32 Lisinopril 10 Mg Tab PO 03/31/25 08:59 10 mg QAM CLARIBEL Administration Loratadine 10 mg 02/28/25 09:00 03/01/25 08:32 Loratadine 10 Mg Tab PO 03/30/25 08:59 10 mg DAILY CLARIBEL Administration Miscellaneous 1 each 02/27/25 16:00 03/01/25 08:31 Order Awaiting Action (Desvenlafaxine) N/A 03/29/25 15:59 Not Given QS CLARIBEL Multivitamins/Folic Acid/Vitamin C 1 tab 02/27/25 21:00 02/28/25 20:48 Multivitamin Chewable Tab PO 03/29/25 20:59 1 tab HS CLARIBEL Administration Protocol Pantoprazole Sodium 40 mg 02/27/25 21:00 02/28/25 20:48 Pantoprazole 40 Mg Tab PO 03/29/25 20:59 40 mg HS CLARIBEL Administration Protocol NPO Date Last Intake of Fluids: 03/01/25 Time Last Intake of Fluids: 10:00 Last Intake of Fluids Comment: sip with med Date Last Intake of Solids: 02/28/25 Time Last Intake of Solids: 18:00 Past Medical History Medical History Overactive bladder had mesh placed 2022 History of palpitations (12/2023) admit to [facility] with PSVT, had stress and echo, will see Brown 02/27 Dyslipidemia LBBB (left bundle branch block) Hx of chest pain (01/22/24) admit to [facility] with PSVT, had stress and echo Fibromyalgia IBS (irritable bowel syndrome) HTN (hypertension) Paroxysmal supraventricular tachycardia (12/2023) had holter monitor x 2 weeks after admission to [facility], will see Brown on 02/27 Hx of diverticulitis of colon Depression with anxiety Past Family History Family History Other Coronary heart disease No family history of adverse response to anesthesia Past Surgical History Surgical History H/O left cataract extraction Hx of cardiac catheterization (2013) [place]-due to LBBB- no blockages, normal, follows with brown (02/27) Hx of colonoscopy Hx of tooth extraction History of bladder surgery (2022) with mesh Hx of cholecystectomy (1984) Hx of section 1992 Social History Smoking Status: Never smoker Do You Dip or Chew Tobacco: No Hx Alcohol Use: No alcohol intake frequency: holidays/special occasions only Hx Substance Use: No substance use type: former substance user Last Used Substance Other:: 50 + years Physical Exam Vital Signs Last Vital Signs Temp 36.9 C 03/01/25 12:25 Pulse 79 03/01/25 12:25 Resp 16 03/01/25 12:25 BP 129/78 03/01/25 12:25 Pulse Ox 96 03/01/25 12:25 O2 Del Method Room Air 03/01/25 12:25 Testing Laboratory Results 03/01/25 06:54 03/01/25 06:54 Urine Color Yellow 02/27/25 10:29 Urine Appearance Clear (Clear) 02/27/25 10:29 Urine pH 5.5 (4.5-7.5) 02/27/25 10:29 Ur Specific [place] 1.039 (1.000-1.030) H 02/27/25 10:29 Urine Protein Trace (Negative) H 02/27/25 10:29 Urine Glucose (UA) Negative (Negative) 02/27/25 10:29 Urine Ketones Negative (Negative) 02/27/25 10:29 Urine Nitrite Negative (Negative) 02/27/25 10:29 Ur Leukocyte Esterase 1+ (Negative) H 02/27/25 10:29 Urine WBC (Auto) 11-20 /hpf (0-5) H 02/27/25 10:29 Urine RBC (Auto) 6-10 /hpf (0-2) H 02/27/25 10:29 U Hyaline Cast (Auto) 3-5 /lpf (0-2) H 02/27/25 10:29 U Epithel Cells (Auto) 3-5 /hpf (0-2) H 02/27/25 10:29 Urine Bacteria (Auto) None Seen (None Seen) 02/27/25 10:29 02/27/25 10:29 Urine Culture - Final Urine,Clean Catch Three types or organisms present, all moderate counts probable skin rain. No further identifications or sensitivities to follow. 02/27/25 17:10 Aerobic Blood Culture - Preliminary Blood No growth in Aerobic bottle after 24 hours. Anaerobic Blood Culture - Final 02/27/25 17:00 Aerobic Blood Culture - Preliminary Blood No growth in Aerobic bottle after 24 hours. Anaerobic Blood Culture - Final
--- NOTE | 2025-03-01 13:36 | Hospitalist Progress Note ---
Date of Service March 01, 2025 Assessment & Plan (1) Hemorrhagic gastroenteritis: (2) Demand ischemia: (3) Paroxysmal supraventricular tachycardia: (4) Fibromyalgia: (5) IBS (irritable bowel syndrome): (6) Depression with anxiety: Plan Patient overall is improving. Hemoglobin stable. Bloody stools have significantly decreased. Patient anticipating sigmoidoscopy today to evaluate for possible ischemic colitis Continue antibiotics Continue to monitor hemoglobin daily Advance diet pending results of sigmoidoscopy. Admission and Anticipated Discharge Date Admission Date: February 27, 2025 Subjective Patient feeling significantly improved. Bloody stools have essentially resolved. Some slight tenderness in her abdomen Physical Exam Physical Exam: Constitutional: Alert, nontoxic HEENT: Mucous membranes moist. Lungs: Clear to auscultation, decreased, no wheezes rales or rhonchi CV: S1-S2, regular Abdomen: Soft, minimal tenderness, no guarding, no rigidity, nondistended Extremities: No significant edema Neuro: No focal deficits Psych: Cooperative, normal mood Results & Data Results & Data Vital Signs (Past 12 Hours) Vital Signs Temp Pulse Resp BP Pulse Ox O2 Del Method 03/01/25 12:25 36.9 C 79 16 129/78 96 Room Air 03/01/25 07:00 36.8 C 76 16 122/77 95 Room Air Diagnostic Findings Reviewed imaging, laboratory and diagnostic studies. Pertinent findings as below. Hemoglobin 11.9, stable Electrolytes stable Creatinine 0.87
--- NOTE | 2025-03-01 13:41 | GI REPORT ---
[facility] Patient: RUDY ARANDA : 1955 Sex at : Female Age: 70 Years Procedure: Flexible Sigmoidoscopy Date: 03/01/2025 Attending Physician: Froy Decker MD Referring MD: Petey Guajardo DO Indications: Medications: - Monitored Anesthesia Care Complications: - No immediate complications. Estimated Blood Loss: - Estimated blood loss was minimal. Procedure: - The adult colonoscope was introduced through the anus and advanced to the left transverse colon. - The flexible sigmoidoscopy was accomplished without difficulty. - The patient tolerated the procedure well. - The quality of the bowel preparation was poor. Findings: - The digital rectal exam was normal. - Retained stool and like material in the colon. Beginning at approximately 40 cm extending to 65 cm there were changes consistent with ischemic colitis. These were most prevalent in the proximal descending colon with some necrosis. At 75 cm the colon became normal. This consistent with ischemic colitis in the watershed area, biopsied for confirmation Impression: - Preparation of the colon was poor. - Retained stool and like material in the colon. Beginning at approximately 40 cm extending to 65 cm there were changes consistent with ischemic colitis. These were most prevalent in the proximal descending colon with some necrosis. At 75 cm the colon became normal. This consistent with ischemic colitis in the watershed area - No specimens collected. Recommendation: - Ischemic colitis almost always improves on its own. Rarely does not require any surgical intervention. Patients can develop stricturing disease post. She should return if she develops bowel problems in the next 3 to 4 months. Frequent smaller meals for the next week or so may be of benefit. Await biopsy Procedure Code(s): - 74445, Sigmoidoscopy, flexible; diagnostic, including collection of specimen(s) by brushing or washing, when performed (separate procedure) CPT(R) - 2023 copyright [employer]. All Rights Reserved. The CPT codes, CCI edits and ICD codes generated are intended as suggestions and were generated based on input data. These codes are preliminary and upon buffing wheel former machine review may be revised to meet current compliance and payer requirements. The provider is responsible for the final determination of appropriate codes, and modifiers. Froy Decker MD This document has been electronically signed. Note Initiated:03/01/2025 Note Completed:03/01/2025 1:41 PM \\[email or web address]\Results\[email or web address]\[id number]
--- NOTE | 2025-03-01 15:00 | Anesthesiology Progress Note ---
Date of Service March 01, 2025 Anesthesia Post Procedure Vital Signs Vital Signs: Temp Pulse Resp BP Pulse Ox Pulse Ox O2 Del Method 03/01/25 14:05 74 16 155/76 H 98 Room Air 03/01/25 13:56 73 16 145/72 H 96 Room Air 03/01/25 13:40 78 16 107/55 L 95 Room Air 03/01/25 12:25 36.9 C 79 16 129/78 96 Room Air 03/01/25 07:00 36.8 C 76 16 122/77 95 Room Air 02/28/25 23:24 37.2 C 82 16 101/61 97 Room Air 02/28/25 19:19 37.1 C 94 H 18 120/75 94 Room Air 02/28/25 15:10 97 O2 Del Method 03/01/25 14:05 03/01/25 13:56 03/01/25 13:40 03/01/25 12:25 03/01/25 07:00 02/28/25 23:24 02/28/25 19:19 02/28/25 15:10 Room Air Pain Intensity Abdomen: Pain Intensity: 3 Transfer of Care Handoff Completed per policy Notes Mental Status: alert / awake / arousable Patient Amnestic to Procedure: Yes Nausea / Vomiting: adequately controlled Pain: adequately controlled Airway Patency, RR, SpO2: stable & adequate BP & HR: stable & adequate Hydration State: stable & adequate Anesthetic Complications: no major complications apparent and Pt Satisfied with anesthetic care
[2025-03-01] MEDS: AMOXICILLIN/CLAVULANATE 875 MG TAB PO SCH (17:09)
[2025-03-02 07:55] LABS: Hematocrit (blood only) 37.6 % (37.0-47.0); Hemoglobin 12.7 g/dl (12.0-16.0); Mean Corpuscular Hemoglobin 31.6 pg (25.0-34.0); Mean Corpuscular Volume 93.5 fL (80.0-100.0); Platelet Count 256 K/uL (130-400); RDW Standard Deviation 44.8 fL (36.4-46.3); Red Blood Count 4.02 M/uL (4.20-5.40); White Blood Count 9.02 K/ul (4.8-10.8)
[2025-03-02 08:14] VITALS: BP 99/62; PULSE 80; RESP 16; TEMP 98.8; O2SAT 94
[2025-03-02 08:17] LABS: Anion Gap 8.0 (3-11); Blood Urea Nitrogen 10.0 mg/dl (6-23); Calcium 8.9 mg/dl (8.6-10.3); Carbon Dioxide 25.0 mmol/L (21-32); Chloride 110.0 mmol/L (98-107); Creatinine Clr Calc Pharmacy 53.0 ml/min; Glucose 87.0 mg/dl (70-99(Fasting)); Potassium 3.8 mmol/L (3.5-5.1); Sodium 143.0 mmol/L (136-145)
--- NOTE | 2025-03-02 11:12 | Discharge Summary ---
Discharge Summary Date of Service March 02, 2025 Principal Dx & Hospital Course #1 = Principal Diagnosis (1) Acute ischemic colitis: (2) Hemorrhagic gastroenteritis: (3) Demand ischemia: (4) Paroxysmal supraventricular tachycardia: (5) Fibromyalgia: (6) IBS (irritable bowel syndrome): (7) Depression with anxiety: Plan Patient 70-year-old female who presented to the emergency room with acute onset of bloody diarrhea. She also had several episodes of vomiting. Also complained of some left lower abdominal discomfort. Also complained of some left lower abdominal discomfort. She denied any fever or chills. In the emergency room CT imaging consistent with colitis. Patient was admitted to the hospital. She was made NPO. She got IV fluid resuscitation. She was started empirically on antibiotics. Troponins were checked and were slightly elevated. Cardiology consultation was obtained. She has an extensive cardiac history. Was evaluated by cardiology who felt that the troponins were due to demand ischemia associated with her acute GI events echocardiogram was performed which showed normal ejection fraction and no significant abnormalities when compared to previous. GI consultation was obtained. They evaluated the patient and her symptoms were concerning for possible ischemic colitis. They recommended sigmoidoscopy. With these interventions the patient's bloody diarrhea started to slow significantly. Her hemoglobin remained stable. She did not require transfusion. Patient underwent sigmoidoscopy which showed evidence consistent with an ischemic colitis that was improving on its own. Post sigmoidoscopy patient's diet was advanced. She was transition to oral antibiotics. On the morning of discharge vital signs are stable. Was tolerating her diet. No further bloody stools. Will be discharged home to follow-up with primary care providers and her specialist. Notes For Next Care Provider Continue follow-up with outpatient providers Could consider starting platelet therapy in the next 2 to 4 weeks for atherosclerosis Medication Changes From Visit Augmentin for 3 more days Admission HPI Per Admitting Provider Patient is 70-year-old female with PMH HTN, dyslipidemia, LBBB, history paroxysmal SVT s/p failed SVT ablation, IBS, fibromyalgia, depression, anxiety presented to ER with c/o N/V/D x 1 day. Patient reports history of IBS and years ago had IBS primarily diarrhea however now mostly constipation but manages with diet. She reports that started with nausea and vomiting started yesterday. Diarrhea started in afternoon. States numerous episodes of vomiting and diarrhea. States then started with bloody diarrhea. She reports losing 6lbs in past 24 hours. Also having left lower abdomen discomfort moving across lower abdomen and reports pain is sharp. Reports sweats and tactile fever but did not check her temperature. Feeling dizzy and weak today. Reports has intermittent episodes of palpitations and has associated chest pain and notes elevated HR on her apple watch that has been ongoing for years. States yesterday had some palpitations however not as severe as her "usual" previous episodes and denies any chest pain with this episode yesterday. Denies any chest pains today. Denies hematemesis, VILLAVICENCIO, syncope, vision changes, neck pain, CP, SOB, cough, sore throat, rhinorrhea, paresthesias, weakness, extremity weakness, extremity edema, rashes, urinary symptoms. Admission Exam Per Admitting Provider See H&P Discharge Exam Constitutional: Alert, nontoxic HEENT: Mucous membranes moist. Lungs: Clear to auscultation, decreased, no wheezes rales or rhonchi CV: S1-S2, regular Abdomen: Soft, nontender, nondistended Extremities: No significant edema Neuro: No focal deficits Psych: Cooperative, normal mood Updated Medication List Medication Instructions Recorded Confirmed Type alprazolam 0.5 mg tablet (Xanax) 0.5 mg PO BID PRN Sleep #0 tabs 10/10/14 02/27/25 History desvenlafaxine succinate 50 mg 50 mg PO QAM 01/24/24 02/27/25 History tablet,extended release 24 hr esomeprazole magnesium 40 mg 40 mg PO HS 01/24/24 02/27/25 History capsule,delayed release estradiol 0.01% (0.1 mg/gram) 1 g vaginal [id number] PRN Other 01/24/24 02/27/25 History vaginal cream lisinopril 10 mg tablet 10 mg PO QAM 01/24/24 02/27/25 History multivitamin 1 tab PO HS 01/24/24 02/27/25 History tolterodine 4 mg capsule,extended 4 mg PO QAM 01/24/24 02/27/25 History release 24 hr dextromethorphan-guaifenesin ER 60 1 tab PO QAM 02/24/24 02/27/25 History mg-1,200 mg tab,extend release,12hr (Mucinex DM) loratadine 10 mg tablet (Allergy 10 mg PO DAILY 02/24/24 02/27/25 History Relief (loratadine)) magnesium 200 mg tablet 400 mg PO DAILY 02/24/24 02/27/25 History diltiazem HCl 180 mg capsule,24 180 mg PO DAILY 02/27/25 02/27/25 History hr,extended release flecainide 50 mg tablet 50 mg PO BID 02/27/25 02/27/25 History amoxicillin 875 mg-potassium 1 tab PO BIDM 3 days #6 tabs 03/02/25 Rx clavulanate 125 mg tablet Hospital Stay Data Consultations 02/27/25 12:12 ED Decision to Admit Stat 02/27/25 15:10 Consult Cardiology Routine Consult Gastroenterology Routine Procedures Performed Operation Date: 03/01/25 17:00 Actual Procedures p Flexible Sigmoidoscopy Biopsy - Froy Decker MD Diagnostic Imagining Performed 02/27/25 09:42 CTA abdomen pelvis w con [CT angio abdomen pelvis w con] Stat Reviewed imaging, laboratory and diagnostic studies. Pertinent findings as below. WBCs 9.0 Hemoglobin 12.7 Platelets of 256 Electrolytes stable Creatinine 0.89 CTA of the abdomen pelvis showed evidence of left-sided proctocolitis. Mild to moderate atherosclerosis without any significant high-grade stenosis Pending Results Patient Have Any Pending Studies at Discharge: No Discharge Instructions Given to Patient (Per Discharging Provider) Follow-up with your outpatient providers as scheduled You may continue to see a little bit of blood in your stool over the next few days but will resolve. If you start to have more bleeding you must return to the ED Total Time Total Time Spent Total Time Spent (In Minutes): 34
--- NOTE | 2025-03-02 12:07 | Gastroenterology Progress Note ---
Date of Service March 02, 2025 Assessment & Plan (1) Acute ischemic colitis: Plan: Improving greatly. Pathology pending from sigmoidoscopy. No further acute inpatient GI plans. She tells me she is being discharged today. Admission and Anticipated Discharge Date Admission Date: February 27, 2025 Supervising Physician Co-Signing Physician Notes Agree with above. Should resolve completely and spontaneously on its own. Return if worsening pain bleeding or bowel obstruction symptoms. Frequent smaller meals may be of benefit. Subjective Patient is a 70 yo female with ischemic colitis. She is doing well today. She is in her normal clothes and is preparing for discharge. H/H was 12.7/37.6. Sigmoidoscopy yesterday confirmed ischemic colitis. Pathology pending. Review of Systems Review of Systems: pain, diarrhea, bleeding improved Physical Exam Constitutional: well developed Psychiatric: Orientation: alert and oriented x 3 Results & Data Results & Data Vital Signs (Past 12 Hours) Vital Signs Temp Pulse Resp BP Pulse Ox O2 Del Method 03/02/25 07:00 37.1 C 80 16 99/62 L 94 Room Air PG Care Time/CCT Total # of Minutes Spent Total Time Spent with Patient: Total time spent is greater than 50% in coordination of care (as documented) at patient's floor/unit and/or counseling patient: Coding Level of Care Code 78036 SUB INP/OBS CARE 06/24MIN Diagnoses Acute ischemic colitis K55.039
== END 2025-03-02 12:38 | disposition home or self-care (01) | DRG 394 ==
LOC: ED 08:36 → SUATTDRO 12:55 → 4W 12:55 → 3W 02-28 21:20